=== PATIENT | male | born 1955 | race Caucasian/White ===

== ENCOUNTER → 2016-07-17 | Outpatient (CLI) | payer OTHER ==
[2016-07-17 21:31] LABS: Prothrombin Time 19.2 sec (9.0-12.0)
== END | disposition home or self-care (01) ==
LOC: MMGSC 16:39
PROVIDERS: ATTEND Family Medicine
DX: Z79.01 Long term (current) use of anticoagulants (principal); Z51.81 Encounter for therapeutic drug level monitoring
CPT/HCPCS: 85610

== ENCOUNTER → 2016-07-17 | Outpatient (CLI) | payer OTHER ==
[2016-07-17 21:28] LABS: CH 29.7; CHCM 32.3; HDW 2.59; HGB 12.6 gm/dL (13.0-17.5); MCH 29.9 pg (25.0-35.0); MCHC 32.3 g/dL (31.0-37.0); MCV 92.5 fL (80.0-100.0); Mean Platelet Volume 7.2; RBC 4.22 m/uL (4.30-5.90); RDW 12.8 % (11.5-15.5); WBC 6.7 k/uL (3.8-10.6)
[2016-07-17 21:34] LABS: ALT 40 U/L (21-72); AST 30 U/L (17-59)
== END | disposition home or self-care (01) ==
LOC: MMGSC 16:27
PROVIDERS: ATTEND Internal Medicine Endocrinology, Diabetes & Metabolism
DX: E05.00 Thyrotoxicosis with diffuse goiter without thyrotoxic crisis or storm (principal); K71.9 Toxic liver disease, unspecified; D70.1 Agranulocytosis secondary to cancer chemotherapy
CPT/HCPCS: 36415; 84439; 84443; 84450; 84460; 84481; 85027

== ENCOUNTER → 2016-08-25 | Outpatient (CLI) | payer BC ==
[2016-08-25 20:36] LABS: Calcium 9.1 mg/dL (8.4-10.2); Potassium 4.8 mmol/L (3.5-5.1); Total Bilirubin 0.4 mg/dL (0.2-1.3); Total Protein 6.9 g/dL (6.3-8.2)
[2016-08-25 20:40] LABS: Basophils % (A) 1 %; CH 29.9; CHCM 32.7; Eosinophils # (A) 0.2 k/uL (0-0.7); Eosinophils % (A) 3 %; HCT 43.4 % (39.0-53.0); HDW 2.69; HGB 13.8 gm/dL (13.0-17.5); Luc # (Auto) 0.16; Luc % (Auto) 2; Lymphocytes # (A) 2.3 k/uL (1.0-4.8); Lymphocytes % (A) 34 %; MCH 29.3 pg (25.0-35.0); MCHC 31.8 g/dL (31.0-37.0); MCV 92.1 fL (80.0-100.0); Mean Platelet Volume 7.7; Monocytes # (A) 0.4 k/uL (0-1.0); Monocytes % (A) 5 %; Neutrophils # (A) 3.6 k/uL (1.3-7.7); Neutrophils % (A) 54 %; RBC 4.71 m/uL (4.30-5.90); RDW 13.5 % (11.5-15.5); WBC 6.7 k/uL (3.8-10.6); WBC (Perox) 6.58
[2016-08-25 21:44] LABS: INR 1.4 (<1.1); Prothrombin Time 13.6 sec (9.0-12.0)
== END | disposition home or self-care (01) ==
LOC: MMGSC 16:06
PROVIDERS: ATTEND Family Medicine
DX: Z00.00 Encounter for general adult medical examination without abnormal findings (principal); Z12.5 Encounter for screening for malignant neoplasm of prostate; E03.9 Hypothyroidism, unspecified; Z79.01 Long term (current) use of anticoagulants
CPT/HCPCS: 84439; 80053; 80061; 84443; 85025; 85610; 84480; 36415; G0103

== ENCOUNTER → 2016-09-14 | Outpatient (CLI) | payer BC ==
[2016-09-14 18:24] LABS: CHCM 32.8; HCT 39.7 % (39.0-53.0); HDW 2.75; HGB 13.2 gm/dL (13.0-17.5); MCH 30.4 pg (25.0-35.0); MCHC 33.1 g/dL (31.0-37.0); MCV 91.8 fL (80.0-100.0); Mean Platelet Volume 7.7; RBC 4.32 m/uL (4.30-5.90); RDW 14.2 % (11.5-15.5); WBC 6.4 k/uL (3.8-10.6)
== END | disposition home or self-care (01) ==
LOC: MMGSC 15:20
PROVIDERS: ATTEND Internal Medicine Endocrinology, Diabetes & Metabolism
DX: E05.00 Thyrotoxicosis with diffuse goiter without thyrotoxic crisis or storm (principal); D70.1 Agranulocytosis secondary to cancer chemotherapy; K71.9 Toxic liver disease, unspecified
CPT/HCPCS: 36415; 84439; 84443; 84450; 84460; 84481; 85027

== ENCOUNTER → 2016-09-14 | Outpatient (CLI) | payer BC ==
[2016-09-14 18:36] LABS: INR 2.1 (<1.1); Prothrombin Time 20.2 sec (9.0-12.0)
== END | disposition home or self-care (01) ==
LOC: MMGSC 15:13
PROVIDERS: ATTEND Family Medicine
DX: Z79.01 Long term (current) use of anticoagulants (principal); Z51.81 Encounter for therapeutic drug level monitoring
CPT/HCPCS: 36415; 85610

== ENCOUNTER → 2016-10-27 | Outpatient (CLI) | payer BC ==
[2016-10-27 19:34] LABS: INR 1.3 (<1.1); Prothrombin Time 12.6 sec (9.0-12.0)
== END | disposition home or self-care (01) ==
LOC: MMGSC 15:45
PROVIDERS: ATTEND Family Medicine
DX: Z51.81 Encounter for therapeutic drug level monitoring (principal); Z79.01 Long term (current) use of anticoagulants
CPT/HCPCS: 36415; 85610

== ENCOUNTER → 2017-02-02 | Outpatient (CLI) | payer BC ==
[2017-02-02 21:14] LABS: CH 30.3; CHCM 32.4; HCT 41.7 % (39.0-53.0); HGB 13.7 gm/dL (13.0-17.5); MCH 30.8 pg (25.0-35.0); MCHC 32.8 g/dL (31.0-37.0); Mean Platelet Volume 7.2; RBC 4.44 m/uL (4.30-5.90); RDW 13.5 % (11.5-15.5); WBC 7.8 k/uL (3.8-10.6)
== END ==
LOC: MMGSC 16:02
PROVIDERS: ATTEND Internal Medicine Endocrinology, Diabetes & Metabolism
DX: E05.00 Thyrotoxicosis with diffuse goiter without thyrotoxic crisis or storm (principal); K71.9 Toxic liver disease, unspecified
CPT/HCPCS: 36415; 84439; 84443; 84450; 84460; 84481; 85027

== ENCOUNTER → 2017-02-02 | Outpatient (CLI) | payer BC ==
[2017-02-02 21:09] LABS: Prothrombin Time 10.3 sec (9.0-12.0)
== END ==
LOC: MMGSC 16:04
PROVIDERS: ATTEND Family Medicine
DX: Z51.81 Encounter for therapeutic drug level monitoring (principal); Z79.01 Long term (current) use of anticoagulants
CPT/HCPCS: 85610

== ENCOUNTER → 2017-02-16 | Outpatient (CLI) | payer BC ==
[2017-02-16 17:11] LABS: CH 30.2; CHCM 33.1; HCT 38.8 % (39.0-53.0); HDW 2.52; HGB 13.2 gm/dL (13.0-17.5); MCH 31.2 pg (25.0-35.0); MCV 91.7 fL (80.0-100.0); Mean Platelet Volume 6.6; RBC 4.23 m/uL (4.30-5.90); RDW 13.5 % (11.5-15.5); WBC 6.8 k/uL (3.8-10.6)
== END | disposition home or self-care (01) ==
LOC: LABPAT 16:39
PROVIDERS: ATTEND Internal Medicine Interventional Cardiology
DX: Z01.812 Encounter for preprocedural laboratory examination (principal); I48.2 Chronic atrial fibrillation
CPT/HCPCS: 36415; 80051; 82565; 84520; 85027

== ENCOUNTER → 2017-05-25 | Outpatient (CLI) | payer BC ==
[2017-05-25 20:08] LABS: INR 1.4 (<1.2); Prothrombin Time 13.8 sec (9.0-12.0)
== END | disposition home or self-care (01) ==
LOC: MMGSC 16:09
PROVIDERS: ATTEND Family Medicine
DX: E03.9 Hypothyroidism, unspecified (principal); Z79.01 Long term (current) use of anticoagulants
CPT/HCPCS: 36415; 84439; 84443; 84481; 85610

== ENCOUNTER → 2017-05-31 | Outpatient (CLI) | payer BC ==
[2017-05-31 18:31] LABS: INR 3.8 (<1.2); Prothrombin Time 37.6 sec (9.0-12.0)
== END ==
LOC: MMGSC 13:48
PROVIDERS: ATTEND Family Medicine
DX: Z51.81 Encounter for therapeutic drug level monitoring (principal); Z79.01 Long term (current) use of anticoagulants
CPT/HCPCS: 36415; 85610

== ENCOUNTER → 2017-06-07 | Outpatient (CLI) | payer BC ==
[2017-06-07 20:25] LABS: INR 1.7 (<1.2); Prothrombin Time 16.2 sec (9.0-12.0)
== END ==
LOC: MMGSC 15:10
PROVIDERS: ATTEND Family Medicine
DX: Z51.81 Encounter for therapeutic drug level monitoring (principal); Z79.01 Long term (current) use of anticoagulants
CPT/HCPCS: 36415; 84439; 84443; 84481; 85610

== ENCOUNTER → 2017-07-09 | Outpatient (CLI) | payer BC ==
[2017-07-09 18:53] LABS: Prothrombin Time 18.5 sec (9.0-12.0)
[2017-07-09 19:10] LABS: T4, Free (Free Thyroxine) 0.59 ng/dL (0.78-2.19)
== END | disposition home or self-care (01) ==
LOC: MMGSC 16:50
PROVIDERS: ATTEND Family Medicine
DX: E03.9 Hypothyroidism, unspecified (principal); Z51.81 Encounter for therapeutic drug level monitoring; Z79.01 Long term (current) use of anticoagulants
CPT/HCPCS: 36415; 84439; 84443; 84481; 85610

== ENCOUNTER → 2017-07-21 | Outpatient (CLI) | payer BC | END | disposition home or self-care (01) | LOC: MMGSC 15:11 | PROVIDERS: ATTEND Family Medicine | DX: R04.0 Epistaxis (principal) | CPT/HCPCS: 87070; 87077; 87186 ==

== ENCOUNTER → 2017-08-04 | Day surgery (SDC) | payer BC ==
[2017-08-03 13:59] VITALS: BMI 25.1
[~2017-08-04] MED LIST: LACTATED RINGERS 1,000 ML IV SCH; LIDOCAINE 1% 20 ML VIAL (10MG/ML) FOR IV START INTRADERMA ONE; LIDOCAINE 1% 20 ML VIAL (10MG/ML) FOR IV START INTRADERMA PRN; LIDOCAINE 1% INJ 10MG/ML (20 ML MDV) ONE; PROPOFOL 10 MG/ML 20 ML VIAL IV ONE; SODIUM CHLORIDE 0.9% 500 ML IV ONE
[2017-08-04 09:39] VITALS: RESP 16; TEMP 97.8
--- NOTE | 2017-08-04 10:21 | P.OP ---
Date of Procedure: 08/11/17 Preoperative Diagnosis: Refractory gastroesophageal reflux disease History of hiatal hernia History of anemia Postoperative Diagnosis: Same Procedure(s) Performed: Esophagogastroduodenoscopy with biopsy Anesthesia: MAC Surgeon: Francoise Alexis Pathology: other Condition: stable Disposition: PACU Indications for Procedure: 61 years old male with known history of hiatal hernia and reflux disease presents with worsening symptoms. Informed consent obtained and patient elected to undergo EGD with biopsy. Operative Findings: Refractory GERD Description of Procedure: A timeout was performed to verify the correct patient and correct procedure. Patient was on continuous vitals and pulse ox monitoring throughout the procedure. She was placed in lateral decubitus position and an oral bite block was inserted. A well-lubricated Olympus upper endoscope was passed per orally. The esophagus was intubated without difficulty. The vocal cords were visualized and protected at all times. The endoscope was passed beyond the pylorus into the first and second portion of the duodenum. Duodenitis noted and random biopsies taken using cold biopsy forceps. Two random biopsies were taken from the gastric antrum using cold biopsy forceps. The scope was then retroflexed. Hill grade 2 hiatal hernia was noted. No mass, active ulcer or bleeding stigmata noted within the gastric lumen. The GE junction is measured at 35 cm from the incisors and diaphragmatic impression at 38 cms . LA grade 1 reflux esophagitis noted and the area was biopsied using cold biopsy forceps. The endoscope was gradually withdrawn. No abnormality identified in the remaining esophagus. Patient tolerated the procedure well and was taken to post anesthesia care unit in stable condition. FINAL DIAGNOSIS: 1. Hill Grade 1 Hiatal hernia 2. Gastro esophageal reflux disease 3. Duodenitis SPECIMEN: Antral biopsy GE junction bx Duodenum bx RECOMMENDATION: 1. Esophageal 24 hr pH and manometry study Final Pathologic Diagnosis A. DUODENAL MUCOSA (ENDOSCOPIC BIOPSY): NO SIGNIFICANT DIAGNOSTIC ALTERATIONS ; NO EPITHELIAL LYMPHOCYTOSIS, VILLOUS ATROPHY OR OTHER SPRUE-LIKE CHANGES IDENTIFIED. B. GASTRIC MUCOSA, ANTRUM (ENDOSCOPIC BIOPSY): NO SIGNIFICANT DIAGNOSTIC ALTERATIONS. NO HELICOBACTER-LIKE ORGANISMS ARE IDENTIFIED BY IMMUNOSTAIN (CONTROLS APPROPRIATE). C. SQUAMOUS AND GASTRIC MUCOSA, GASTROESOPHAGEAL JUNCTION (ENDOSCOPIC BIOPSY): MILD CHRONIC ESOPHAGO-GASTRITIS; NO GOBLET CELL METAPLASIA, DYSPLASIA OR MALIGNANCY IDENTIFIED.
[2017-08-04 11:31] VITALS: BP 118/70; PULSE 70
== END ==
LOC: ORWHC2ENDO 08:27
PROVIDERS: ATTEND Surgery
DX: K21.0 Gastro-esophageal reflux disease with esophagitis (principal); K29.70 Gastritis, unspecified, without bleeding; K44.9 Diaphragmatic hernia without obstruction or gangrene; K29.80 Duodenitis without bleeding; E05.90 Thyrotoxicosis, unspecified without thyrotoxic crisis or storm; D62 Acute posthemorrhagic anemia; I48.91 Unspecified atrial fibrillation; Z79.01 Long term (current) use of anticoagulants; Z79.82 Long term (current) use of aspirin; Z79.899 Other long term (current) drug therapy
CPT/HCPCS: 88305; 88342; 43239; J2001; J2704

== ENCOUNTER → 2017-08-11 | Outpatient (CLI) | payer BC ==
[2017-08-11 19:21] LABS: INR 1.4 (<1.2)
== END | disposition home or self-care (01) ==
LOC: MMGSC 16:57
PROVIDERS: ATTEND Family Medicine
DX: Z51.81 Encounter for therapeutic drug level monitoring (principal); Z79.01 Long term (current) use of anticoagulants
CPT/HCPCS: 36415; 85610

== ENCOUNTER → 2017-08-23 | Outpatient (CLI) | payer BC ==
[2017-08-23 20:41] LABS: INR 2.3 (<1.2); Prothrombin Time 20.9 sec (9.0-12.0)
== END | disposition home or self-care (01) ==
LOC: MMGSC 16:48
PROVIDERS: ATTEND Family Medicine
DX: Z51.81 Encounter for therapeutic drug level monitoring (principal); Z79.01 Long term (current) use of anticoagulants
CPT/HCPCS: 36415; 85610

== ENCOUNTER → 2018-01-14 | Day surgery (SDC) | payer BC ==
[2018-01-10 16:00] VITALS: BMI 23.3
--- NOTE | 2018-01-13 18:02 | P.GSHP ---
History of Present Illness H&P Date: 01/14/18 CHIEF COMPLAINT: Inguinal hernia, left HISTORY OF PRESENT ILLNESS: The patient is a 62-year-old male who presents with a history of swelling and pain along the left groin. He's noted increased swelling including pain of the area. Now he presents for repair of his inguinal hernia. PAST MEDICAL HISTORY: Please see list. PAST SURGICAL HISTORY: Please see list. MEDICATIONS: Please see list. ALLERGIES: Please see list. SOCIAL HISTORY: No illicit drug use FAMILY HISTORY: No reports of Crohn disease or ulcerative colitis. REVIEW OF ORGAN SYSTEMS: CONSTITUTIONAL: No reports of fevers or chills. No reports of weight loss despite prior attempts. GI: Denies any blood in stools or constipation. PHYSICAL EXAM: VITAL SIGNS: Stable GENERAL: Well-developed pleasant male in no acute distress. HEENT: No scleral icterus. Extraocular movements grossly intact. Moist buccal mucosa. NECK: Supple without lymphadenopathy. CHEST: Unlabored respirations. Equal bilateral excursions. CARDIOVASCULAR: Regular rate and rhythm. Distal 2+ pulses. ABDOMEN: Soft, nondistended. No peritoneal signs. Palpable defect of the left groin. MUSCULOSKELETAL: No clubbing, cyanosis, or edema. ASSESSMENT: 1. Inguinal hernia, left PLAN: 1. Recommend proceeding with a robotic inguinal repair with mesh with possible bilateral approach. 2. Benefits and risks of surgical intervention was discussed including possibility of open technique. 3. DVT prophylaxis. 4. Antibiotic prophylaxis. 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 ANEMIA (HX OF IRON INFUSIONS., GRAVES DISEASE., RT KIDNEY-WEAK- POSSIBLE KIDNEY TRANSPLANT TO GO TO [facility] IN WEEKS. History of Any Multi-Drug Resistant Organisms: None Reported Past Surgical History: Hernia Repair Additional Past Surgical History / Comment(s): lt kidney removed (CHILD). EGD Past Anesthesia/Blood Transfusion Reactions: No Reported Reaction Smoking Status: Never smoker - Past Family History Mother Family Medical History: No Reported History Medications and Allergies Home Medications Medication Instructions Recorded Confirmed Type PARoxetine [Paxil] 20 mg PO DAILY 05/02/14 01/10/18 History Warfarin [Coumadin] 2.5 mg PO DAILY 10/22/14 07/02/18 History Calcitriol 0.25 mcg PO DIRECTED 08/03/17 01/10/18 History Cholecalciferol (Vitamin D3) 2,000 unit PO DAILY 08/03/17 01/10/18 History [Vitamin D3] Methimazole [Tapazole] 20 mg PO BID 08/03/17 01/10/18 History Allergies Allergy/AdvReac Type Severity Reaction Status Date / Time No Known Allergies Allergy Verified 01/10/18 15:51
[~2018-01-14] MED LIST changes: +BUPIVACAINE (PF) 0.5% 30 ML VIAL SQ ONE; +DEXAMETHASONE SOD PHOSPHATE 10 MG/ML 1 ML VIAL IV ONE; +GLYCOPYRROLATE 0.2 MG/ML 2 ML VIAL ONE; +HEPARIN SODIUM,PORCINE 5,000 UNIT/ML 1 ML VIAL SQ ONE; +HEPARIN SODIUM,PORCINE 5,000 UNIT/ML 1 ML VIAL SQ STA; +HYDROcodone/APAP 5-325MG 1 EACH TAB PO ONE; +HYDROmorphone 0.5 MG/0.5 ML SYRINGE IVP PRN; +KETOROLAC 30 MG/ML 1 ML VIAL ONE; +LABETALOL 5 MG/ML VIAL MDV ONE; +LACTATED RINGERS 1,000 ML IV ONE; -LACTATED RINGERS 1,000 ML IV SCH; -LIDOCAINE 1% 20 ML VIAL (10MG/ML) FOR IV START INTRADERMA ONE; +MIDAZOLAM 2 MG/2 ML VIAL IV PRN; +MIDAZOLAM 2 MG/2 ML VIAL ONE; +NEOSTIGMINE 1 MG/ML 10 ML VIAL ONE; +ONDANSETRON 4 MG/2 ML VIAL IVP ONE; +ROCURONIUM BROMIDE 10 MG/ML 10 ML VIAL IV ONE; +SCOPOLAMINE 1.5MG/72HR PATCH TRANSDERM ONE; -SODIUM CHLORIDE 0.9% 500 ML IV ONE; +TAMSULOSIN 0.4 MG CAP.ER.24H PO STA; +ceFAZolin IN SWFI 2 GM/20 ML SYRINGE IVP ONE; +fentaNYL (PF) 50 MCG/ML 2 ML AMP ONE; +hydrALAZINE HCL 20 MG/ML 1 ML VIAL IVP ONE
[2018-01-14 10:03] LABS: INR 1.2 (<1.2); Prothrombin Time 11.4 sec (9.0-12.0)
[2018-01-14] MEDS: LACTATED RINGERS 1,000 ML IV SCH ×2 (10:05→11:41)
--- NOTE | 2018-01-14 13:04 | P.OP ---
Date of Procedure: 01/14/18 Description of Procedure: SURGEON: JACKELIN HARDY MD PREOPERATIVE DIAGNOSES: 1. History of right inguinal hernia repaire 2. Left inguinal hernia, initial 3. Atrial fibrillation 4. History of CVA 5. Chronic anticoagulation 6. Hyperlipidemia POSTOPERATIVE DIAGNOSES: 1. History of right inguinal hernia repaire 2. Left inguinal hernia, initial 3. Atrial fibrillation 4. History of CVA 5. Chronic anticoagulation 6. Hyperlipidemia 7. Symptomatic left incarcerated inguinal hernia, indirect. 8. Inguinal lipoma, left side OPERATION: 1. Robotic assisted da Bob Xi laparoscopic left inguinal hernia repair with ventralight ST mesh, 11.4 cm. 2. Excision of inguinal lipoma, left side ANESTHESIA: General with local anesthetic ESTIMATED BLOOD LOSS: 5 mL. SPECIMENS REMOVED: Left inguinal lipoma and sac COMPLICATIONS: None. FINDINGS: 1. Left inguinal hernia, indirect, 3+ cm, Nyhus type 3. 2. Less than 1 cm recurrent right indirect inguinal hernia with mesh identified 3. Console time 26 minutes INDICATIONS: The patient is a 62-year-old gentleman who presents with history of right groin hernia repair now with left-sided pain. Now presents for definitive surgical intervention. Laparoscopic versus open and robotic approaches were discussed. Benefits and risks including bleeding, infection, injury to the vas deferens as well as sterility and chronic groin pain were reviewed. Placement of mesh was also described. Informed consent was obtained. DESCRIPTION: In the preoperative area, the patient was marked with indelible marker along the left groin. The patient was brought to the operating room and initially laid in supine position. After general induction, he was repositioned in modified lithotomy position. The abdomen had been prepped and draped in standard sterile fashion. Ioban draping was also placed. Prior to incision, a timeout protocol was confirmed with surgical team regarding patient's name including procedures to be performed and location along the left groin. Initial positioning for the robotic assisted ports were selected whereby 20 cm superior to the target anatomy, 0 degree 5 mm laparoscopic trocar entry was performed at the left upper quadrant. The abdomen was insufflated to 15 mmHg which he had tolerated well. Diagnostic laparoscopy demonstrated lesions along the left pelvis. Additionally the sigmoid colon was adherent to the left groin with a large indirect left inguinal hernia over 3 cm in size. The right groin had less than 1 cm albeit very small recurrent indirect inguinal hernia for which he was asymptomatic. Next, along the epigastrium, 8 mm robot trocar was placed. An 8-mm robotic trocar was placed under direct visualization at the right upper quadrant. The 5 mm port was exchanged for a 8 mm trocar. All trocars were positioned between 8 to 10-cm apart from each other. The [employer] XI robot was primed, draped, prepared for docking along the left side of the patient. I then went to the [employer] Xi console. The project construction assistant manager was at bedside for exchange of the robot arms and equipment. Attention was brought to the left groin where peritoneal adhesions were identified incorporating the greater omentum and addressed using sharp dissection with a scissor and cautery. At the left groin, a over 3 cm indirect inguinal hernia was identified. The hernia sac was evaginated whereby the peritoneum was scored using Endo scissors with cautery. The hernia sac had reached to the scrotum and was transected using scissors with cautery. Once completely reduced into the abdominal cavity, the peritoneal sac of the hernia was stripped without a lipoma identified. The sac was resected and then passed off for further pathological analysis. The size of the hernia defect was 3 cm with intraoperative films obtained. Using a 2-0 VLOC, the peritoneal defect of the left inguinal hernia site was closed using a pursestring suture.. The defect was found to be completely closed with complete reduction of the left inguinal hernia was confirmed. As an onlay, an 11.[address] mesh by [facility] was cut in half and entered into the abdominal cavity via the 8 mm trocar. The mesh was tacked to the pelvis using 2-0 VLOC 9-inch length sutures. The robot was undocked from the patient's bedside. I then rescrubbed into the case. Insufflation was released from the abdominal cavity and all instruments were removed from the abdominal cavity. The rest of incisions were reapproximated using 4-0 Monocryl in a running subcuticular fashion. Local anesthetic was placed along the incision including for a groin block. Incisions were cleansed using dilute hydrogen peroxide. Liquid glue was applied to the skin. At the end of the procedure, the needle, sponge and instrument counts had been verified correct by the digital field service technician. The patient had tolerated the procedure well and was taken to the postanesthesia care unit in stable condition. Plan - Discharge Summary New Discharge Prescriptions: No Action PARoxetine [Paxil] 20 mg PO DAILY Warfarin [Coumadin] 2.5 mg PO DAILY Methimazole [Tapazole] 20 mg PO BID Cholecalciferol (Vitamin D3) [Vitamin D3] 2,000 unit PO DAILY Calcitriol 0.25 mcg PO DIRECTED Discharge Medication List PARoxetine [Paxil] 20 mg PO DAILY 05/02/14 [History] Warfarin [Coumadin] 2.5 mg PO DAILY 05/02/14 [History] Calcitriol 0.25 mcg PO DIRECTED 08/03/17 [History] Cholecalciferol (Vitamin D3) [Vitamin D3] 2,000 unit PO DAILY 08/03/17 [History] Methimazole [Tapazole] 20 mg PO BID 08/03/17 [History]
[2018-01-14 13:18] VITALS: TEMP 96.9
[2018-01-14 14:20] VITALS: BP 118/77; PULSE 99; RESP 17
== END | disposition home or self-care (01) ==
LOC: OR 08:38
PROVIDERS: ATTEND Surgery Plastic and Reconstructive Surgery
DX: K40.30 Unilateral inguinal hernia, with obstruction, without gangrene, not specified as recurrent (principal); D17.79 Benign lipomatous neoplasm of other sites; K66.0 Peritoneal adhesions (postprocedural) (postinfection); I48.91 Unspecified atrial fibrillation; K21.9 Gastro-esophageal reflux disease without esophagitis; E78.5 Hyperlipidemia, unspecified; I10 Essential (primary) hypertension; Z90.5 Acquired absence of kidney; D64.9 Anemia, unspecified; E05.00 Thyrotoxicosis with diffuse goiter without thyrotoxic crisis or storm; Z86.73 Personal history of transient ischemic attack (TIA), and cerebral infarction without residual deficits; Z79.01 Long term (current) use of anticoagulants; Z79.899 Other long term (current) drug therapy
CPT/HCPCS: 85610; 49650; C1781; J2250; J0360; J1644; J1100; J2710; J2405; J2001; J3010; J1885; J2704; J0690; 88302

== ENCOUNTER → 2018-01-17 | Outpatient (CLI) | payer BC ==
[2018-01-17 15:15] LABS: Basophils % (A) 1 %; Eosinophils # (A) 0.3 k/uL (0-0.7); Eosinophils % (A) 6 %; HCT 32.4 % (39.0-53.0); HGB 10.6 gm/dL (13.0-17.5); Lymphocytes # (A) 1.4 k/uL (1.0-4.8); Lymphocytes % (A) 27 %; MCH 30.7 pg (25.0-35.0); MCHC 32.8 g/dL (31.0-37.0); MCV 93.6 fL (80.0-100.0); Monocytes # (A) 0.3 k/uL (0-1.0); Monocytes % (A) 6 %; Neutrophils % (A) 59 %; Platelet Count 194 k/uL (150-450); RBC 3.46 m/uL (4.30-5.90); WBC 5.2 k/uL (3.8-10.6)
[2018-01-17 15:32] LABS: Albumin 3.6 g/dL (3.5-5.0); Calcium 8.9 mg/dL (8.4-10.2); Potassium 5.3 mmol/L (3.5-5.1)
[2018-01-18 02:10] LABS: Iron Saturation 16.15 (15.00-50.00)
[2018-01-18 02:44] LABS: Parathyroid Hormone Intact 217.2 pg/mL (14.0-72.0)
== END | disposition home or self-care (01) ==
LOC: LABWHC1 14:19
PROVIDERS: ATTEND Internal Medicine Nephrology
DX: N18.5 Chronic kidney disease, stage 5 (principal); M10.9 Gout, unspecified; E21.3 Hyperparathyroidism, unspecified; D63.1 Anemia in chronic kidney disease
CPT/HCPCS: 36415; 80048; 82040; 82728; 83540; 83550; 83735; 83970; 84100; 84550; 85025

== ENCOUNTER 2018-02-02 19:06 | Inpatient (IN) | payer BC ==
[2018-02-02] MEDS ORDERED: MORPHINE SULFATE 2 MG/ML SYRINGE IVP STA (19:35)
[2018-02-02] MEDS ORDERED: SODIUM CHLORIDE 0.9% 1,000 ML IV STA (19:35)
[2018-02-02] MEDS ORDERED: ONDANSETRON 4 MG/2 ML VIAL IVP STA (19:35)
--- NOTE | 2018-02-02 19:40 | ED ---
Abdominal Pain HPI - General Source: patient Mode of arrival: ambulatory Limitations: no limitations <Jessica Desouza - Last Filed: 02/03/18 17:09> <Grupo Mazariegos - Last Filed: 02/08/18 07:53> - General Chief Complaint: Abdominal Pain Stated Complaint: 2wks post surgical pain,vomiting Time Seen by Provider: 02/02/18 19:19 - History of Present Illness Initial Comments: 62-year-old male patient presents to the emergency department today for evaluation of abdominal pain, nausea, and vomiting that started this morning. Patient states that he underwent hernia repair with Dr. Carrera on 2017. Patient states things had been going well however he went back to work yesterday. Patient states that he resume normal duty which included lifting heavy items. Patient states that today started have some discomfort around the left lateral incision site. Patient states it seems to be bulging out. Patient states that he is now having more severe abdominal pain. States he has been nauseated throughout the day and did vomit twice at work. Patient denies any hematemesis. States he has been having normal bowel movements however today they were more loose. He denies any hematochezia or melena. Denies any fevers or chills. Denies any chest pain or shortness of breath with this. States that he did have some sweats after the vomiting episodes. Patient does also have a history of kidney failure and is being put on a transplant list in the near future. He does not yet receive dialysis. Patient denies any recent rash, back pain, numbness, tingling, dizziness, weakness, hematuria, dysuria, urinary urgency, urinary frequency, headache, visual changes, or any other complaints. (Jessica Desouza) - Related Data Home Medications Medication Instructions Recorded Confirmed PARoxetine [Paxil] 20 mg PO DAILY 05/02/14 02/03/18 Warfarin [Coumadin] 2.5 mg PO SUMOTUWETH 05/02/14 02/03/18 Calcitriol 0.25 mcg PO DAILY 08/03/17 02/03/18 Cholecalciferol (Vitamin D3) 4,000 unit PO DAILY 08/03/17 02/03/18 [Vitamin D3] Methimazole [Tapazole] 10 mg PO DAILY 08/03/17 02/03/18 Febuxostat [Uloric] 40 mg PO DAILY 02/03/18 02/03/18 amLODIPine [Norvasc] 5 mg PO DAILY 02/03/18 02/03/18 Previous Rx's Medication Instructions Recorded Sodium Bicarbonate Tab 650 mg PO BID #60 tab 02/06/18 Allergies Allergy/AdvReac Type Severity Reaction Status Date / Time No Known Allergies Allergy Verified 02/02/18 19:15 Review of Systems ROS Other: All systems not noted in ROS Statement are negative. <Jessica Desouza - Last Filed: 02/03/18 17:09> ROS Other: All systems not noted in ROS Statement are negative. <Grupo Mazariegos - Last Filed: 02/08/18 07:53> ROS Statement: Those systems with pertinent positive or pertinent negative responses have been documented in the HPI. 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 ANEMIA (HX OF IRON INFUSIONS., GRAVES DISEASE., RECENT FALL ON ICE AND HAS LARGE BRUISE LEFT HIP. , HAVING NAUSEA, GAS AND BLOATING. History of Any Multi-Drug Resistant Organisms: None Reported Past Surgical History: Hernia Repair Additional Past Surgical History / Comment(s): lt kidney removed (CHILD) Past Anesthesia/Blood Transfusion Reactions: No Reported Reaction Past Psychological History: No Psychological Hx Reported Smoking Status: Never smoker Past Alcohol Use History: None Reported Past Drug Use History: None Reported - Past Family History Mother Family Medical History: No Reported History <Jessica Desouza - Last Filed: 02/03/18 17:09> General Exam Limitations: no limitations General appearance: alert, in no apparent distress, other (This is a well- developed, well-nourished adult male patient in no acute distress. Vital signs upon presentation are temperature 98.9F, pulse 91, respirations 18, blood pressure 137/68, pulse ox 99% on room air.) Eye exam: Present: normal appearance, PERRL, EOMI. Absent: scleral icterus, conjunctival injection, periorbital swelling ENT exam: Present: normal exam, normal oropharynx, mucous membranes moist Respiratory exam: Present: normal lung sounds bilaterally. Absent: respiratory distress, wheezes, rales, rhonchi, stridor Cardiovascular Exam: Present: regular rate, normal rhythm, normal heart sounds. Absent: systolic murmur, diastolic murmur, rubs, gallop, clicks GI/Abdominal exam: Present: soft, tenderness (Left lateral abdominal pain. ), normal bowel sounds, other (No erythema surrounding incision sites, all incisions are well approximated and healing well, no evidence of drainage.). Absent: distended, guarding, rebound, rigid, hernia Neurological exam: Present: alert, oriented X3, CN II-XII intact Psychiatric exam: Present: normal affect, normal mood Skin exam: Present: warm, dry, intact, normal color. Absent: rash <Jessica Desouza - Last Filed: 02/03/18 17:09> Vital Signs 02/02/18 19:10 Temperature 98.9 F Pulse Rate 91 Respiratory 18 Rate Blood Pressure 137/68 O2 Sat by Pulse 99 Oximetry Medical Decision Making - Lab Data Result diagrams: 02/03/18 08:26 02/03/18 08:26 - EKG Data -: EKG Interpreted by Al - Radiology Data Radiology results: report reviewed <Jessica Desouza - Last Filed: 02/03/18 17:09> - Lab Data Result diagrams: 02/06/18 06:34 02/06/18 06:34 <Grupo Mazariegos - Last Filed: 02/08/18 07:53> - Medical Decision Making 62-year-old male patient who recently underwent hernia repair by Dr. Sheth presented to the emergency department today for complaints of increased abdominal pain, nausea, and vomiting. Physical examination did reveal midepigastric tenderness as well as left upper quadrant tenderness. Patient also had some incisional tenderness to the left lateral incision. Labs reviewed and showed a hemoglobin of 10.7, INR 6.5, BUN 66, creatinine 4.0, amylase 618, lipase 5015. Did perform CT abdomen and pelvis for evaluation after recent surgery, did show a 3 cm fluid collection over the left head dominant S rectus muscle consistent with seroma. Ultrasound of the right upper quadrant was obtained and showed no evidence for gallstones or cholecystitis. Patient will be admitted to the hospital with GI consult for further evaluation. IV fluids, pain medication, and nausea has been provided. (Jessica Desouza) Resident/PA attestation: I, Dr. Grupo Mazariegos, personally saw and examined the patient. I have reviewed and agree with the resident/PA findings, including all diagnostic interpretations and treatment plans as written unless otherwise stated. I was present for the gilliam portions of any procedures performed and inclusive time noted for any critical care statement. (Grupo Mazariegos) - Lab Data Lab Results 02/02/18 02/02/18 02/02/18 Range/Units 19:54 19:54 19:54 WBC 4.5 (3.8-10.6) k/uL RBC 3.48 L (4.30-5.90) m/uL Hgb 10.7 L (13.0-17.5) gm/dL Hct 31.8 L (39.0-53.0) % MCV 91.4 (80.0-100.0) fL MCH 30.8 (25.0-35.0) pg MCHC 33.7 (31.0-37.0) g/dL RDW 14.7 (11.5-15.5) % Plt Count 217 (150-450) k/uL Neutrophils % 77 % Lymphocytes % 11 % Monocytes % 6 % Eosinophils % 3 % Basophils % 1 % Neutrophils # 3.4 (1.3-7.7) k/uL Lymphocytes # 0.5 L (1.0-4.8) k/uL Monocytes # 0.3 (0-1.0) k/uL Eosinophils # 0.1 (0-0.7) k/uL Basophils # 0.0 (0-0.2) k/uL PT (9.0-12.0) sec INR (<1.2) APTT (22.0-30.0) sec Sodium 138 (137-145) mmol/L Potassium 4.4 (3.5-5.1) mmol/L Chloride 105 (98-107) mmol/L Carbon Dioxide 20 L (22-30) mmol/L Anion Gap 13 mmol/L BUN 66 H (9-20) mg/dL Creatinine 4.00 H (0.66-1.25) mg/dL Est GFR (CKD-EPI)AfAm 18 (>60 ml/min/1.73 sqM) Est GFR (CKD-EPI)NonAf 15 (>60 ml/min/1.73 sqM) Glucose 101 H (74-99) mg/dL Plasma Lactic Acid Ishan 1.3 (0.7-2.0) mmol/L Calcium 9.0 (8.4-10.2) mg/dL Total Bilirubin 0.4 (0.2-1.3) mg/dL AST 24 (17-59) U/L ALT 26 (21-72) U/L Alkaline Phosphatase 69 (38-126) U/L Total Protein 6.3 (6.3-8.2) g/dL Albumin 3.9 (3.5-5.0) g/dL Amylase 618 H* (30-110) U/L Lipase 5015 H (23-300) U/L Urine Color Urine Appearance (Clear) Urine pH (5.0-8.0) Ur Specific Totz (1.001-1.035) Urine Protein (Negative) Urine Glucose (UA) (Negative) Urine Ketones (Negative) Urine Blood (Negative) Urine Nitrite (Negative) Urine Bilirubin (Negative) Urine Urobilinogen (<2.0) mg/dL Ur Leukocyte Esterase (Negative) Urine RBC (0-5) /hpf Urine WBC (0-5) /hpf 02/02/18 02/02/18 Range/Units 19:54 20:35 WBC (3.8-10.6) k/uL RBC (4.30-5.90) m/uL Hgb (13.0-17.5) gm/dL Hct (39.0-53.0) % MCV (80.0-100.0) fL MCH (25.0-35.0) pg MCHC (31.0-37.0) g/dL RDW (11.5-15.5) % Plt Count (150-450) k/uL Neutrophils % % Lymphocytes % % Monocytes % % Eosinophils % % Basophils % % Neutrophils # (1.3-7.7) k/uL Lymphocytes # (1.0-4.8) k/uL Monocytes # (0-1.0) k/uL Eosinophils # (0-0.7) k/uL Basophils # (0-0.2) k/uL PT 59.4 H (9.0-12.0) sec INR 6.5 H* (<1.2) APTT 49.4 H (22.0-30.0) sec Sodium (137-145) mmol/L Potassium (3.5-5.1) mmol/L Chloride (98-107) mmol/L Carbon Dioxide (22-30) mmol/L Anion Gap mmol/L BUN (9-20) mg/dL Creatinine (0.66-1.25) mg/dL Est GFR (CKD-EPI)AfAm (>60 ml/min/1.73 sqM) Est GFR (CKD-EPI)NonAf (>60 ml/min/1.73 sqM) Glucose (74-99) mg/dL Plasma Lactic Acid Ishan (0.7-2.0) mmol/L Calcium (8.4-10.2) mg/dL Total Bilirubin (0.2-1.3) mg/dL AST (17-59) U/L ALT (21-72) U/L Alkaline Phosphatase (38-126) U/L Total Protein (6.3-8.2) g/dL Albumin (3.5-5.0) g/dL Amylase (30-110) U/L Lipase (23-300) U/L Urine Color Light Yellow Urine Appearance Clear (Clear) Urine pH 6.0 (5.0-8.0) Ur Specific Totz 1.010 (1.001-1.035) Urine Protein 3+ H (Negative) Urine Glucose (UA) Negative (Negative) Urine Ketones Negative (Negative) Urine Blood Moderate H (Negative) Urine Nitrite Negative (Negative) Urine Bilirubin Negative (Negative) Urine Urobilinogen <2.0 (<2.0) mg/dL Ur Leukocyte Esterase Negative (Negative) Urine RBC 1 (0-5) /hpf Urine WBC 1 (0-5) /hpf - EKG Data EKG Comments: EKG obtained at 2022 shows atrial fibrillation with a ventricular rate is 79, QRS duration 80, QT 344, QTC 394. (Jessica Desouza) - Radiology Data CT of the abdomen and pelvis without contrast due to kidney function was obtained. Report was reviewed in its entirety. Impression by Dr. Chayito Westbrook shows 3 cm mean diameter left lower quadrant fluidlike collection anteriorly. Incidental left and right coronary calcifications noted. Incidental pleural calcifications, consistent with asbestos related change. Ultrasound of the abdomen, right upper quadrant was obtained. Report was reviewed in its entirety. Impression by Dr. Zepeda shows no shadowing mobile gallstones or ultrasound evidence for acute cholecystitis. (Jessica Desouza) Disposition Decision to Admit Reason: Admit from <Jessica Desouza - Last Filed: 02/03/18 17:09> <Grupo Mazariegos - Last Filed: 02/08/18 07:53> Clinical Impression: Acute pancreatitis, Coagulopathy Disposition: ADMITTED IP TO THIS [facility] Condition: Stable
[2018-02-02 20:18] LABS: Basophils % (A) 1 %; Eosinophils # (A) 0.1 k/uL (0-0.7); Eosinophils % (A) 3 %; HCT 31.8 % (39.0-53.0); HGB 10.7 gm/dL (13.0-17.5); Lymphocytes # (A) 0.5 k/uL (1.0-4.8); Lymphocytes % (A) 11 %; MCH 30.8 pg (25.0-35.0); MCHC 33.7 g/dL (31.0-37.0); MCV 91.4 fL (80.0-100.0); Mean Platelet Volume 6.8; Monocytes # (A) 0.3 k/uL (0-1.0); Monocytes % (A) 6 %; Neutrophils # (A) 3.4 k/uL (1.3-7.7); Neutrophils % (A) 77 %; Platelet Count 217 k/uL (150-450); RBC 3.48 m/uL (4.30-5.90); RDW 14.7 % (11.5-15.5); WBC 4.5 k/uL (3.8-10.6)
[2018-02-02 20:30] LABS: Albumin 3.9 g/dL (3.5-5.0); Potassium 4.4 mmol/L (3.5-5.1); Total Bilirubin 0.4 mg/dL (0.2-1.3); Total Protein 6.3 g/dL (6.3-8.2)
[2018-02-02 20:40] LABS: Partial Thromboplastin Time 49.4 sec (22.0-30.0); Prothrombin Time 59.4 sec (9.0-12.0)
[2018-02-02 20:45] LABS: INR 6.5 (<1.2)
[2018-02-02 21:08] LABS: Appearance,Urine Clear (Clear); Bilirubin,Urine Negative (Negative); Blood,Urine Moderate (Negative); Color,Urine Light Yellow; Glucose,Urine (UA) Negative (Negative); Ketones,Urine Negative (Negative); Leukocyte Esterase,Urine Negative (Negative); Nitrite,Urine Negative (Negative); Protein,Urine 3+ (Negative); RBC,Urine 1 /hpf (0-5); Urobilinogen,Urine <2.0 mg/dL (<2.0); WBC,Urine 1 /hpf (0-5)
--- NOTE | 2018-02-02 21:11 | CT ---
EXAMINATION TYPE: CT abdomen pelvis wo con DATE OF EXAM: 02/02/2018 COMPARISON: HISTORY: Left sided pain. Post OP 2 weeks Left inguinal hernia repair CT DLP: 322.7 mGycm Automated exposure control for dose reduction was used. TECHNIQUE: Helical acquisition of images was performed from the lung bases through the pelvis. FINDINGS: VISUALIZED LOWER CHEST: Left and right coronary calcifications are noted, in addition to calcificatio ns at the dome of the right and left diaphragms. No other findings. LIVER/GB: No significant abnormality is appreciated. PANCREAS: No significant abnormality is seen. SPLEEN: No significant abnormality is seen. ADRENALS: No significant abnormality is seen. KIDNEYS: No significant abnormality is seen. FREE AIR: No free air is visualized RETROPERITONEAL ADENOPATHY: None visualized REPRODUCTIVE ORGANS: No significant abnormality is seen URINARY BLADDER: No significant abnormality is seen. PELVIC ADENOPATHY: None visualized. OSSEOUS STRUCTURES: No significant abnormality is seen. BOWEL: No significant abnormality is seen. OTHER: In the left lower quadrant anteriorly, just lateral to the left rectus abdominis and just deep to the anterior abdominal wall musculature, is a 3 cm mean diameter fluidlike collection with mild m oderately ill-defined margins. This finding measures approximately 20 Houn[address] in its CT atte nuation, and is compatible with evolving seroma if there is no clinical suspicion for abscess. IMPRESSION: 1. 3 CM MEAN DIAMETER LEFT LOWER QUADRANT FLUID LIKE COLLECTION ANTERIORLY. 2. INCIDENTAL LEFT AND RIGHT CORONARY CALCIFICATIONS NOTED. 3. INCIDENTAL PLEURAL CALCIFICATIONS, CONSISTENT WITH ASBESTOS-RELATED CHANGE.
[2018-02-03] MEDS ORDERED: SODIUM CHLORIDE 0.9% 1,000 ML BAG ONE (02:00)
[2018-02-03] MEDS ORDERED: HYDROcodone/APAP 5-325MG 1 EACH TAB PO PRN (05:02)
[2018-02-03] MEDS ORDERED: ACETAMINOPHEN TAB 325 MG TAB PO PRN (05:02)
[2018-02-03] MEDS ORDERED: NALOXONE 0.4 MG/ML 1 ML VIAL IV PRN (05:02)
[2018-02-03] MEDS ORDERED: PHYTONADIONE ORAL 5 MG/5 ML ORAL.SYRG PO STA (05:14)
--- NOTE | 2018-02-03 05:38 | P.HPIM ---
History of Present Illness Chief Complaint: Abdominal pain This is a 62-year-old male with history of COPD stage IV, atrial fibrillation on warfarin, who came to emergency department complaining of abdominal pain nausea and vomiting today. 2 weeks prior to this admission he underwent elective left inguinal hernia repair. There patient and his family that went well and he was recovering successfully. Today at work after lifting some heavy objects he started having first pain in the left lower quadrant area . Subsequently he felt that abdominal pain been situated more in the upper part of his stomach in the band like fashion. Pain was constant dull and he did not notice anything that makes pain worse or better. Also he developed significant nausea and vomited twice nonbilous, nonbloody fluid. As his symptoms continued and he came to emergency department. MRSA department blood work showed lipase of 5000. Liver enzymes and bilirubin were normal. He underwent CT of the abdomen that showed small seroma in the left lower quadrant and otherwise no intraabdominal abnormalities. Patient himself denied any fever or chills, changes in the bowel habits, blood in the stool or melena, chest pain or shortness of breath. He is on his usual home medications that include Coumadin for atrial fibrillation and methimazole for hyper thyroidism and some vitamin D and calcium supplementation. He denies any new medications or [id number] medications. He denies any drinking. He denies history of any similar problem in the past. Per he is planned for cholecystectomy in 2 weeks but they're not able to tell me the exact reason. Ultrasound of the abdomen done few months earlier in our institution did not take any gallstones or gallbladder abnormalities. Review of Systems Constitutional: Reports as per HPI Cardiovascular: Reports as per HPI Respiratory: Reports as per HPI Gastrointestinal: Reports as per HPI Genitourinary: Denies dysuria, Denies flank pain, Denies polyuria, Denies urinary frequency, Denies urinary hesitancy, Denies urinary retention Musculoskeletal: Denies morning stiffness, Denies muscle cramps Integumentary: Denies pruritus, Denies rash Neurological: Denies headaches Endocrine: Denies cold intolerance, Denies heat intolerance Past Medical History Past Medical History: Atrial Fibrillation, CVA/TIA Additional Past Medical History / Comment(s): HX OF POSSIBLE STROKE LEFT EYE, 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 ANEMIA (HX OF IRON INFUSIONS., GRAVES DISEASE., RECENT FALL ON ICE AND HAS LARGE BRUISE LEFT HIP. , HAVING NAUSEA, GAS AND BLOATING. History of Any Multi-Drug Resistant Organisms: None Reported Past Surgical History: Hernia Repair Additional Past Surgical History / Comment(s): lt kidney removed (CHILD) Past Anesthesia/Blood Transfusion Reactions: No Reported Reaction Past Psychological History: No Psychological Hx Reported Smoking Status: Never smoker Past Alcohol Use History: None Reported Past Drug Use History: None Reported - Past Family History Mother Family Medical History: No Reported History Medications and Allergies Home Medications Medication Instructions Recorded Confirmed Type PARoxetine [Paxil] 20 mg PO DAILY 05/02/14 01/14/18 History Warfarin [Coumadin] 2.5 mg PO DAILY 05/02/14 01/14/18 History Calcitriol 0.25 mcg PO DIRECTED 08/03/17 01/14/18 History Cholecalciferol (Vitamin D3) 2,000 unit PO DAILY 08/03/17 01/14/18 History [Vitamin D3] Methimazole [Tapazole] 20 mg PO BID 08/03/17 01/14/18 History HYDROcodone/APAP 5-325MG [[place] 1 tab PO Q4HR PRN 3 Days #18 tab 01/14/18 Rx 5-325] Allergies Allergy/AdvReac Type Severity Reaction Status Date / Time No Known Allergies Allergy Verified 02/02/18 19:15 Physical Exam Vitals: Vital Signs Temp Pulse Resp BP Pulse Ox 02/02/18 19:10 98.9 F 91 18 137/68 99 Intake and Output 02/02/18 02/02/18 02/03/18 14:59 22:59 06:59 Other: Weight 75.75 kg Gen.: Patient is awake alert oriented 3 no any apparent distress Vital signs are reviewed and they're stable Head and neck examination: Timoptic, normocephalic, anicteric sclerae, no facial asymmetry, moist mucous membranes, no neck vein pulsations, no neck masses, no supraclavicular masses Respiratory: Respiratory effort is normal, clear to auscultation bilaterally Cardiovascular: Irregularly irregular, S1-S2 Abdomen: Bowel sounds are present, soft, nontender, nondistended, no organomegaly appreciated, no Hunt's sign : No point tenderness Extremities: No peripheral edema noted Musculoskeletal: No joint clubbing or swelling Skin: No rashes appreciated Neurological: He is awake and alert, no focal deficits Results CBC & Chem 7: 02/02/18 19:54 02/02/18 19:54 Labs: Abnormal Lab Results - Last 24 Hours (Table) 02/02/18 02/02/18 02/02/18 Range/Units 19:54 19:54 19:54 RBC 3.48 L (4.30-5.90) m/uL Hgb 10.7 L (13.0-17.5) gm/dL Hct 31.8 L (39.0-53.0) % Lymphocytes # 0.5 L (1.0-4.8) k/uL PT 59.4 H (9.0-12.0) sec INR 6.5 H* (<1.2) APTT 49.4 H (22.0-30.0) sec Carbon Dioxide 20 L (22-30) mmol/L BUN 66 H (9-20) mg/dL Creatinine 4.00 H (0.66-1.25) mg/dL Glucose 101 H (74-99) mg/dL Amylase 618 H* (30-110) U/L Lipase 5015 H (23-300) U/L Urine Protein (Negative) Urine Blood (Negative) 02/02/18 Range/Units 20:35 RBC (4.30-5.90) m/uL Hgb (13.0-17.5) gm/dL Hct (39.0-53.0) % Lymphocytes # (1.0-4.8) k/uL PT (9.0-12.0) sec INR (<1.2) APTT (22.0-30.0) sec Carbon Dioxide (22-30) mmol/L BUN (9-20) mg/dL Creatinine (0.66-1.25) mg/dL Glucose (74-99) mg/dL Amylase (30-110) U/L Lipase (23-300) U/L Urine Protein 3+ H (Negative) Urine Blood Moderate H (Negative) CT scan - abdomen: report reviewed Thrombosis Risk Factor Assmnt - DVT/VTE Prophylaxis DVT/VTE Prophylaxis: Contraindicated - See note Assessment and Plan Plan: 1. Acute pancreatitis Reticulocyte enzymes significantly elevated even out of proportion for renal insufficiency Place nothing by mouth IV fluids, but in regard to his severe renal insufficiency closely monitor warm status Nothing by mouth Antiemetics and pain control Ultrasound of the right upper quadrant Lipid panel Gastroenterology consult Gen. surgery consult in view of previously planned cholecystectomy Home medications reviewed 2. Ckd stage IV Creatinine stable Receive significant amount of IV fluid to emergency department and we'll currently place and 75 mL/h with closely monitoring STATUS and urine output Strict I's and O's and daily weights 3. Atrial fibrillation Permanent with rate control Supratherapeutic INR No signs of bleeding Hold Coumadin We will give low-dose vitamin K 1 4. Anemia normocytic Stable 5. Hyperthyroidism On methimazole Again awaiting review and confirmation all home medications prior to continuation of this Surrogate decision maker is his He is a full code 2 or more midnights stay expected Time with Patient: Greater than 30
[2018-02-03] MEDS ORDERED: ONDANSETRON 4 MG/2 ML VIAL IVP PRN ×2 (06:25→20:09)
[2018-02-03] MEDS ORDERED: MORPHINE SULFATE 2 MG/ML SYRINGE IVP PRN (06:25)
[2018-02-03] MEDS: DEXTROSE 5%-0.9% NACL 1,000 ML IV SCH ×3 (08:45→19:12)
[2018-02-03 09:13] LABS: Albumin 3.1 g/dL (3.5-5.0); Calcium 8.5 mg/dL (8.4-10.2); Potassium 5.2 mmol/L (3.5-5.1); Total Bilirubin 0.4 mg/dL (0.2-1.3); Total Protein 5.2 g/dL (6.3-8.2)
[2018-02-03 09:15] LABS: Basophils % (A) 1 %; Eosinophils # (A) 0.2 k/uL (0-0.7); Eosinophils % (A) 6 %; HCT 30.3 % (39.0-53.0); HGB 9.9 gm/dL (13.0-17.5); Lymphocytes # (A) 1.1 k/uL (1.0-4.8); Lymphocytes % (A) 34 %; MCH 30.4 pg (25.0-35.0); MCHC 32.7 g/dL (31.0-37.0); MCV 93.1 fL (80.0-100.0); Mean Platelet Volume 7.3; Monocytes # (A) 0.3 k/uL (0-1.0); Monocytes % (A) 10 %; Neutrophils # (A) 1.5 k/uL (1.3-7.7); Neutrophils % (A) 47 %; Platelet Count 194 k/uL (150-450); RBC 3.25 m/uL (4.30-5.90); RDW 14.6 % (11.5-15.5); WBC 3.2 k/uL (3.8-10.6)
[2018-02-03] MEDS: PANTOPRAZOLE 40 MG TABLET PO SCH (09:21)
[2018-02-03 09:55] LABS: Cholesterol 185 mg/dL (<200); HDL Cholesterol 47 mg/dL (40-60); LDL Cholesterol,Calculated 116 mg/dL (0-99); Triglycerides 108 mg/dL (<150)
--- NOTE | 2018-02-03 11:09 | US ---
EXAMINATION TYPE: US abdomen limited DATE OF EXAM: 02/02/2018 COMPARISON: CT abdomen and pelvis earlier today CLINICAL HISTORY: Right upper quadrant pain. Pain EXAM MEASUREMENTS: Liver Length: 16.0 cm Gallbladder Wall: 0.29 cm CBD: 0.54 cm Right Kidney: Surgically absent cm Pancreas: Obscured by bowel gas Liver: wnl Gallbladder: No stones seen Evidence for sonographic Hunt's sign: No CBD: wnl Right Kidney: Surgically absent Pancreas is obscured by overlying bowel gas on the images saved but appeared within normal limits on recent CT. Visualized liver shows no focal mass or ductal dilatation. Right kidney noted surgically a bsent. IMPRESSION: No shadowing mobile gallstones or ultrasound evidence for acute cholecystitis.
[2018-02-03] MEDS ORDERED: SODIUM CHLORIDE 0.9% 2,000 ML IV ONE (12:15)
--- NOTE | 2018-02-03 12:51 | P.CONS ---
History of Present Illness - Reason for Consult Consult date: 02/03/18 Pancreatitis Requesting physician: Pepito Espinoza - History of Present Illness 62-year-old male status post recent laparoscopic inguinal hernia repair with a past medical history of COPD stage IV, A. fib maintained on warfarin, GERD, chronic kidney disease with nephrectomy admitted with midepigastrium left upper quadrant abdominal pain nausea vomiting 1 day. Admission white count 4.5. Hemoglobin 10.7. INR 6.5 received vitamin K. BUN 66. Creatinine 4.0. Presently BUN is 59. Creatinine 3.8. LFTs within normal limits. Lipase 5015. Amylase 618. He received 1 L fluid bolus current lipase is 6466. Amylase 767. Triglycerides 108. History of pancreatitis. No history of alcoholism. No changes in medications. Was experiencing increased reflux indigestion prior to onset of symptoms. Denies hematemesis hematochezia melena. CT abdomen and pelvis left lower quadrant fluidlike collection anteriorly possible seroma. Ultrasound abdomen no shadowing gallstones. CBD within normal limits. Liver within normal limits. EGD July 2017 for evaluation of GERD no evidence of peptic ulcer disease, duodenitis, hill grade 1 hiatal hernia. Review of Systems Constitutional: Denies fever, chills, sweats, weight gain, or loss. HEENT: Negative for migraines, blurred vision or loss, earaches, drainage, tinnitus, oral mucosal lesions, dysphagia, or odynophagia. Cardiac: Negative for chest pain, arrhythmias, or palpitation. Respiratory: Negative for shortness of breath, hemoptysis, cough, or sputum production. Gastrointestinal: See HPI for pertinent findings. Genitourinary: History of chronic kidney disease. Negative for hematuria, urgency, frequency, polyuria, dysuria, or penile discharge. Musculoskeletal: Negative for muscle aches, swelling, arthritis, and arthralgias. Neurologic: Negative for stroke or TIA. Endocrine: Negative for thyroid problems. Skin: Negative for rash or itching. 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 ANEMIA (HX OF IRON INFUSIONS., GRAVES DISEASE., RECENT FALL ON ICE AND HAS LARGE BRUISE LEFT HIP. , HAVING NAUSEA, GAS AND BLOATING. History of Any Multi-Drug Resistant Organisms: None Reported Past Surgical History: Hernia Repair Additional Past Surgical History / Comment(s): lt kidney removed (CHILD) Past Anesthesia/Blood Transfusion Reactions: No Reported Reaction Past Psychological History: No Psychological Hx Reported Smoking Status: Never smoker Past Alcohol Use History: None Reported Past Drug Use History: None Reported - Past Family History Mother Family Medical History: No Reported History Medications and Allergies Home Medications Medication Instructions Recorded Confirmed Type PARoxetine [Paxil] 20 mg PO DAILY 05/02/14 02/03/18 History Warfarin [Coumadin] 2.5 mg PO SUMOTUWETH 05/02/14 02/03/18 History Calcitriol 0.25 mcg PO DAILY 08/03/17 02/03/18 History Cholecalciferol (Vitamin D3) 4,000 unit PO DAILY 08/03/17 02/03/18 History [Vitamin D3] Methimazole [Tapazole] 10 mg PO DAILY 08/03/17 02/03/18 History Febuxostat [Uloric] 40 mg PO DAILY 02/03/18 02/03/18 History amLODIPine [Norvasc] 5 mg PO DAILY 02/03/18 02/03/18 History Allergies Allergy/AdvReac Type Severity Reaction Status Date / Time No Known Allergies Allergy Verified 02/02/18 19:15 Physical Exam Vitals: Vital Signs Temp Pulse Pulse Resp BP BP Pulse Ox 02/03/18 08:55 98.3 F 68 16 98/63 97 02/02/18 19:10 98.9 F 91 18 137/68 99 Intake and Output 02/02/18 02/03/18 02/03/18 22:59 06:59 14:59 Output Total 300 Balance -300 Output: Urine 300 Other: # Voids 1 Weight 75.75 kg 74.48 kg General appearance: The patient is alert, oriented, in no acute distress. HET: Head is normocephalic and atraumatic. Pupils are equal and reactive. Oropharynx is clear without lesions. Neck: Supple without lymphadenopathy. Trachea midline. Heart: S1 S2. Regular rate and rhythm. Lungs: No crackles or wheezes are heard. Abdomen: Soft, tenderness midepigastrium left upper quadrant, nondistended with bowel sounds. No peritoneal signs. No palpable organomegaly or masses. Extremities: Normal skin color and turgor. No cyanosis, rash, ulceration, clubbing, or edema. Radial and pedal pulses are 2/4 bilaterally. Neurological: No focal deficits. Strength and sensation are grossly intact. Results CBC & Chem 7: 02/03/18 08:26 02/03/18 08:26 Labs: Abnormal Lab Results - Last 24 Hours (Table) 02/02/18 02/02/18 02/02/18 Range/Units 19:54 19:54 19:54 WBC (3.8-10.6) k/uL RBC 3.48 L (4.30-5.90) m/uL Hgb 10.7 L (13.0-17.5) gm/dL Hct 31.8 L (39.0-53.0) % Lymphocytes # 0.5 L (1.0-4.8) k/uL PT 59.4 H (9.0-12.0) sec INR 6.5 H* (<1.2) APTT 49.4 H (22.0-30.0) sec Potassium (3.5-5.1) mmol/L Chloride (98-107) mmol/L Carbon Dioxide 20 L (22-30) mmol/L BUN 66 H (9-20) mg/dL Creatinine 4.00 H (0.66-1.25) mg/dL Glucose 101 H (74-99) mg/dL Total Protein (6.3-8.2) g/dL Albumin (3.5-5.0) g/dL LDL Cholesterol, Calc (0-99) mg/dL Amylase 618 H* (30-110) U/L Lipase 5015 H (23-300) U/L Urine Protein (Negative) Urine Blood (Negative) 02/02/18 02/03/18 02/03/18 Range/Units 20:35 08:26 08:26 WBC 3.2 L (3.8-10.6) k/uL RBC 3.25 L (4.30-5.90) m/uL Hgb 9.9 L (13.0-17.5) gm/dL Hct 30.3 L (39.0-53.0) % Lymphocytes # (1.0-4.8) k/uL PT (9.0-12.0) sec INR (<1.2) APTT (22.0-30.0) sec Potassium (3.5-5.1) mmol/L Chloride (98-107) mmol/L Carbon Dioxide (22-30) mmol/L BUN (9-20) mg/dL Creatinine (0.66-1.25) mg/dL Glucose (74-99) mg/dL Total Protein (6.3-8.2) g/dL Albumin (3.5-5.0) g/dL LDL Cholesterol, Calc 116 H (0-99) mg/dL Amylase (30-110) U/L Lipase (23-300) U/L Urine Protein 3+ H (Negative) Urine Blood Moderate H (Negative) 02/03/18 02/03/18 Range/Units 08:26 08:26 WBC (3.8-10.6) k/uL RBC (4.30-5.90) m/uL Hgb (13.0-17.5) gm/dL Hct (39.0-53.0) % Lymphocytes # (1.0-4.8) k/uL PT (9.0-12.0) sec INR (<1.2) APTT (22.0-30.0) sec Potassium 5.2 H (3.5-5.1) mmol/L Chloride 114 H (98-107) mmol/L Carbon Dioxide (22-30) mmol/L BUN 59 H (9-20) mg/dL Creatinine 3.84 H (0.66-1.25) mg/dL Glucose (74-99) mg/dL Total Protein 5.2 L (6.3-8.2) g/dL Albumin 3.1 L (3.5-5.0) g/dL LDL Cholesterol, Calc (0-99) mg/dL Amylase 767 H* (30-110) U/L Lipase 6466 H (23-300) U/L Urine Protein (Negative) Urine Blood (Negative) CT scan - abdomen: report reviewed (Dr. Nieves) US - abdomen: report reviewed (Dr. Nieves) Assessment and Plan (1) Acute pancreatitis Narrative/Plan: Etiology unclear acalculous radiographic imaging. History of GERD underlying peptic ulcer disease induced pancreatitis cannot be entirely excluded. Possible autoimmune. Current Visit: Yes Status: Acute Code(s): K85.90 - ACUTE PANCREATITIS WITHOUT NECROSIS OR INFECTION, UNSP SNOMED Code(s): 992186705 (2) History of gastroesophageal reflux (GERD) Current Visit: Yes Status: Acute Code(s): Z87.19 - PERSONAL HISTORY OF OTHER DISEASES OF THE DIGESTIVE SYSTEM SNOMED Code(s): 29203932961332 (3) History of atrial fibrillation Current Visit: Yes Status: Acute Code(s): Z86.79 - PERSONAL HISTORY OF OTHER DISEASES OF THE CIRCULATORY SYSTEM SNOMED Code(s): 505002583 (4) Warfarin-induced coagulopathy Current Visit: Yes Status: Acute Code(s): D68.32 - HEMORRHAGIC DISORD D/T EXTRINSIC CIRCULATING ANTICOAGULANTS; T45.515A - ADVERSE EFFECT OF ANTICOAGULANTS, INITIAL ENCOUNTER SNOMED Code(s): 94632273 (5) Elevated BUN Current Visit: Yes Status: Acute Code(s): R79.9 - ABNORMAL FINDING OF BLOOD CHEMISTRY, UNSPECIFIED SNOMED Code(s): 034330323 (6) Elevated serum creatinine Current Visit: Yes Status: Acute Code(s): R79.89 - OTHER SPECIFIED ABNORMAL FINDINGS OF BLOOD CHEMISTRY SNOMED Code(s): 378749938 Plan: 1. Aggressive IV hydration. Nothing by mouth except medications. Repeat pancreatic enzymes in a.m. We'll obtain CY subclass 1-4 IgG. Consideration for inpatient EGD rule out peptic ulcer disease once INR 1.5. Will follow closely with you. Thank you for this kind referral and the opportunity to participate in the care of your patient. This consultation was discussed with Dr. Nieves. The impression and plan of care have been directed as dictated.
[2018-02-03] MEDS ORDERED: MORPHINE SULFATE 4 MG/ML SYRINGE IVP PRN (20:07)
[2018-02-04] MEDS: DEXTROSE 5%-0.9% NACL 1,000 ML IV SCH ×2 (03:41→21:15)
[2018-02-04 07:10] LABS: Basophils % (A) 1 %; Eosinophils # (A) 0.3 k/uL (0-0.7); Eosinophils % (A) 9 %; HCT 30.7 % (39.0-53.0); HGB 9.6 gm/dL (13.0-17.5); Lymphocytes # (A) 1.3 k/uL (1.0-4.8); Lymphocytes % (A) 39 %; MCH 29.8 pg (25.0-35.0); MCHC 31.4 g/dL (31.0-37.0); MCV 94.8 fL (80.0-100.0); Monocytes # (A) 0.3 k/uL (0-1.0); Monocytes % (A) 9 %; Neutrophils # (A) 1.3 k/uL (1.3-7.7); Neutrophils % (A) 40 %; Platelet Count 224 k/uL (150-450); RBC 3.23 m/uL (4.30-5.90); RDW 14.8 % (11.5-15.5); WBC 3.3 k/uL (3.8-10.6)
--- NOTE | 2018-02-04 07:29 | P.GSCN ---
History of Present Illness Consult date: 02/03/18 Reason for Consult: pancreatitis History of present illness: this is a 62-year-old male admitted to the medical service. Patient was admitted with acute abdominal pain. He d having acute pancreatitis. His ultrasound shows no evidence of gallstones. Patient states his pain is improved. He had pain that was in the epigastric area which radiated to his back. 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 ANEMIA (HX OF IRON INFUSIONS., GRAVES DISEASE., RECENT FALL ON ICE AND HAS LARGE BRUISE LEFT HIP. , HAVING NAUSEA, GAS AND BLOATING. History of Any Multi-Drug Resistant Organisms: None Reported Past Surgical History: Hernia Repair Additional Past Surgical History / Comment(s): lt kidney removed (CHILD) Past Anesthesia/Blood Transfusion Reactions: No Reported Reaction Past Psychological History: No Psychological Hx Reported Smoking Status: Never smoker Past Alcohol Use History: None Reported Past Drug Use History: None Reported - Past Family History Mother Family Medical History: No Reported History Medications and Allergies Home Medications Medication Instructions Recorded Confirmed Type PARoxetine [Paxil] 20 mg PO DAILY 05/02/14 02/03/18 History Warfarin [Coumadin] 2.5 mg PO SUMOTUWETH 05/02/14 02/03/18 History Calcitriol 0.25 mcg PO DAILY 08/03/17 02/03/18 History Cholecalciferol (Vitamin D3) 4,000 unit PO DAILY 08/03/17 02/03/18 History [Vitamin D3] Methimazole [Tapazole] 10 mg PO DAILY 08/03/17 02/03/18 History Febuxostat [Uloric] 40 mg PO DAILY 02/03/18 02/03/18 History amLODIPine [Norvasc] 5 mg PO DAILY 02/03/18 02/03/18 History Allergies Allergy/AdvReac Type Severity Reaction Status Date / Time No Known Allergies Allergy Verified 02/02/18 19:15 Surgical - Exam Vital Signs Temp Pulse Resp BP Pulse Ox 98.9 F 91 18 137/68 99 02/02/18 19:10 02/02/18 19:10 02/02/18 19:10 02/02/18 19:10 02/02/18 19:10 - General well developed, no distress - Eyes PERRL - ENT normal pinna - Neck no masses - Respiratory normal expansion - Cardiovascular Rhythm: regular - Abdomen mild epigastric tenderness Abdomen: soft Results - Labs 02/04/18 06:18 02/03/18 08:26 Abnormal Lab Results - Last 24 Hours (Table) 02/03/18 02/03/18 02/03/18 Range/Units 08: 08:26 08:26 WBC 3.2 L (3.8-10.6) k/uL RBC 3.25 L (4.30-5.90) m/uL Hgb 9.9 L (13.0-17.5) gm/dL Hct 30.3 L (39.0-53.0) % Potassium 5.2 H (3.5-5.1) mmol/L Chloride 114 H (98-107) mmol/L BUN 59 H (9-20) mg/dL Creatinine 3.84 H (0.66-1.25) mg/dL Total Protein 5.2 L (6.3-8.2) g/dL Albumin 3.1 L (3.5-5.0) g/dL LDL Cholesterol, Calc 116 H (0-99) mg/dL Amylase (30-110) U/L Lipase 6466 H (23-300) U/L 02/03/18 02/04/18 Range/Units 08:26 06:18 WBC 3.3 L (3.8-10.6) k/uL RBC 3.23 L (4.30-5.90) m/uL Hgb 9.6 L (13.0-17.5) gm/dL Hct 30.7 L (39.0-53.0) % Potassium (3.5-5.1) mmol/L Chloride (98-107) mmol/L BUN (9-20) mg/dL Creatinine (0.66-1.25) mg/dL Total Protein (6.3-8.2) g/dL Albumin (3.5-5.0) g/dL LDL Cholesterol, Calc (0-99) mg/dL Amylase 767 H* (30-110) U/L Lipase (23-300) U/L Diabetes panel 02/03/18 02/03/18 Range/Units 08:26 08:26 Sodium 142 (137-145) mmol/L Potassium 5.2 H (3.5-5.1) mmol/L Chloride 114 H (98-107) mmol/L Carbon Dioxide 22 (22-30) mmol/L BUN 59 H (9-20) mg/dL Creatinine 3.84 H (0.66-1.25) mg/dL Glucose 86 (74-99) mg/dL Calcium 8.5 (8.4-10.2) mg/dL AST 23 (17-59) U/L ALT 24 (21-72) U/L Alkaline Phosphatase 58 (38-126) U/L Total Protein 5.2 L (6.3-8.2) g/dL Albumin 3.1 L (3.5-5.0) g/dL Triglycerides 108 (<150) mg/dL HDL Cholesterol 47 (40-60) mg/dL Calcium panel 02/03/18 Range/Units 08:26 Calcium 8.5 (8.4-10.2) mg/dL Albumin 3.1 L (3.5-5.0) g/dL Pituitary panel 02/03/18 Range/Units 08:26 Sodium 142 (137-145) mmol/L Potassium 5.2 H (3.5-5.1) mmol/L Chloride 114 H (98-107) mmol/L Carbon Dioxide 22 (22-30) mmol/L BUN 59 H (9-20) mg/dL Creatinine 3.84 H (0.66-1.25) mg/dL Glucose 86 (74-99) mg/dL Calcium 8.5 (8.4-10.2) mg/dL Adrenal panel 02/03/18 Range/Units 08:26 Sodium 142 (137-145) mmol/L Potassium 5.2 H (3.5-5.1) mmol/L Chloride 114 H (98-107) mmol/L Carbon Dioxide 22 (22-30) mmol/L BUN 59 H (9-20) mg/dL Creatinine 3.84 H (0.66-1.25) mg/dL Glucose 86 (74-99) mg/dL Calcium 8.5 (8.4-10.2) mg/dL Total Bilirubin 0.4 (0.2-1.3) mg/dL AST 23 (17-59) U/L ALT 24 (21-72) U/L Alkaline Phosphatase 58 (38-126) U/L Total Protein 5.2 L (6.3-8.2) g/dL Albumin 3.1 L (3.5-5.0) g/dL Assessment and Plan Assessment: acute peritonitis. No evidence of gallstones. Patient will be medically managed. There is no surgical intervention planned.
[2018-02-04 07:37] LABS: INR 6.6 (<1.2)
[2018-02-04] MEDS ORDERED: PHYTONADIONE 10 MG in SODIUM CHLORIDE 0.9% 50 ML IVPB STA (08:05)
[2018-02-04 08:10] LABS: Albumin 2.8 g/dL (3.5-5.0); Calcium 8.6 mg/dL (8.4-10.2); Potassium 4.8 mmol/L (3.5-5.1); Total Bilirubin 0.2 mg/dL (0.2-1.3); Total Protein 4.9 g/dL (6.3-8.2)
[2018-02-04] MEDS: PANTOPRAZOLE 40 MG TABLET PO SCH (09:29)
--- NOTE | 2018-02-04 11:40 | P.PN ---
Subjective Progress Note Date: 02/04/18 Principal diagnosis: Pancreatitis Feels better. Minimal abdominal pain. Pancreatic enzymes improving. INR still elevated 6.6. Triglycerides 108. IV vitamin K ordered. Objective - Vital Signs Vital signs: Vital Signs Temp 97.7 F 02/04/18 09:39 Pulse 97 02/04/18 09:39 Resp 18 02/04/18 09:39 BP 133/85 02/04/18 09:39 Pulse Ox 97 02/04/18 05:41 Intake & Output 02/03/18 02/04/18 02/04/18 18:59 06:59 18:59 Intake Total 1800 Output Total 300 Balance -300 1800 Weight 74.48 kg 66.633 kg Intake: Intake, IV Titration 1800 Amount Dextrose 5%-0.9% NaCl 1, 840 000 ml @ 120 mls/hr IV . Q8H20M [facility] Rx#:[id number] Sodium Chloride 0.9% 2, 960 000 ml @ 999 mls/hr IV . Q2H1M [facility] Rx#:[id number] Output: Urine 300 Other: # Voids 2 - Exam General appearance: The patient is alert, oriented, in no acute distress. HET: Head is normocephalic and atraumatic. Pupils are equal and reactive. Oropharynx is clear without lesions. Neck: Supple without lymphadenopathy. Trachea midline. Heart: S1 S2. Regular rate and rhythm. Lungs: No crackles or wheezes are heard. Abdomen: Soft, mild midepigastric tenderness, nondistended with bowel sounds. No peritoneal signs. No palpable organomegaly or masses. Extremities: Normal skin color and turgor. No cyanosis, rash, ulceration, clubbing, or edema. Radial and pedal pulses are 2/4 bilaterally. Neurological: No focal deficits. Strength and sensation are grossly intact. - Labs CBC & Chem 7: 02/04/18 06:18 02/04/18 06:18 Labs: Abnormal Lab Results - Last 24 Hours (Table) 02/03/18 02/03/18 02/04/18 Range/Units 08:26 08:26 06:18 WBC 3.3 L (3.8-10.6) k/uL RBC 3.23 L (4.30-5.90) m/uL Hgb 9.6 L (13.0-17.5) gm/dL Hct 30.7 L (39.0-53.0) % PT (9.0-12.0) sec INR (<1.2) Chloride (98-107) mmol/L Carbon Dioxide (22-30) mmol/L BUN (9-20) mg/dL Creatinine (0.66-1.25) mg/dL Total Protein (6.3-8.2) g/dL Albumin (3.5-5.0) g/dL LDL Cholesterol, Calc 116 H (0-99) mg/dL Amylase 767 H* (30-110) U/L Lipase (23-300) U/L 02/04/18 02/04/18 Range/Units 06:18 06:18 WBC (3.8-10.6) k/uL RBC (4.30-5.90) m/uL Hgb (13.0-17.5) gm/dL Hct (39.0-53.0) % PT 60.0 H (9.0-12.0) sec INR 6.6 H* (<1.2) Chloride 117 H (98-107) mmol/L Carbon Dioxide 20 L (22-30) mmol/L BUN 48 H (9-20) mg/dL Creatinine 3.70 H (0.66-1.25) mg/dL Total Protein 4.9 L (6.3-8.2) g/dL Albumin 2.8 L (3.5-5.0) g/dL LDL Cholesterol, Calc (0-99) mg/dL Amylase (30-110) U/L Lipase 1044 H (23-300) U/L Assessment and Plan (1) Acute pancreatitis Narrative/Plan: Etiology unclear acalculous radiographic imaging. History of GERD underlying peptic ulcer disease induced pancreatitis cannot be entirely excluded. Possible autoimmune. Current Visit: Yes Status: Acute Code(s): K85.90 - ACUTE PANCREATITIS WITHOUT NECROSIS OR INFECTION, UNSP SNOMED Code(s): 743034414 (2) History of gastroesophageal reflux (GERD) Current Visit: Yes Status: Acute Code(s): Z87.19 - PERSONAL HISTORY OF OTHER DISEASES OF THE DIGESTIVE SYSTEM SNOMED Code(s): 08440364778754 (3) History of atrial fibrillation Current Visit: Yes Status: Acute Code(s): Z86.79 - PERSONAL HISTORY OF OTHER DISEASES OF THE CIRCULATORY SYSTEM SNOMED Code(s): 266602442 (4) Warfarin-induced coagulopathy Current Visit: Yes Status: Acute Code(s): D68.32 - HEMORRHAGIC DISORD D/T EXTRINSIC CIRCULATING ANTICOAGULANTS; T45.515A - ADVERSE EFFECT OF ANTICOAGULANTS, INITIAL ENCOUNTER SNOMED Code(s): 86135054 (5) Elevated BUN Current Visit: Yes Status: Acute Code(s): R79.9 - ABNORMAL FINDING OF BLOOD CHEMISTRY, UNSPECIFIED SNOMED Code(s): 332339807 (6) Elevated serum creatinine Current Visit: Yes Status: Acute Code(s): R79.89 - OTHER SPECIFIED ABNORMAL FINDINGS OF BLOOD CHEMISTRY SNOMED Code(s): 905892762 Plan: 1. IV hydration. Clear liquid diet. Repeat pancreatic enzymes in a.m. CY subclass 1-4 IgG pending. Consideration for inpatient EGD rule out peptic ulcer disease once INR 1.5 pending clinical course. Will follow closely with you. Assessment and plan a care discussed with Dr. Nieves
--- NOTE | 2018-02-04 13:38 | P.NPCON ---
History of Present Illness - Reason for Consult chronic renal failure - History of Present Illness Reason for consultation: Acute kidney injury on chronic kidney disease History of present illness: Patient is a 62-year-old male seen in renal consultation for acute kidney injury on chronic kidney disease. Creatinine was 4 on admission and is down to 3.7 today. 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 Patient had a right-sided nephrectomy done due to trauma as a child. He was also noted to have nephrotic range proteinuria but a kidney biopsy wasn't done due to solitary kidney. His recent creatinine has been running in the range of 4-4.5. Patient presented to the hospital with abdominal pain and vomiting. Patient states the symptoms started on Wednesday after he had a bowel movement. He subsequently became quite weak and developed epigastric discomfort. He also had episodes of vomiting. He was noted to have acute pancreatitis and is currently maintained on normal saline at 120 mL an hour. He is now tolerating clear liquid diet. He admits to good urine output. Denies any active vomiting. No diarrhea. No hematuria or dysuria. Hemodynamically stable. His lipase level was over 5000 on admission and is down to 1044 today. Vital signs are stable. General: The patient appeared well nourished and normally developed. HEENT: Head exam is unremarkable. Neck is without jugular venous distension. LUNGS: Lungs are clear to auscultation and percussion. Breath sounds decreased. HEART: Rate and Rhythm are regular. First and second heart sounds normal. No murmurs, rubs or gallops. ABDOMEN: Abdominal exam reveals normal bowel sounds. Non-tender and non- distended. No evidence of peritonitis. EXTREMITITES: No clubbing, cyanosis, or edema. 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 ANEMIA (HX OF IRON INFUSIONS., GRAVES DISEASE., RECENT FALL ON ICE AND HAS LARGE BRUISE LEFT HIP. , HAVING NAUSEA, GAS AND BLOATING. History of Any Multi-Drug Resistant Organisms: None Reported Past Surgical History: Hernia Repair Additional Past Surgical History / Comment(s): lt kidney removed (CHILD) Past Anesthesia/Blood Transfusion Reactions: No Reported Reaction Past Psychological History: No Psychological Hx Reported Smoking Status: Never smoker Past Alcohol Use History: None Reported Past Drug Use History: None Reported - Past Family History Mother Family Medical History: No Reported History Medications and Allergies Home Medications Medication Instructions Recorded Confirmed Type PARoxetine [Paxil] 20 mg PO DAILY 05/02/14 02/03/18 History Warfarin [Coumadin] 2.5 mg PO SUMOTUWETH 05/02/14 02/03/18 History Calcitriol 0.25 mcg PO DAILY 08/03/17 02/03/18 History Cholecalciferol (Vitamin D3) 4,000 unit PO DAILY 08/03/17 02/03/18 History [Vitamin D3] Methimazole [Tapazole] 10 mg PO DAILY 08/03/17 02/03/18 History Febuxostat [Uloric] 40 mg PO DAILY 02/03/18 02/03/18 History amLODIPine [Norvasc] 5 mg PO DAILY 02/03/18 02/03/18 History Allergies Allergy/AdvReac Type Severity Reaction Status Date / Time No Known Allergies Allergy Verified 02/02/18 19:15 Physical Exam Vitals: Vital Signs Temp Pulse Pulse Resp BP Pulse Ox 02/04/18 09:39 97.7 F 95 97 18 133/85 02/04/18 05:41 97 02/04/18 00:00 97.8 F 68 16 145/69 97 02/03/18 20:32 98.3 F 70 16 137/80 99 02/03/18 14:49 98.3 F 63 16 118/72 94 L Intake and Output 02/03/18 02/04/18 02/04/18 22:59 06:59 14:59 Intake Total 960 840 Balance 960 840 Intake: Intake, IV Titration 960 840 Amount Dextrose 5%-0.9% NaCl 1, 840 000 ml @ 120 mls/hr IV . Q8H20M [facility] Rx#:[id number] Sodium Chloride 0.9% 2, 960 000 ml @ 999 mls/hr IV . Q2H1M [facility] Rx#:[id number] Other: # Voids 2 Weight 66.633 kg Results - Lab Results Most recent lab results Calcium 8.6 mg/dL (8.4-10.2) 02/04/18 06:18 02/04/18 06:18 02/04/18 06:18 Assessment and Plan Plan: Assessment: 1. Nonoliguric acute kidney injury mostly prerenal secondary to intravascular volume depletion from vomiting and pancreatitis. Improving with IV hydration. Creatinine was 4 on admission and is down to 3.7 today. 2. Chronic kidney disease stage IV/5 secondary to solitary left kidney and underlying glomerulonephritis. Kidney biopsy not done due to solitary kidney. 3. Acute pancreatitis. Now tolerating clear liquid diet. Lipase levels trending down. 4. 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 5. Coagulopathy status post vitamin K. INR 6.6 today. 6. Metabolic acidosis secondary to acute kidney injury and IV fluids. 7. Hypertension with chronic kidney disease. Controlled. Plan: I will decrease the rate of normal saline to 75 mL an hour. Add oral sodium bicarbonate 650 mg twice daily. Advance diet per surgical recommendations. No urgent need for renal replacement therapy at this time. Patient plans to do peritoneal dialysis down the road. Thank you for the consultation. I will continue to follow the patient with you during his hospital stay.
[2018-02-04] MEDS: SODIUM BICARBONATE TAB 650 MG TAB PO SCH ×2 (14:12→21:15)
--- NOTE | 2018-02-04 14:55 | P.PN ---
Subjective Progress Note Date: 02/04/18 Patient feeling much better today, denies any significant abdominal pain, appears to be tolerating clears well. Objective - Vital Signs Vital signs: Vital Signs Temp 97.7 F 02/04/18 09:39 Pulse 97 02/04/18 09:39 Resp 18 02/04/18 09:39 BP 133/85 02/04/18 09:39 Pulse Ox 97 02/04/18 05:41 Intake & Output 02/03/18 02/04/18 02/04/18 18:59 06:59 18:59 Intake Total 1800 Output Total 300 Balance -300 1800 Weight 74.48 kg 66.633 kg Intake: Intake, IV Titration 1800 Amount Dextrose 5%-0.9% NaCl 1, 840 000 ml @ 120 mls/hr IV . Q8H20M [facility] Rx#:[id number] Sodium Chloride 0.9% 2, 960 000 ml @ 999 mls/hr IV . Q2H1M [facility] Rx#:[id number] Output: Urine 300 Other: # Voids 2 - Exam Constitutional: No acute distress, conversant, pleasant Eyes: Anicteric sclerae, moist conjunctiva, no lid-lag, PERRLA ENMT: NC/AT,Oropharynx clear, no erythema, exudates Neck:Supple, FROM, no masses, or JVD, No carotid bruits; No thyromegaly Lungs: Clear to auscultation, Clear to percussion, Normal respiratory effort, no accessory muscle use Cardiovascular: Irregularly regular, No murmurs, gallops, or rubs no peripheral edema Abdominal: Soft Nontender, nom distended, no guarding, no rebound or rigidity, Normoactive bowel sounds No hepatomegaly, No splenomegaly, No palpable mass No abdominal wall hernia noted Skin: Normal temperature, tone, texture, turgor, No induration No subcutaneous nodules, No rash, lesions, No ulcers Extremities:No digital cyanosis No clubbing, Pedal pulses intact and symmetrical Radial pulses intact and symmetrical Normal gait and station, No calf tenderness Psychiatric: Alert and oriented to person, place and time, Appropriate affect Intact judgement Neuro: Muscles Strength 5/5 in all 4 extremities, Sensation to light touch grossly present throughout, Cranial nerves II-XII grossly intact. No focal sensory deficits - Labs CBC & Chem 7: 02/04/18 06:18 02/04/18 06:18 Labs: Abnormal Lab Results - Last 24 Hours (Table) 02/04/18 02/04/18 02/04/18 Range/Units 06:18 06:18 06:18 WBC 3.3 L (3.8-10.6) k/uL RBC 3.23 L (4.30-5.90) m/uL Hgb 9.6 L (13.0-17.5) gm/dL Hct 30.7 L (39.0-53.0) % PT 60.0 H (9.0-12.0) sec INR 6.6 H* (<1.2) Chloride 117 H (98-107) mmol/L Carbon Dioxide 20 L (22-30) mmol/L BUN 48 H (9-20) mg/dL Creatinine 3.70 H (0.66-1.25) mg/dL Total Protein 4.9 L (6.3-8.2) g/dL Albumin 2.8 L (3.5-5.0) g/dL Lipase 1044 H (23-300) U/L Assessment and Plan (1) Acute pancreatitis Narrative/Plan: * Diet advanced to clear liquids today * Continue current management lipase is trending down nicely from 6400 to 1044, continue IV fluids now at 75 mL and pain management * Appreciate GI recommendations working up possible underlying autoimmune cause versus peptic ulcer etiology * GI positive contemplating possibly EGD however patient has coagulopathic with elevated INR Current Visit: Yes Status: Acute Code(s): K85.90 - ACUTE PANCREATITIS WITHOUT NECROSIS OR INFECTION, UNSP SNOMED Code(s): 739890976 (2) Persistent atrial fibrillation Narrative/Plan: * Ventricular rate controlled * Coagulation held through to coagulopathy INR 6.6 Current Visit: Yes Status: Chronic Code(s): I48.1 - PERSISTENT ATRIAL FIBRILLATION SNOMED Code(s): 738249609 (3) Acute kidney injury superimposed on chronic kidney disease Narrative/Plan: * Acute kidney injury likely prerenal secondary to dehydration from vomiting * Creatinine trending down from 4-3.7 today * Chronic kidney disease stage IV/5 secondary to solitary left kidney and underlying glomerulonephritis. Kidney biopsy not done due to solitary kidney * Appreciate nephrology recommendations patient started on oral bicarb replacement Current Visit: Yes Status: Acute Code(s): N17.9 - ACUTE KIDNEY FAILURE, UNSPECIFIED; N18.9 - CHRONIC KIDNEY DISEASE, UNSPECIFIED SNOMED Code(s): 49685725 (4) Warfarin-induced coagulopathy Narrative/Plan: * Patient received 2.5 mg of vitamin K we'll repeat 10 mg IV today and recheck * Currently no signs of bleeding hemoglobin stable at 9.6 Current Visit: Yes Status: Acute Code(s): D68.32 - HEMORRHAGIC DISORD D/T EXTRINSIC CIRCULATING ANTICOAGULANTS; T45.515A - ADVERSE EFFECT OF ANTICOAGULANTS, INITIAL ENCOUNTER SNOMED Code(s): 33948449 Plan: Disposition Anticipate discharge in 2-3 days, we'll need to normalize his INR and advance his diet
--- NOTE | 2018-02-04 18:15 | P.PN ---
Progress Note - Text Progress Note Date: 02/04/18 Patient's dressing completed bed. He states he is less abdominal pain. His amylase has dropped into the 1000 range. On exam is lesser stable. His abdomen soft. His pain is much improved from yesterday. Resolving pancreatitis. Patient we continue to be treated conservatively. No surgical intervention is planned.
[2018-02-05 07:51] LABS: INR 1.4 (<1.2); Prothrombin Time 13.5 sec (9.0-12.0)
[2018-02-05] MEDS: PANTOPRAZOLE 40 MG TABLET PO SCH (08:15)
[2018-02-05] MEDS: SODIUM BICARBONATE TAB 650 MG TAB PO SCH ×2 (08:15→20:58)
[2018-02-05] MEDS: DEXTROSE 5%-0.9% NACL 1,000 ML IV SCH ×2 (08:22→21:00)
--- NOTE | 2018-02-05 11:13 | P.PN ---
Subjective Progress Note Date: 02/05/18 Principal diagnosis: Pancreatitis Patient doing well today. Lipase level decreased. Tolerating clears. Pain is much improved he states. Objective - Vital Signs Vital signs: Vital Signs Temp 97.9 F 02/05/18 01:02 Pulse 68 02/05/18 07:20 Resp 12 02/05/18 07:20 BP 137/84 02/05/18 07:20 Pulse Ox 97 02/05/18 07:20 Intake & Output 02/04/18 02/05/18 02/05/18 18:59 06:59 18:59 Intake Total 360 Balance 360 Weight 76.204 kg Intake: Oral 360 Other: Voiding Method Toilet - Exam Abdomen: Soft, nondistended, mild epigastric tenderness - Labs CBC & Chem 7: 02/04/18 06:18 02/04/18 06:18 Labs: Abnormal Lab Results - Last 24 Hours (Table) 02/05/18 02/05/18 Range/Units 06:34 06:34 PT 13.5 H (9.0-12.0) sec INR 1.4 H (<1.2) Lipase 489 H (23-300) U/L Assessment and Plan (1) Acute pancreatitis Narrative/Plan: Increase diet to full liquids. Recheck lipase tomorrow. Ambulate. Current Visit: Yes Status: Acute Code(s): K85.90 - ACUTE PANCREATITIS WITHOUT NECROSIS OR INFECTION, UNSP SNOMED Code(s): 388762051
[2018-02-05 11:55] LABS: IgG Subclass 3 70.1 mg/dL (11.0-85.0); IgG Subclass 4 57.9 mg/dL (3.0-175.0)
[2018-02-05 13:07] LABS: Basophils % (A) 0 %; Eosinophils # (A) 0.3 k/uL (0-0.7); Eosinophils % (A) 7 %; HGB 9.9 gm/dL (13.0-17.5); Lymphocytes # (A) 1.3 k/uL (1.0-4.8); Lymphocytes % (A) 34 %; MCV 97.1 fL (80.0-100.0); Mean Platelet Volume 7.6; Monocytes # (A) 0.3 k/uL (0-1.0); Monocytes % (A) 8 %; Neutrophils # (A) 1.7 k/uL (1.3-7.7); Neutrophils % (A) 47 %; Platelet Count 217 k/uL (150-450); RBC 3.19 m/uL (4.30-5.90); RDW 14.9 % (11.5-15.5); WBC 3.7 k/uL (3.8-10.6)
[2018-02-05 13:18] LABS: Calcium 8.8 mg/dL (8.4-10.2); Potassium 5.3 mmol/L (3.5-5.1)
--- NOTE | 2018-02-05 13:39 | P.PN ---
Subjective Progress Note Date: 02/05/18 Principal diagnosis: This is a 62-year-old patient known to us with chronic kidney disease secondary to solitary kidney secondary to childhood trauma and nephrectomy on the right)( as well as proteinuric glomerular neuropathy of unknown kind. He was admitted with acute pancreatitis. His improving with IV fluids. His creatinine is gone down from a peak of 4.2 to -3.4 but this morning. His abdominal pain is better but he did feel some fullness in the left flank where his solitary kidney is present. No nausea vomiting is able to eat and drink and ambulate without any problem. Objective - Vital Signs Vital signs: Vital Signs Temp 97.9 F 02/05/18 01:02 Pulse 68 02/05/18 07:20 Resp 12 02/05/18 07:20 BP 137/84 02/05/18 07:20 Pulse Ox 97 02/05/18 07:20 Intake & Output 02/04/18 02/05/18 02/05/18 18:59 06:59 18:59 Intake Total 360 Balance 360 Weight 76.204 kg Intake: Oral 360 Other: Voiding Method Toilet Examination is awake alert oriented comfortable HEENT exam no JVP lymphadenopathy thyromegaly Lungs are clear to auscultation good air entry bilaterally Heart sounds are unremarkable for any murmur rub gallop Abdomen soft nontender nondistended no masses felt Extremity exam reveals no edema Neurologically awake alert oriented - Labs CBC & Chem 7: 02/05/18 06:34 02/05/18 06:34 Labs: Abnormal Lab Results - Last 24 Hours (Table) 02/05/18 02/05/18 02/05/18 Range/Units 06:34 06:34 06:34 WBC 3.7 L (3.8-10.6) k/uL RBC 3.19 L (4.30-5.90) m/uL Hgb 9.9 L (13.0-17.5) gm/dL Hct 31.0 L (39.0-53.0) % PT 13.5 H (9.0-12.0) sec INR 1.4 H (<1.2) Potassium (3.5-5.1) mmol/L Chloride (98-107) mmol/L BUN (9-20) mg/dL Creatinine (0.66-1.25) mg/dL Lipase 489 H (23-300) U/L 02/05/18 Range/Units 06:34 WBC (3.8-10.6) k/uL RBC (4.30-5.90) m/uL Hgb (13.0-17.5) gm/dL Hct (39.0-53.0) % PT (9.0-12.0) sec INR (<1.2) Potassium 5.3 H (3.5-5.1) mmol/L Chloride 115 H (98-107) mmol/L BUN 37 H (9-20) mg/dL Creatinine 3.42 H (0.66-1.25) mg/dL Lipase (23-300) U/L Assessment and Plan Assessment: 1. Chronic kidney disease secondary to solitary kidney and proteinuria undetermined cause. 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 Baseline creatinine is 2.0 as of 04/16/2017, urinalysis shows 3+ proteinuria on 02/02/2018 2. Acute kidney injury secondary to pancreatitis improved creatinine down to 3.42. 3. Pancreatitis resolved, lipase came down from 5015-489 and resolution of pain and inability to eat 4. Anemia with hemoglobin of 9.9, his baseline hemoglobin is 12.5 as of 2016 Recommendation. 1. From a nephrological perspective he can be Discharged but only in a day or 2 to be followed up in the office. 2. Will need to further see if he needs a kidney biopsy based on his outpatient records. He follows up with Dr. Matthews
--- NOTE | 2018-02-05 16:36 | P.PN ---
Subjective Progress Note Date: 02/05/18 Patient feeling much better today, denies any significant abdominal pain, appears to be tolerating clears well. No acute events overnight, given vitamin K yesterday INR down to 1.4 today Objective - Vital Signs Vital signs: Vital Signs Temp 97.9 F 02/05/18 01:02 Pulse 87 02/05/18 15:45 Resp 18 02/05/18 15:45 BP 161/93 02/05/18 15:45 Pulse Ox 98 02/05/18 15:45 Intake & Output 02/04/18 02/05/18 02/05/18 18:59 06:59 18:59 Intake Total 360 Balance 360 Weight 76.204 kg Intake: Oral 360 Other: Voiding Method Toilet - Exam Constitutional: No acute distress, conversant, pleasant Eyes: Anicteric sclerae, moist conjunctiva, no lid-lag, PERRLA ENMT: NC/AT,Oropharynx clear, no erythema, exudates Neck:Supple, FROM, no masses, or JVD, No carotid bruits; No thyromegaly Lungs: Clear to auscultation, Clear to percussion, Normal respiratory effort, no accessory muscle use Cardiovascular: Irregularly regular, No murmurs, gallops, or rubs no peripheral edema Abdominal: Soft Nontender, nom distended, no guarding, no rebound or rigidity, Normoactive bowel sounds No hepatomegaly, No splenomegaly, No palpable mass No abdominal wall hernia noted Skin: Normal temperature, tone, texture, turgor, No induration No subcutaneous nodules, No rash, lesions, No ulcers Extremities:No digital cyanosis No clubbing, Pedal pulses intact and symmetrical Radial pulses intact and symmetrical Normal gait and station, No calf tenderness Psychiatric: Alert and oriented to person, place and time, Appropriate affect Intact judgement Neuro: Muscles Strength 5/5 in all 4 extremities, Sensation to light touch grossly present throughout, Cranial nerves II-XII grossly intact. No focal sensory deficits - Labs CBC & Chem 7: 02/05/18 06:34 02/05/18 06:34 Labs: Abnormal Lab Results - Last 24 Hours (Table) 02/05/18 02/05/18 02/05/18 Range/Units 06:34 06:34 06:34 WBC 3.7 L (3.8-10.6) k/uL RBC 3.19 L (4.30-5.90) m/uL Hgb 9.9 L (13.0-17.5) gm/dL Hct 31.0 L (39.0-53.0) % PT 13.5 H (9.0-12.0) sec INR 1.4 H (<1.2) Potassium (3.5-5.1) mmol/L Chloride (98-107) mmol/L BUN (9-20) mg/dL Creatinine (0.66-1.25) mg/dL Lipase 489 H (23-300) U/L 02/05/18 Range/Units 06:34 WBC (3.8-10.6) k/uL RBC (4.30-5.90) m/uL Hgb (13.0-17.5) gm/dL Hct (39.0-53.0) % PT (9.0-12.0) sec INR (<1.2) Potassium 5.3 H (3.5-5.1) mmol/L Chloride 115 H (98-107) mmol/L BUN 37 H (9-20) mg/dL Creatinine 3.42 H (0.66-1.25) mg/dL Lipase (23-300) U/L Assessment and Plan (1) Acute pancreatitis Narrative/Plan: * Diet advanced to clear liquids today * Continue current management lipase is trending down nicely from 6400 to 1044 to 489, continue IV fluids now at 75 mL and pain management * Appreciate GI recommendations working up possible underlying autoimmune cause versus peptic ulcer etiology * GI planning to do EGD per their last note, INR now within range at 1.4 Current Visit: Yes Status: Acute Code(s): K85.90 - ACUTE PANCREATITIS WITHOUT NECROSIS OR INFECTION, UNSP SNOMED Code(s): 557544755 (2) Persistent atrial fibrillation Narrative/Plan: * Ventricular rate controlled * Coagulation held due to GI planning EGD Current Visit: Yes Status: Chronic Code(s): I48.1 - PERSISTENT ATRIAL FIBRILLATION SNOMED Code(s): 124610557 (3) Acute kidney injury superimposed on chronic kidney disease Narrative/Plan: * Acute kidney injury likely prerenal secondary to dehydration from vomiting * Creatinine trending down from 4-3.4 today * Chronic kidney disease stage IV/5 secondary to solitary left kidney and underlying glomerulonephritis. Kidney biopsy not done due to solitary kidney * Appreciate nephrology recommendations patient started on oral bicarb replacement Current Visit: Yes Status: Acute Code(s): N17.9 - ACUTE KIDNEY FAILURE, UNSPECIFIED; N18.9 - CHRONIC KIDNEY DISEASE, UNSPECIFIED SNOMED Code(s): 70839331 (4) Warfarin-induced coagulopathy Narrative/Plan: * Now resolved INR down from 6.6-1.4 after 10 mg IV vitamin K * Currently no signs of bleeding hemoglobin stable at 9.6 Current Visit: Yes Status: Resolved Code(s): D68.32 - HEMORRHAGIC DISORD D/ T EXTRINSIC CIRCULATING ANTICOAGULANTS; T45.515A - ADVERSE EFFECT OF ANTICOAGULANTS, INITIAL ENCOUNTER SNOMED Code(s): 52920604
--- NOTE | 2018-02-05 16:59 | PN ---
PROGRESS NOTE The patient is a 62-white male admitted to the hospital with acute pancreatitis. He presented with abdominal pain associated with nausea, vomiting. He is doing much better today. He is on a clear liquid diet, tolerating well. PHYSICAL EXAMINATION: He appears comfortable. No apparent distress. Vital signs are stable. Blood pressure is 136/82, pulse rate 69, temperature 98.8. HEENT examination unremarkable. Conjunctivae pink. Sclerae anicteric. Oral cavity, no lesions. Neck: No JVD or lymph node enlargement. Chest was clear to auscultation. HEART: Regular rate and rhythm. . No organomegaly. EXTREMITIES: No pedal edema. SKIN: No rashes. NEUROLOGIC: Alert and oriented x3. No focal deficits. LAB: WBC 8.7, hemoglobin 9.9, platelets are normal. INR is 1.4, yesterday it was 6.6. Lipase is down to 49. IMPRESSION: Acute pancreatitis of unclear etiology. Lipase is gradually improving. Serum transaminases are within normal limits. CT of the abdomen done at the time of admission the hospital 3 days ago showed mild pancreatitis. Gallbladder appeared normal. RECOMMENDATION: His amylase and lipase are improving. Diet can be advanced as tolerated. Continue with current medication. The patient was advised to follow up in 2-3 weeks following discharge from the hospital for further workup on an outpatient basis. MMODL / IJN: [id number] /
[2018-02-06] MEDS: PANTOPRAZOLE 40 MG TABLET PO SCH (07:04)
[2018-02-06] MEDS: DEXTROSE 5%-0.9% NACL 1,000 ML IV SCH (07:04)
[2018-02-06 07:07] VITALS: BP 153/93; PULSE 62; RESP 12; TEMP 97.7
[2018-02-06 07:29] LABS: Basophils % (A) 1 %; Eosinophils # (A) 0.2 k/uL (0-0.7); Eosinophils % (A) 7 %; Lymphocytes # (A) 1.1 k/uL (1.0-4.8); Lymphocytes % (A) 35 %; MCH 30.5 pg (25.0-35.0); MCHC 32.3 g/dL (31.0-37.0); MCV 94.4 fL (80.0-100.0); Mean Platelet Volume 6.8; Monocytes # (A) 0.2 k/uL (0-1.0); Monocytes % (A) 6 %; Neutrophils # (A) 1.6 k/uL (1.3-7.7); Neutrophils % (A) 49 %; Platelet Count 250 k/uL (150-450); RBC 3.28 m/uL (4.30-5.90); RDW 14.6 % (11.5-15.5); WBC 3.3 k/uL (3.8-10.6)
[2018-02-06 07:31] LABS: Calcium 9.2 mg/dL (8.4-10.2); Potassium 5.1 mmol/L (3.5-5.1)
[2018-02-06 07:32] LABS: INR 1.3 (<1.2); Prothrombin Time 12.5 sec (9.0-12.0)
[2018-02-06] MEDS: SODIUM BICARBONATE TAB 650 MG TAB PO SCH (09:09)
--- NOTE | 2018-02-06 10:59 | P.PN ---
Subjective Progress Note Date: 02/06/18 Principal diagnosis: Pancreatitis Patient doing well today. Denies abdominal pain. White based on 425. Tolerating diet. Objective - Vital Signs Vital signs: Vital Signs Temp 97.7 F 02/06/18 07:06 Pulse 62 02/06/18 07:06 Resp 12 02/06/18 07:06 BP 153/93 02/06/18 07:06 Pulse Ox 99 02/06/18 07:06 Intake & Output 02/05/18 02/06/18 02/06/18 18:59 06:59 18:59 Output Total 1700 Balance -1700 Weight 75.88 kg Output: Urine 1700 Other: Voiding Method Toilet - Exam Abdomen: Soft, nondistended, mild epigastric tenderness - Labs CBC & Chem 7: 02/06/18 06:34 02/06/18 06:34 Labs: Abnormal Lab Results - Last 24 Hours (Table) 02/05/18 02/05/18 02/06/18 Range/Units 06:34 06:34 06:34 WBC 3.7 L (3.8-10.6) k/uL RBC 3.19 L (4.30-5.90) m/uL Hgb 9.9 L (13.0-17.5) gm/dL Hct 31.0 L (39.0-53.0) % PT 12.5 H (9.0-12.0) sec INR 1.3 H (<1.2) Potassium 5.3 H (3.5-5.1) mmol/L Chloride 115 H (98-107) mmol/L BUN 37 H (9-20) mg/dL Creatinine 3.42 H (0.66-1.25) mg/dL Lipase (23-300) U/L 02/06/18 02/06/18 Range/Units 06:34 06:34 WBC 3.3 L (3.8-10.6) k/uL RBC 3.28 L (4.30-5.90) m/uL Hgb 10.0 L (13.0-17.5) gm/dL Hct 31.0 L (39.0-53.0) % PT (9.0-12.0) sec INR (<1.2) Potassium (3.5-5.1) mmol/L Chloride 115 H (98-107) mmol/L BUN 30 H (9-20) mg/dL Creatinine 3.30 H (0.66-1.25) mg/dL Lipase 425 H (23-300) U/L Assessment and Plan (1) Acute pancreatitis Narrative/Plan: Continue advancing diet. Ambulate. Possible discharge. Current Visit: Yes Status: Acute Code(s): K85.90 - ACUTE PANCREATITIS WITHOUT NECROSIS OR INFECTION, UNSP SNOMED Code(s): 004646731
--- NOTE | 2018-02-06 11:29 | P.PN ---
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 He was admitted with acute pancreatitis. His improving with IV fluids. His creatinine is gone down from a peak of 4.2 to -3.4 but this morning. His abdominal pain is resolved. Eating well. No comlaints at all. No nausea vomiting is able to eat and drink and ambulate without any problem. Objective - Vital Signs Vital signs: Vital Signs Temp 97.7 F 02/06/18 07:06 Pulse 62 02/06/18 07:06 Resp 12 02/06/18 07:06 BP 153/93 02/06/18 07:06 Pulse Ox 99 02/06/18 07:06 Intake & Output 02/05/18 02/06/18 02/06/18 18:59 06:59 18:59 Output Total 1700 Balance -1700 Weight 75.88 kg Output: Urine 1700 Other: Voiding Method Toilet Examination is awake alert oriented comfortable. HEENT exam no JVP lymphadenopathy thyromegaly neck is supple no facial asymmetry Lungs are clear to auscultation with good air entry bilaterally Heart sounds are unremarkable no murmur rub gallop Abdomen soft nontender nondistended Extremity exam was no edema Neurologically awake alert oriented comfortable - Labs CBC & Chem 7: 02/06/18 06:34 02/06/18 06:34 Labs: Abnormal Lab Results - Last 24 Hours (Table) 02/05/18 02/05/18 02/06/18 Range/Units 06:34 06:34 06:34 WBC 3.7 L (3.8-10.6) k/uL RBC 3.19 L (4.30-5.90) m/uL Hgb 9.9 L (13.0-17.5) gm/dL Hct 31.0 L (39.0-53.0) % PT 12.5 H (9.0-12.0) sec INR 1.3 H (<1.2) Potassium 5.3 H (3.5-5.1) mmol/L Chloride 115 H (98-107) mmol/L BUN 37 H (9-20) mg/dL Creatinine 3.42 H (0.66-1.25) mg/dL Lipase (23-300) U/L 02/06/18 02/06/18 Range/Units 06:34 06:34 WBC 3.3 L (3.8-10.6) k/uL RBC 3.28 L (4.30-5.90) m/uL Hgb 10.0 L (13.0-17.5) gm/dL Hct 31.0 L (39.0-53.0) % PT (9.0-12.0) sec INR (<1.2) Potassium (3.5-5.1) mmol/L Chloride 115 H (98-107) mmol/L BUN 30 H (9-20) mg/dL Creatinine 3.30 H (0.66-1.25) mg/dL Lipase 425 H (23-300) U/L Assessment and Plan Assessment: 1. Chronic kidney disease secondary to solitary kidney and proteinuria undetermined cause. 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 Baseline creatinine is 2.0 as of 04/16/2017, urinalysis shows 3+ proteinuria on 02/02/2018 2. Acute kidney injury secondary to pancreatitis improved creatinine down to 3.42.> 3.3 3. Pancreatitis resolved, lipase came down from [id number] > 425 and resolution of pain and ability to eat 4. Anemia with hemoglobin of 10, his baseline hemoglobin is 12.5 as of 2016 Recommendation. 1. From a nephrological perspective he can be Discharged but only in a day or 2 to be followed up in the office. 2. Will need to further see if he needs a kidney biopsy based on his outpatient records. He follows up with Dr. Matthews
--- NOTE | 2018-02-06 13:21 | P.DS ---
Providers Date of admission: 02/02/18 23:21 Attending physician: Pepito Espinoza MD Consults: 02/03/18 05:05 Consult Physician Routine Consulting Provider: Letitia Nieves Consult Reason/Comments: abdominal pain, pancreatitis Do you want consulting provider notified?: Yes 02/03/18 05:07 Consult Physician Routine Consulting Provider: Jj Haro Consult Reason/Comments: abdominal pain Do you want consulting provider notified?: Yes 02/04/18 11:14 Consult Physician Routine Consulting Provider: Alisia Matthews Consult Reason/Comments: Kidney Failure Do you want consulting provider notified?: Yes Primary care physician: Radha Emanuel - Nelsy Diagnosis(es) (1) Acute pancreatitis Current Visit: Yes Status: Acute (2) Acute kidney injury superimposed on chronic kidney disease Current Visit: Yes Status: Acute (3) Warfarin-induced coagulopathy Current Visit: Yes Status: Resolved (4) Anemia in chronic kidney disease (CKD) Current Visit: Yes Status: Acute (5) Persistent atrial fibrillation Current Visit: Yes Status: Chronic Hospital Course: The patient is a 62-year-old male with a past medical history of stage IV chronic kidney disease who presented to ER with abdominal pain was admitted for acute pancreatitis with a significantly elevated Serum lipase at 6466, the patient was made nothing by mouth started on IV fluids and started on morphine IV for pain. Patient presented with a creatinine of 4 and was noted to be hyperkalemic at 5.2. Nephrology was consulted and they recommended ongoing hydration and subsequently also started the patient on sodium bicarb due to his metabolic acidosis. CT abdomen and pelvis on admission only showed mild pancreatitis with normal gallbladder and subsequent right upper quadrant ultrasound showed no shadowing or any findings suggestive of acute cholecystitis. With treatment the patient's pancreatic head is gradually resolved and his diet was advanced from clear liquids eventually to a renal diet. GI was consulted for further recommendations and was planning to perform an EGD however they were unable to proceed with any endoscopic procedures given the patient's warfarin-induced coagulopathy when he presented supratherapeutically with an INR of 6.5. The patient was given, repeated doses of vitamin K and his INR decreased to 1.4, however by then the patient's pancreatitis had resolved. Subsequently GI recommended close follow-up with the patient in the outpatient clinic in 3 weeks. Patient was subsequently discharged home in stable condition and told to reinitiate his home Coumadin regimen. Patient was told to follow-up with in the next few days. This discharge process took approximately 35 minutes prescription of discharge Sodium bicarbonate 650 mg by mouth twice a day #60 Patient Condition at Discharge: Stable Plan - Discharge Summary New Discharge Prescriptions: New Sodium Bicarbonate Tab 650 mg PO BID #60 tab Continue PARoxetine [Paxil] 20 mg PO DAILY Warfarin [Coumadin] 2.5 mg PO SUMOTUWETH Methimazole [Tapazole] 10 mg PO DAILY Cholecalciferol (Vitamin D3) [Vitamin D3] 4,000 unit PO DAILY amLODIPine [Norvasc] 5 mg PO DAILY Febuxostat [Uloric] 40 mg PO DAILY No Action Calcitriol 0.25 mcg PO DAILY Discharge Medication List PARoxetine [Paxil] 20 mg PO DAILY 05/02/14 [History] Warfarin [Coumadin] 2.5 mg PO SUMOTUWETH 05/02/14 [History] Calcitriol 0.25 mcg PO DAILY 08/03/17 [History] Cholecalciferol (Vitamin D3) [Vitamin D3] 4,000 unit PO DAILY 08/03/17 [History] Methimazole [Tapazole] 10 mg PO DAILY 08/03/17 [History] Febuxostat [Uloric] 40 mg PO DAILY 02/03/18 [History] amLODIPine [Norvasc] 5 mg PO DAILY 02/03/18 [History] Sodium Bicarbonate Tab 650 mg PO BID #60 tab 02/06/18 [Rx] Follow up Appointment(s)/Referral(s): Radha Emanuel MD [Primary Care Provider] - 1-2 days
[2018-02-06] MEDS ORDERED: WARFARIN 2.5 MG TAB PO ONE (18:00)
--- NOTE | 2018-02-06 19:18 | PN ---
PROGRESS NOTE The patient is a 62-year-old pleasant white male admitted to the hospital with acute pancreatitis first episode. He is doing much better. Abdominal pain is resolving. He has some nausea but no emesis. He has been on a clear liquid diet, tolerating well. He denies any fever, chills, or night sweats. PHYSICAL EXAMINATION: He appears comfortable. No apparent distress. Vital signs stable. Blood pressure 140/91, pulse rate 80, temperature 98.8. HEENT examination unremarkable. Conjunctivae pink. Sclerae anicteric. Neck no jugular venous distention or lymph node enlargement. Chest was clear to auscultation. HEART: Regular rate and rhythm. ABDOMEN: Soft. Bowel sounds are positive. No organomegaly. EXTREMITIES: No pedal edema. Skin no rashes. NEUROLOGICAL: Alert and oriented times three. No focal deficits. LABORATORY DATA: WBC 3.3, hemoglobin 10, platelets are normal. INR is 1.3. Lipase is down to 425. IMPRESSION: Acute pancreatitis, 1st episode, resolving. Serum transaminases are within limits. No history of alcohol use. Patient on a clear liquid diet, tolerating well. The symptoms have resolved. RECOMMENDATIONS: 1. Advance diet. 2. The patient can be discharged home today with outpatient follow up in 2-3 weeks for further workup of pancreatitis. Thank you for this consultation. MMODL / IJN: [id number] /
== END 2018-02-06 14:41 | disposition home or self-care (01) | DRG 439 ==
LOC: EC 19:06 → 3SUR 23:21
PROVIDERS: ADMIT Hospitalist; ATTEND Hospitalist
DX: K85.90 Acute pancreatitis without necrosis or infection, unspecified (principal); I48.1 Persistent atrial fibrillation; N17.9 Acute kidney failure, unspecified; N18.5 Chronic kidney disease, stage 5; E87.2 Acidosis; J44.9 Chronic obstructive pulmonary disease, unspecified; E05.90 Thyrotoxicosis, unspecified without thyrotoxic crisis or storm; T45.515A Adverse effect of anticoagulants, initial encounter; R79.1 Abnormal coagulation profile; I12.9 Hypertensive chronic kidney disease with stage 1 through stage 4 chronic kidney disease, or unspecified chronic kidney disease; D63.1 Anemia in chronic kidney disease; E87.5 Hyperkalemia; E86.0 Dehydration; K21.9 Gastro-esophageal reflux disease without esophagitis; Z98.890 Other specified postprocedural states; Z79.01 Long term (current) use of anticoagulants; Z79.899 Other long term (current) drug therapy; Z90.5 Acquired absence of kidney; Z86.73 Personal history of transient ischemic attack (TIA), and cerebral infarction without residual deficits; X50.0XXA Overexertion from strenuous movement or load, initial encounter
CPT/HCPCS: 36415; 74176; 76705; 80048; 80053; 80061; 81001; 82150; 82787; 83605; 83690; 85025; 85610; 85730; 86038; 93005; 96361; 96374; 96375; 99285

== ENCOUNTER 2018-04-15 09:20 | Day surgery (SDC) | payer BC ==
[2018-04-12 08:23] VITALS: BMI 23.0
--- NOTE | 2018-04-15 08:43 | P.GSHP ---
History of Present Illness H&P Date: 04/15/18 CHIEF COMPLAINT: Gallstones and pancreatitis HISTORY OF PRESENT ILLNESS: The patient is a 62-year-old male who presents with history of epigastric including right upper quadrant abdominal pain. He underwent diagnostic studies for the gallbladder consistent with gallstones. Now he presents for surgical intervention. PAST MEDICAL HISTORY: Please see list PAST SURGICAL HISTORY: Please see list MEDICATIONS: Please see list ALLERGIES: Denies. SOCIAL HISTORY: No illicit drug use or recent tobacco use FAMILY HISTORY: Pertinent for gallbladder disease REVIEW OF ORGAN SYSTEMS: CONSTITUTIONAL: No reports of fevers or chills. HEENT: Denies any troubles with the vision or hearing. RESPIRATORY: No recent pneumonias. CARDIOVASCULAR: Denies chest pain or palpitations GI: No blood in stools or constipation. MUSCULOSKELETAL: Has occasional joint pain including back pain. GENITOURINARY: No active blood in urine. History of renal impairment HEMATOLOGIC: No personal or family history of DVTs or pulmonary emboli. SKIN: No skin cancer. PHYSICAL EXAM: VITAL SIGNS: Afebrile vital signs stable GENERAL: Well-developed pleasant in no acute distress. HEENT: No scleral icterus. Extraocular movements grossly intact. Moist buccal mucosa. NECK: Supple without lymphadenopathy. CHEST: Unlabored respirations. Equal bilateral excursions. CARDIOVASCULAR: Regular rate regular rhythm rhythm. Distal 2+ pulses. ABDOMEN: Soft, nondistended. Tender along the epigastrium and right upper quadrant. MUSCULOSKELETAL: No clubbing, cyanosis, or edema. NEURO: Cranial nerves II to XII within normal limits. No focal or lateralizing signs. PSYCH: Alert and oriented to person, place and time. SKIN: Well-perfused good skin turgor. ASSESSMENT: 1. Epigastric and right upper quadrant abdominal pain 2. Symptomatic gallstones. 3. Stage III renal impairment PLAN: 1. Will need a robotic cholecystectomy possible open. Benefits and risks were described. 2. Heparin for DVT prophylaxis 5000 units. 3. Antibiotic prophylaxis. Past Medical History Past Medical History: Atrial Fibrillation, Blood Disorder, CVA/TIA, Dialysis, Renal Disease, Thyroid Disorder Additional Past Medical History / Comment(s): FIRST HEMODIALYSIS TREATMENT TODAY - THEN ON 04/14/18. ON LIST FOR KIDNEY TRANSPLANT, AFIB SINCE 2011, HX OF POSSIBLE STROKE LEFT EYE, 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 ANEMIA (HX OF IRON INFUSIONS., GRAVES DISEASE. History of Any Multi-Drug Resistant Organisms: None Reported Past Surgical History: Hernia Repair Additional Past Surgical History / Comment(s): lt kidney removed (CHILD), HEMODIALYSIS port placed 04/11/18, COLONOSCOPY Past Anesthesia/Blood Transfusion Reactions: No Reported Reaction Smoking Status: Never smoker - Past Family History Mother Family Medical History: No Reported History Medications and Allergies Home Medications Medication Instructions Recorded Confirmed Type PARoxetine [Paxil] 20 mg PO DAILY 05/02/14 04/12/18 History Warfarin [Coumadin] 2.5 mg PO SUMOTUWETH 05/02/14 04/12/18 History Calcitriol 0.25 mcg PO DAILY 08/03/17 04/12/18 History Cholecalciferol (Vitamin D3) 4,000 unit PO DAILY 08/03/17 04/12/18 History [Vitamin D3] Methimazole [Tapazole] 10 mg PO BID 08/03/17 04/12/18 History Febuxostat [Uloric] 40 mg PO DAILY 02/03/18 04/12/18 History amLODIPine [Norvasc] 5 mg PO DAILY 02/03/18 04/12/18 History Allergies Allergy/AdvReac Type Severity Reaction Status Date / Time No Known Allergies Allergy Verified 04/12/18 08:16
[~2018-04-15 09:20] MED LIST changes: -BUPIVACAINE (PF) 0.5% 30 ML VIAL SQ ONE; -GLYCOPYRROLATE 0.2 MG/ML 2 ML VIAL ONE; -HEPARIN SODIUM,PORCINE 5,000 UNIT/ML 1 ML VIAL SQ STA; -HYDROcodone/APAP 5-325MG 1 EACH TAB PO ONE; +INDOCYANINE GREEN 25 MG VIAL IV STA; -KETOROLAC 30 MG/ML 1 ML VIAL ONE; -LABETALOL 5 MG/ML VIAL MDV ONE; -LACTATED RINGERS 1,000 ML IV ONE; +LACTATED RINGERS 1,000 ML IV SCH; -LIDOCAINE 1% 20 ML VIAL (10MG/ML) FOR IV START INTRADERMA PRN; -LIDOCAINE 1% INJ 10MG/ML (20 ML MDV) ONE; -MIDAZOLAM 2 MG/2 ML VIAL ONE; -NEOSTIGMINE 1 MG/ML 10 ML VIAL ONE; -PROPOFOL 10 MG/ML 20 ML VIAL IV ONE; -ROCURONIUM BROMIDE 10 MG/ML 10 ML VIAL IV ONE; -TAMSULOSIN 0.4 MG CAP.ER.24H PO STA; -ceFAZolin IN SWFI 2 GM/20 ML SYRINGE IVP ONE; -fentaNYL (PF) 50 MCG/ML 2 ML AMP ONE; -hydrALAZINE HCL 20 MG/ML 1 ML VIAL IVP ONE
[2018-04-15] MEDS ORDERED: SODIUM CHLORIDE 0.9% 1,000 ML IV ONE ×2 (10:25→13:43)
[2018-04-15] MEDS ORDERED: ONDANSETRON ODT 4 MG TAB PO ONE (10:26)
[2018-04-15 10:43] LABS: Prothrombin Time 9.9 sec (9.0-12.0)
[2018-04-15] MEDS ORDERED: INDOCYANINE GREEN 25 MG VIAL IV ONE (12:20)
[2018-04-15] MEDS ORDERED: CISATRACURIUM 2 MG/ML 5 ML VIAL IV ONE (12:20)
[2018-04-15] MEDS ORDERED: fentaNYL (PF) 50 MCG/ML 2 ML AMP ONE (12:20)
[2018-04-15] MEDS ORDERED: SUCCINYLCHOLINE CHLORIDE 100 MG/5 ML SYR IV ONE (12:20)
[2018-04-15] MEDS ORDERED: LABETALOL 5 MG/ML VIAL MDV ONE (12:20)
[2018-04-15] MEDS ORDERED: KETOROLAC 30 MG/ML 1 ML VIAL ONE (12:20)
[2018-04-15] MEDS: ceFAZolin IN SWFI 2 GM/20 ML SYRINGE IVP ONE ×2 (12:20→12:47)
[2018-04-15] MEDS ORDERED: GLYCOPYRROLATE 0.2 MG/ML 2 ML VIAL ONE (12:20)
[2018-04-15] MEDS ORDERED: MIDAZOLAM 2 MG/2 ML VIAL ONE (12:20)
[2018-04-15] MEDS ORDERED: METOPROLOL TARTRATE 5 MG/5 ML VIAL IVP ONE (12:20)
[2018-04-15] MEDS ORDERED: PHENYLEPHRINE-0.9% NACL SYG 1 MG/10 ML SYRINGE ONE (12:20)
[2018-04-15] MEDS ORDERED: NEOSTIGMINE 1 MG/ML 10 ML VIAL ONE (12:20)
[2018-04-15] MEDS ORDERED: PROPOFOL 10 MG/ML 20 ML VIAL IV ONE (12:20)
[2018-04-15] MEDS ORDERED: BUPIVACAIN-EPI 0.25%-1:200,000 30 ML VIAL SQ ONE (12:46)
--- NOTE | 2018-04-15 13:33 | P.OP ---
Date of Procedure: 04/15/18 Description of Procedure: SURGEON: JACKELIN HARDY MD PREOPERATIVE DIAGNOSES: 1. Symptomatic gallstones 2. Chronic cholecystitis 3. History of gallstone pancreatitis 4. Atrial fibrillation, chronic 5. Hypertensive heart disease 6. Hypertensive neuropathy, stage III renal disease 7. Chronic anticoagulation 8. Depressive disorder POSTOPERATIVE DIAGNOSES: 1. Symptomatic gallstones 2. Chronic cholecystitis 3. History of gallstone pancreatitis 4. Atrial fibrillation, chronic 5. Hypertensive heart disease 6. Hypertensive neuropathy, stage III renal disease 7. Chronic anticoagulation 8. Depressive disorder OPERATION: Robotic-assisted da Bob Xi laparoscopic cholecystectomy, multiport with FIREFLY ESTIMATED BLOOD LOSS: 10 mL. SPECIMENS REMOVED: Gallbladder. COMPLICATIONS: None. OPERATIVE FINDINGS: 1. Chronic cholecystitis INDICATIONS: The patient is a 62-year-old female who presents with cholelcystitis. Surgical intervention with a laparoscopic cholecystectomy was described at length including injury to the biliary tree, bleeding, infection, need for further surgery. Informed consent was obtained. Robotic assisted laparoscopic approach was described. Benefits and risks of the procedure including but not limited to bleeding, infection, injury to the biliary tree was described. Informed consent was obtained. DESCRIPTION OF PROCEDURE: Patient was brought to the operating room, placed in supine position. After general induction, the abdomen had been prepped and draped in standard sterile fashion. The robotic da Bob XI system was primed. After a timeout protocol was performed, the patient had been prepped and draped in standard sterile fashion. The patient was injected with indocyanine green. A 5 mm 0 degrees laparoscopic trocar entry was performed along the left upper quadrant. The abdomen insufflated to 15 mmHg pressure which she tolerated well. Diagnostic laparoscopy demonstrated no injury to bowel viscera or mesentery. The liver surface was unremarkable. Next, two 8 mm robotic ports were placed along the right upper abdomen. The camera 8-mm port was maintained along the epigastrium. Another 8 mm port was placed along the left upper abdominal wall after exchanging the 5 mm port. Please note that the ports were placed at least 10 to 15 cm away from the target anatomy of the gallbladder. The robot was docked along the left lateral abdomen. The patient was repositioned in reverse Trendelenburg position. Using a grasper for arm 3, a grasper for arm 4, including hook cautery for arm 1 , the robotic system was docked and primed as described. Instruments were interchanged by the surgical services assistant including hook cautery, Bovie cautery and clip appliers. I had sat at the console. Adhesions were identified along the infundibulum of the gallbladder and addressed using hook cautery. The gallbladder fundus was retracted over the dome of the liver. Initial attention was brought to the infundibulum which was gently retracted in the inferior lateral approach. Using a grasper, the cystic duct including the cystic artery was carefully skeletonized. FIREFLY was used to identify the cystic artery and cystic structures. Large PLASTIC clips were used throughout the entire case. Using a clip sludge filtration operator 2 clips were placed proximally, and 1 clip was placed distally along the cystic duct and then cauterized with the cautery. Again care was taken to avoid any injury to the biliary tree as the common bile duct was clearly visualized during this portion of dissection. Next, the cystic artery was similarly clipped and cauterized. Electro-Bovie cautery was used to remove the gallbladder from the hepatic fossa. Hemostasis was checked and found to be adequate. Iatrogenic decompression occurred of the gallbladder for which bile was removed using Ray-Radhames sponge. The robot was undocked. I re-scrubbed into the case. Using a 10 mm Endo Catch bag via the left upper quadrant incision, the specimen was removed from the abdominal cavity. All pneumoperitoneum instruments were evacuated from the abdominal cavity. The incisions were reapproximated using 4-0 Monocryl in an interrupted subcuticular fashion. Fascial defects were less than 8 mm in size. Please note along the trocar sites, local anesthetic was placed as a field block prior to insertion of all instruments. Liquid glue was applied to the skin. At the end of the procedure needle, sponge, and instrument count had been verified correct by the data acquisition technician. The patient was transferred to postanesthesia care unit in stable condition. Intraoperative films were shared with the patient's family who were very pleased with the level of care. Console time 12 minutes Plan - Discharge Summary New Discharge Prescriptions: No Action PARoxetine [Paxil] 20 mg PO DAILY Warfarin [Coumadin] 2.5 mg PO SUMOTUWETH Methimazole [Tapazole] 10 mg PO BID Cholecalciferol (Vitamin D3) [Vitamin D3] 4,000 unit PO DAILY Calcitriol 0.25 mcg PO DAILY amLODIPine [Norvasc] 5 mg PO DAILY Febuxostat [Uloric] 40 mg PO DAILY Discharge Medication List PARoxetine [Paxil] 20 mg PO DAILY 05/02/14 [History] Warfarin [Coumadin] 2.5 mg PO SUMOTUWETH 05/02/14 [History] Calcitriol 0.25 mcg PO DAILY 08/03/17 [History] Cholecalciferol (Vitamin D3) [Vitamin D3] 4,000 unit PO DAILY 08/03/17 [History] Methimazole [Tapazole] 10 mg PO BID 08/03/17 [History] Febuxostat [Uloric] 40 mg PO DAILY 02/03/18 [History] amLODIPine [Norvasc] 5 mg PO DAILY 02/03/18 [History]
[2018-04-15 13:41] VITALS: TEMP 98
[2018-04-15] MEDS ORDERED: LABETALOL SYRINGE 5 MG/ML IVP ONE (13:51)
[2018-04-15 14:39] VITALS: RESP 18
[2018-04-15 15:49] VITALS: BP 145/95; PULSE 82
[2018-04-15] MEDS ORDERED: TAMSULOSIN 0.4 MG CAP.ER.24H PO STA (16:12)
== END 2018-04-15 16:54 | disposition home or self-care (01) ==
LOC: OR 09:20
PROVIDERS: ATTEND Surgery Plastic and Reconstructive Surgery
DX: K81.1 Chronic cholecystitis (principal); I48.2 Chronic atrial fibrillation; Z79.01 Long term (current) use of anticoagulants; I13.10 Hypertensive heart and chronic kidney disease without heart failure, with stage 1 through stage 4 chronic kidney disease, or unspecified chronic kidney disease; N18.3 Chronic kidney disease, stage 3 (moderate); Z99.2 Dependence on renal dialysis; F32.9 Major depressive disorder, single episode, unspecified; E05.00 Thyrotoxicosis with diffuse goiter without thyrotoxic crisis or storm; Z90.5 Acquired absence of kidney; Z79.899 Other long term (current) drug therapy
CPT/HCPCS: 47562; 88304; 85610; J2250; J1644; J1100; J2710; J3010; J1885; J2370; J0330; J2704; J0690

== ENCOUNTER → 2019-04-21 | Outpatient (CLI) | payer BC ==
[2019-04-21 16:23] LABS: Basophils # (A) 0.1 k/uL (0-0.2); Basophils % (A) 2 %; Eosinophils % (A) 0 %; HCT 35.9 % (39.0-53.0); HGB 11.5 gm/dL (13.0-17.5); Lymphocytes % (A) 13 %; MCH 31.5 pg (25.0-35.0); MCHC 32.1 g/dL (31.0-37.0); Mean Platelet Volume 6.5; Monocytes # (A) 0.6 k/uL (0-1.0); Monocytes % (A) 7 %; Neutrophils # (A) 6.1 k/uL (1.3-7.7); Neutrophils % (A) 75 %; Platelet Count 332 k/uL (150-450); RBC 3.66 m/uL (4.30-5.90); RDW 13.1 % (11.5-15.5); WBC 8.1 k/uL (3.8-10.6)
[2019-04-21 16:32] LABS: Amorphous Sediment,Urine Rare /hpf; Appearance,Urine Cloudy (Clear); Bilirubin,Urine Negative (Negative); Blood,Urine Trace (Negative); Color,Urine Yellow; Glucose,Urine (UA) Negative (Negative); Granular Casts,Urine 3 /lpf (0); Ketones,Urine Negative (Negative); Leukocyte Esterase,Urine Negative (Negative); Mucus,Urine Rare /hpf; Nitrite,Urine Negative (Negative); PH, Urine 6.5 (5.0-8.0); Protein,Urine 3+ (Negative); RBC,Urine 2 /hpf (0-5); Specific Gravity,Urine 1.016 (1.001-1.035); Sperm,Urine Rare /hpf; Squamous Epithelial Cell,Urine 1 /hpf (0-4); WBC,Urine 5 /hpf (0-5)
[2019-04-21 17:30] LABS: INR 1.1 (<1.2); Partial Thromboplastin Time 32.9 sec (22.0-30.0); Prothrombin Time 11.7 sec (9.0-12.0)
[2019-04-22 01:31] LABS: African American GFR (CKD) 12.4 (60.0-200.0); Albumin 4.5 g/dL (3.80-4.90); Albumin/Globulin Ratio 2.14 (1.60-3.17); Anion Gap 17.5 mmol/L (4.00-12.00); BUN/Creat Ratio 7.74 Ratio (12.00-20.00); Calcium 9.6 mg/dL (8.7-10.3); Carbon Dioxide 27.5 mmol/L (21.6-31.8); Globulin 2.1 g/dL (1.6-3.3); Potassium 3.9 mmol/L (3.5-5.5); Total Bilirubin 0.6 mg/dL (0.2-1.2); Total Protein 6.6 g/dL (6.2-8.2)
== END | disposition home or self-care (01) ==
LOC: LABWHC1 15:29
PROVIDERS: ATTEND Family Medicine
DX: Z01.812 Encounter for preprocedural laboratory examination (principal)
CPT/HCPCS: 36415; 80053; 81001; 85025; 85610; 85730

== ENCOUNTER → 2019-06-01 | Outpatient (CLI) | payer BC ==
--- NOTE | 2019-06-01 12:30 | FL ---
ESOPHOGRAM. HISTORY: Dysphagia Esophagram was performed per the air contrast technique. The patient swallowed barium and effervesce nt crystals without difficulty or delay. Esophageal peristalsis and motility appear to be within normal limits. There is no evidence for filling defect, mass or diverticulum. No hiatal hernia seen. Subsequently single contrast cervical esophagram was performed which fails demonstrate evidence for mass. There is evidence for aspiration. IMPRESSION: Aspiration of thin liquid barium. Otherwise unremarkable study.
== END | disposition home or self-care (01) ==
LOC: RADUSWWP 10:57
PROVIDERS: ATTEND Surgery Plastic and Reconstructive Surgery
DX: K21.9 Gastro-esophageal reflux disease without esophagitis (principal)
CPT/HCPCS: 74220

== ENCOUNTER 2019-07-07 06:57 | Day surgery (SDC) | payer BC ==
[2019-06-29 10:51] VITALS: BMI 23.7
--- NOTE | 2019-07-06 16:42 | P.GSHP ---
History of Present Illness H&P Date: 07/07/19 CHIEF COMPLAINT: GERD HISTORY OF PRESENT ILLNESS: The patient is a 63-year-old male who presents reports gastroesophageal reflux disease. Upper endoscopy was offered for further evaluation and management. PAST MEDICAL HISTORY: Please see list. PAST SURGICAL HISTORY: Please see list. MEDICATIONS: Please see list. ALLERGIES: Please see list. SOCIAL HISTORY: No illicit drug use FAMILY HISTORY: No reports of Crohn disease or ulcerative colitis. REVIEW OF ORGAN SYSTEMS: CONSTITUTIONAL: No reports of fevers or chills. GI: Denies any blood in stools or constipation. PHYSICAL EXAM: VITAL SIGNS: Stable GENERAL: Well-developed and pleasant in no acute distress. HEENT: No scleral icterus. Extraocular movements grossly intact. Moist buccal mucosa. NECK: Supple without lymphadenopathy. CHEST: Unlabored respirations. Equal bilateral excursions. CARDIOVASCULAR: Regular rate and rhythm. Distal 2+ pulses. ABDOMEN: Soft, nondistended. MUSCULOSKELETAL: No clubbing, cyanosis, or edema. ASSESSMENT: 1. Gastroesophageal reflux disease PLAN: 1. Recommend proceeding with an upper endoscopy Past Medical History Past Medical History: Atrial Fibrillation, Blood Disorder, CVA/TIA, Dialysis, Renal Disease, Thyroid Disorder Additional Past Medical History / Comment(s): HEMODIALYSIS TREATMENT ,,Sat ON LIST FOR KIDNEY TRANSPLANT, AFIB SINCE 2011, HX OF POSSIBLE STROKE LEFT EYE, 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 ANEMIA (HX OF IRON INFUSIONS., GRAVES DISEASE. History of Any Multi-Drug Resistant Organisms: None Reported Past Surgical History: Cholecystectomy, Hernia Repair Additional Past Surgical History / Comment(s): lt kidney removed (CHILD), HEMODIALYSIS port placed 04/11/18, COLONOSCOPY Past Anesthesia/Blood Transfusion Reactions: No Reported Reaction Smoking Status: Never smoker - Past Family History Mother Family Medical History: No Reported History Medications and Allergies Home Medications Medication Instructions Recorded Confirmed Type PARoxetine [Paxil] 20 mg PO DAILY 05/02/14 06/29/19 History Warfarin [Coumadin] 2.5 mg PO DAILY 05/02/14 06/29/19 History Methimazole [Tapazole] 10 mg PO BID 08/03/17 06/29/19 History Febuxostat [Uloric] 40 mg PO DAILY 02/03/18 06/29/19 History amLODIPine [Norvasc] 2.5 mg PO DAILY 02/03/18 06/29/19 History Cinacalcet [Sensipar] 30 mg PO DAILY 06/29/19 06/29/19 History Renal Multivitamin 1 tab PO DAILY 06/29/19 06/29/19 History Allergies Allergy/AdvReac Type Severity Reaction Status Date / Time No Known Allergies Allergy Verified 06/29/19 10:42
[~2019-07-07 06:57] MED LIST changes: -HEPARIN SODIUM,PORCINE 5,000 UNIT/ML 1 ML VIAL SQ ONE; -HYDROmorphone 0.5 MG/0.5 ML SYRINGE IVP PRN; -INDOCYANINE GREEN 25 MG VIAL IV STA; -MIDAZOLAM 2 MG/2 ML VIAL IV PRN; -ONDANSETRON 4 MG/2 ML VIAL IVP ONE; -SCOPOLAMINE 1.5MG/72HR PATCH TRANSDERM ONE
[2019-07-07 07:15] VITALS: TEMP 96
[2019-07-07] MEDS ORDERED: SODIUM CHLORIDE 0.9% 1,000 ML IV ONE (07:25)
[2019-07-07] MEDS ORDERED: PROPOFOL 10 MG/ML 20 ML VIAL IV ONE (07:55)
--- NOTE | 2019-07-07 08:08 | P.PCN ---
Date of Procedure: 07/07/19 Description of Procedure: PREOPERATIVE DIAGNOSIS: Gastroesophageal reflux disease. Dysphagia Chronic anticoagulant therapy POSTOPERATIVE DIAGNOSIS: Dysphagia Duodenal polyp Gastritis. Gastroesophageal reflux disease. Diaphragmatic hiatal hernia Chronic anticoagulant therapy OPERATION: Esophagogastroduodenoscopy SURGEON: Jolanta Carrera MD ANESTHESIA: MAC. INDICATIONS: The patient is a 63-year-old male who presents with a history of reflux disease. Benefits and risks of the procedure were described. Informed consent was obtained. DESCRIPTION: The patient was brought into the endoscopy suite and laid in the left lateral decubitus position. An Olympus gastroscope was passed along the posterior oropharynx down to the distal esophagus where the squamocolumnar junction was encountered at 37 cm from the incisors. The stomach was entered and no bile reflux was found. Additional findings are listed below. No biopsies were performed at the patient was taking Coumadin. The first through third portion of the duodenum was examined and demonstrated duodenal polyp. Retroflexion of the scope confirmed Hill grade 3 lower esophageal valve. The squamocolumnar junction demonstrated LA grade C erosive esophagitis. The stomach was desufflated. The patient tolerated the procedure well. FINDINGS: Squamocolumnar junction 37 cm from the incisors. Diaphragmatic hiatus at 42 cm. Hiatal hernia, 5 cm Hill grade 3 lower esophageal valve. LA grade C erosive esophagitis. Duodenal polyps RECOMMENDATIONS: Will need repeat upper endoscopy with biopsies of the esophagus and duodenum as the patient's on anticoagulant Plan - Discharge Summary Discharge Rx Participant: No New Discharge Prescriptions: No Action PARoxetine [Paxil] 20 mg PO DAILY Warfarin [Coumadin] 2.5 mg PO DAILY Methimazole [Tapazole] 10 mg PO BID amLODIPine [Norvasc] 2.5 mg PO DAILY Febuxostat [Uloric] 40 mg PO DAILY Renal Multivitamin 1 tab PO DAILY Cinacalcet [Sensipar] 30 mg PO DAILY Discharge Medication List PARoxetine [Paxil] 20 mg PO DAILY 05/02/14 [History] Warfarin [Coumadin] 2.5 mg PO DAILY 05/02/14 [History] Methimazole [Tapazole] 10 mg PO BID 08/03/17 [History] Febuxostat [Uloric] 40 mg PO DAILY 02/03/18 [History] amLODIPine [Norvasc] 2.5 mg PO DAILY 02/03/18 [History] Cinacalcet [Sensipar] 30 mg PO DAILY 06/29/19 [History] Renal Multivitamin 1 tab PO DAILY 06/29/19 [History] Follow up Appointment(s)/Referral(s): Jolanta Carrera MD [STAFF PHYSICIAN] - 07/25/19 Patient Instructions/Handouts: Hiatal Hernia (DC) Activity/Diet/Wound Care/Special Instructions: MAY RESUME COUMADIN TODAY Discharge Disposition: HOME SELF-CARE
[2019-07-07 08:17] VITALS: RESP 16
[2019-07-07 08:37] VITALS: BP 117/76; PULSE 85
== END 2019-07-07 09:13 | disposition home or self-care (01) ==
LOC: ORWHC2ENDO 06:57
PROVIDERS: ATTEND Surgery Plastic and Reconstructive Surgery
DX: K21.0 Gastro-esophageal reflux disease with esophagitis (principal); Z79.01 Long term (current) use of anticoagulants; K31.7 Polyp of stomach and duodenum; K29.70 Gastritis, unspecified, without bleeding; K44.9 Diaphragmatic hernia without obstruction or gangrene; I48.91 Unspecified atrial fibrillation; E05.00 Thyrotoxicosis with diffuse goiter without thyrotoxic crisis or storm; F32.9 Major depressive disorder, single episode, unspecified; N19 Unspecified kidney failure; Z86.73 Personal history of transient ischemic attack (TIA), and cerebral infarction without residual deficits; Z94.0 Kidney transplant status; Z90.49 Acquired absence of other specified parts of digestive tract; Z98.890 Other specified postprocedural states; Z87.19 Personal history of other diseases of the digestive system; Z99.2 Dependence on renal dialysis; Z79.899 Other long term (current) drug therapy
CPT/HCPCS: 43235; J2704

== ENCOUNTER 2019-12-25 06:21 | Inpatient (IN) | payer BC ==
--- NOTE | 2019-12-24 20:50 | P.GSHP ---
History of Present Illness H&P Date: 12/25/19 CHIEF COMPLAINT: Paraesophageal hiatal hernia with gastroesophageal reflux disease. HISTORY OF PRESENT ILLNESS: The patient is a 64-year-old male who presents with paraesophageal hiatal hernia. He has completed an esophageal manometry including upper endoscopy workup. Now he presents for surgical intervention. PAST MEDICAL HISTORY: Please see list. PAST SURGICAL HISTORY: Please see list. MEDICATIONS: Please see list. ALLERGIES: Please see list. SOCIAL HISTORY: No illicit drug use FAMILY HISTORY: No reports of Crohn disease or ulcerative colitis. REVIEW OF ORGAN SYSTEMS: CONSTITUTIONAL: No fevers or chills. HEENT: Denies any trouble with vision, hearing or nosebleeds. Has occassional difficulty swallowing. LYMPHATIC: The patient denies any lumps and bumps around the neck. ENDOCRINE: Denies any thyroid disorders. Denies any blood sugar glucose intolerance. RESPIRATORY: Denies pneumonia. Has occassional troubles with breathing or dyspnea on exertion. CARDIOVASCULAR: Denies any chest pain or recent heart attacks. History of atrial fibrillation and chronic Coumadin therapy. GASTROINTESTINAL: Denies fatty food intolerance. Denies change in bowel habits and gas bloat. GENITOURINARY: On dialysis. Has chronic kidney disease MUSCULOSKELETAL: Has occasional back pain, stiffness or joint arthritis. NEUROLOGIC: Denies any numbness or tingling along the distal extremities. No seizure disorders or headaches. PSYCHIATRIC: Has depression. No suicidal ideation. HEMATOLOGIC: Chronic Coumadin therapy. He has had seen his sheet metal assembler and riveter, Dr. Haddad. BREASTS: Denies any breast lumps, pain or nipple discharge. SKIN: No current skin cancer. No rash. PHYSICAL EXAM: VITAL SIGNS: Stable Patient is a 63-year-old male. CONSTITUTIONAL: Well developed and in no acute distress. Vitals reviewed. EYES: Conjuctivae without sclera icterus. Pupils are equally round and reactive to light. Extraocular movements grossly intact. HEAD, EARS, NOSE, THROAT: Moist buccal mucosa. Head is atraumatic, normocephalic. Hears conversational speech. No nasal drainage. NECK: Supple. No JV distention. No thyroidomegaly. RESPIRATORY: Non-labored respirations and equal bilateral excursions. No gross wheezes. CARDIOVASCULAR: Regular rate and rhythm. Extremities without moderate edema. Palpable 2+ radial pulses. ABDOMEN: No hepatomegaly. Soft. Non-tender. Nondistended. LYMPH: No neck lymphadenopathy. No axillary lymphadenopathy. MUSCULOSKELETAL: Nail and fingers with good capillary refill. SKIN: Warm and well perfused with good skin turgor. NEUROLOGIC: Cranial nerves I through XII grossly intact. Sensation upper and extremities intact. No focal or lateralizing signs. PSYCH: Appropriate affect. Alert and oriented to person, place and time. Displays appropriate insight. MEDICAL REPORT: Upper endsocopy report demonstrates 5 cm diaphragmatic hiatal hernia. Esophagram independently reviewed from May and demonstrated moderate intraesophageal reflux disease. MANOMETRY: Shows no evidence of achalasia or scleroderma. ASSESSMENT: 1. Diaphragmatic paraesophageal hiatal hernia with severe gastroesophageal reflux disease. PLAN: 1. Recommend proceeding with a robotic paraesophageal hiatal hernia with possible mesh. 2. Benefits and risks of surgical intervention was discussed including possibility of open technique. 3. Inpatient hospitalization recommended of 2 nights 4. DVT prophylaxis. 5. Antibiotic prophylaxis. 6. Patient has dialysis dependent and will coordinate for inpatient dialysis 7. Will need CBC, CMP, PT INR for end-stage renal disease including Coumadin chronic anticoagulation Past Medical History Past Medical History: Atrial Fibrillation, Dialysis, Hypertension, Renal Disease, Thyroid Disorder Additional Past Medical History / Comment(s): HEMODIALYSIS TREATMENT ,,Sat ON LIST FOR KIDNEY TRANSPLANT, POSSIBLE STROKE LEFT EYE, INJURY TO LEFT KIDNEY A CHILD AND KIDNEY REMOVED. HIATAL HERNIA, OCCASIONAL BACK PAIN. ANEMIA (HX OF IRON INFUSIONS in past) GRAVES DISEASE. History of Any Multi-Drug Resistant Organisms: None Reported Past Surgical History: Cholecystectomy, Hernia Repair Additional Past Surgical History / Comment(s): lt kidney removed (CHILD), rt arm HEMODIALYSIS port placed 04/11/18, COLONOSCOPY Past Anesthesia/Blood Transfusion Reactions: No Reported Reaction Smoking Status: Never smoker - Past Family History Mother Family Medical History: No Reported History Medications and Allergies Home Medications Medication Instructions Recorded Confirmed Type PARoxetine [Paxil] 20 mg PO HS 05/02/14 12/21/19 History Warfarin [Coumadin] 2.5 mg PO DAILY 05/02/14 12/21/19 History Methimazole [Tapazole] 10 mg PO BID 08/03/17 12/21/19 History Febuxostat [Uloric] 40 mg PO HS 02/03/18 12/21/19 History amLODIPine [Norvasc] 2.5 mg PO HS 02/03/18 12/21/19 History Cinacalcet [Sensipar] 30 mg PO HS 06/29/19 12/21/19 History Renal Multivitamin 1 tab PO DAILY 06/29/19 12/21/19 History Sevelamer Carbonate 1,600 mg PO TID-W/MEALS 12/21/19 12/21/19 History Allergies Allergy/AdvReac Type Severity Reaction Status Date / Time No Known Allergies Allergy Verified 12/21/19 15:36
[~2019-12-25 06:21] MED LIST changes: +ACETAMINOPHEN TAB 500 MG TAB PO STA; +GABAPENTIN 300 MG CAP PO STA; +HEPARIN SODIUM,PORCINE 5,000 UNIT/ML 1 ML VIAL SQ ONE; +HYDROmorphone 0.5 MG/0.5 ML SYRINGE IVP PRN; -LACTATED RINGERS 1,000 ML IV SCH; +MIDAZOLAM 2 MG/2 ML VIAL IV PRN; +ONDANSETRON 4 MG/2 ML VIAL IVP ONE; +TAMSULOSIN 0.4 MG CAP.ER.24H PO STA; +fentaNYL (PF) 50 MCG/ML 2 ML AMP IVP PRN
[2019-12-25] MEDS ORDERED: LIDOCAINE 1% (10MG/ML) FOR IV START INTRADERMA ONE (06:44)
[2019-12-25] MEDS: LACTATED RINGERS 1,000 ML IV SCH (06:44)
[2019-12-25 07:06] LABS: Basophils # (A) 0.1 k/uL (0-0.2); Basophils % (A) 1 %; Eosinophils # (A) 0.2 k/uL (0-0.7); Eosinophils % (A) 3 %; HCT 37.7 % (39.0-53.0); Lymphocytes # (A) 1.8 k/uL (1.0-4.8); Lymphocytes % (A) 28 %; MCH 30.3 pg (25.0-35.0); MCHC 31.9 g/dL (31.0-37.0); MCV 95.2 fL (80.0-100.0); Mean Platelet Volume 6.6; Monocytes # (A) 0.5 k/uL (0-1.0); Monocytes % (A) 8 %; Neutrophils # (A) 3.6 k/uL (1.3-7.7); Neutrophils % (A) 57 %; Platelet Count 298 k/uL (150-450); RBC 3.96 m/uL (4.30-5.90); RDW 14.4 % (11.5-15.5); WBC 6.4 k/uL (3.8-10.6)
[2019-12-25 07:10] LABS: Albumin 4.6 g/dL (3.5-5.0); Calcium 9.7 mg/dL (8.4-10.2); Potassium 4.4 mmol/L (3.5-5.1); Prothrombin Time 10.1 sec (9.0-12.0); Total Bilirubin 0.6 mg/dL (0.2-1.3); Total Protein 7.7 g/dL (6.3-8.2)
[2019-12-25] MEDS ORDERED: ROCURONIUM BROMIDE 10 MG/ML 5 ML VIAL IV ONE (07:11)
[2019-12-25] MEDS ORDERED: NEOSTIGMINE 1 MG/ML 10 ML VIAL ONE (07:11)
[2019-12-25] MEDS ORDERED: SUCCINYLCHOLINE CHLORIDE 100 MG/5 ML SYR IV ONE (07:11)
[2019-12-25] MEDS ORDERED: PHENYLEPHRINE-0.9% NACL SYG 1 MG/10 ML SYRINGE ONE (07:11)
[2019-12-25] MEDS ORDERED: MIDAZOLAM 2 MG/2 ML VIAL ONE (07:11)
[2019-12-25] MEDS ORDERED: LIDOCAINE 1% INJ 10MG/ML (20 ML MDV) ONE (07:11)
[2019-12-25] MEDS ORDERED: fentaNYL (PF) 50 MCG/ML 2 ML AMP ONE (07:11)
[2019-12-25] MEDS ORDERED: PROPOFOL 10 MG/ML 20 ML VIAL IV ONE (07:11)
[2019-12-25] MEDS ORDERED: GLYCOPYRROLATE 0.2 MG/ML 2 ML VIAL ONE (07:11)
[2019-12-25] MEDS ORDERED: BUPIVACAIN-EPI 0.25%-1:200,000 30 ML VIAL SQ ONE (07:51)
[2019-12-25] MEDS ORDERED: NALOXONE 0.4 MG/ML 1 ML VIAL IV PRN (09:23)
[2019-12-25] MEDS ORDERED: HYDROmorphone 1 MG/ML 1 ML SYRINGE IVP PRN (09:23)
[2019-12-25] MEDS ORDERED: diphenhydrAMINE 50 MG/ML 1 ML VIAL IVP PRN (09:23)
[2019-12-25] MEDS ORDERED: ONDANSETRON 4 MG/2 ML VIAL IVP PRN (09:23)
--- NOTE | 2019-12-25 09:23 | P.OP ---
Date of Procedure: 12/25/19 Description of Procedure: SURGEON: JACKELIN HARDY MD PREOPERATIVE DIAGNOSES: 1. Symptomatic paraesophageal diaphragmatic hiatal hernia. 2. Gastroesophageal reflux disease 3. Chaudhary's esophagus 4. Atrial fibrillation, chronic 5. Hypertensive heart disease 6. Hypertensive nephropathy 7. Chronic anticoagulation use 8. Depressive disorder 9. Dialysis dependent 10. End-stage renal disease dialysis dependent 11. Hypertensive upper esophageal sphincter with dysphagia POSTOPERATIVE DIAGNOSES: 1. Paraesophageal midline diaphragmatic hernia, 4 x 4 cm 2. Gastroesophageal reflux disease. 3. Chaudhary's esophagus 4. Atrial fibrillation, chronic 5. Hypertensive heart disease 6. Hypertensive nephropathy 7. Chronic anticoagulation use 8. Depressive disorder 9. Dialysis dependent 10. End-stage renal disease dialysis dependent 11. Recurrent right inguinal hernia 12. Duodenitis with duodenal ulcers 13. Hypertensive upper esophageal sphincter with dysphagia OPERATION: 1. Robotic-assisted da Bob Xi laparoscopic repair of paraesophageal hiatal hernia, 4 x 4 cm, with Agency Biopatch A 8 x 8 cm. 2. Intraoperative esophagogastroduodenoscopy 3. Intraoperative rigid dilator with 56-Somali bougie ANESTHESIA: General with local anesthetic. ESTIMATED BLOOD LOSS: 5 mL COMPLICATIONS: None. Pathology: none sent Condition: stable Disposition: floor Operative Findings: 1. Hiatus hernia 4 x 4 centimeters oversewn with nonabsorbable suture and mesh 2. Recurrent right inguinal hernia identified 3. No hepatomegaly 4. Superficial duodenal ulcers with duodenitis first portion of duodenum 5. Hypertensive upper esophageal sphincter dilated 6. Superficial mild mucosal tear along distal esophagus less than 5 mm 7. Intraesophageal length over 4 cm obtained 8. Hill grade 1 lower esophageal valve upon completion at 40 cm from the incisors INDICATIONS: The patient is a 64-year-old male who presents with regurgitation, gastroesophageal reflux disease poorly controlled despite medications, and a symptomatic diaphragmatic hiatal hernia. Preoperative workup including upper endoscopy demonstrated a Hill grade 4 lower esophageal valve. He completed an esophageal manometry demonstrating reflux and hypertensive upper esophageal sphincter. Given the severity of symptoms, he had elected for surgical intervention. Benefits and risks including bleeding, infection, recurrence, dysphagia, injury to the lung, need for further surgery was described at length. Informed consent was obtained. DESCRIPTION: The patient was brought into the operating room and placed in supine position. Preoperatively she had received heparin subcutaneously for DVT prophylaxis. After general induction, the abdomen was prepped and draped in standard sterile fashion. Ioban draping was placed along the abdomen. A timeout protocol was confirmed with the surgical team, for which the patient's name, procedure to be performed including DVT prophylaxis with bilateral SCDs, and preoperative antibiotics were also confirmed. A robotic da Bob Xi system was prepped and primed. At 15 cm from the xiphoid to just below the umbilicus, proposed port sites were marked with indelible marker along the left axillary line, left mid-clavicular line with each ports were marked 10 cm from each other. A 5 mm 0 degrees laparoscopic trocar entry was performed along the left upper quadrant. The abdomen was insufflated to 15 mmHg pressure was tolerated well. Diagnostic laparoscopy demonstrated no injury to bowel, viscera, or mesentery. No injury had occurred to the small bowel or viscera. Recurrent right indirect inguinal hernia was identified, less than one centimeters in size. Next, one 8 mm robotic port was placed along the right upper abdomen. An 8-mm port was were placed along the left lateral abdominal wall. The camera 8-mm port was maintained along the epigastrium via the hernia defect. Another 12 mm port was placed along the left upper abdominal wall after exchanging the 5 mm port. Please note that the ports were placed at least 20 cm away from the target anatomy. Care was taken to check that each robotic arm were safely away from collision with the bed or the patient. At the epigastrium, a medium sized Ramone liver retractor was placed under direct visualization with the [employer] Insurance Claims Examiner placed under the right shoulder of the patient. All robotic arms were used. The patient was repositioned in reverse Trendelenburg position at 16-degrees after lowering the bed. The robot was docked above the right side of the patient. Using a grasper for arm 3, a grasper for arm 1, including vessel sealer for arm 2, the robotic system was docked and primed as described. Instruments were interchanged by the billing and accounting staff assistant. I had sat at the console. The gastrohepatic ligament was cleaved using a vessel sealer. Next, the phrenoesophageal ligament was mobilized and the distal esophagus was mobilized circumferentially. The left and right crura was identified. Circumferentially, the hernia sac was excised and brought into the peritoneal cavity. Moderate dissection into the mediastinum was performed to release the esophagus into the abdominal cavity. The bilateral vagi nerves were identified and spared from dissection. The measured defect was consistent with 4 cm axial length and 4 cm in width. After dissection, the distal esophagus of 4 cm was brought into the abdominal cavity. Once the hiatus and crura was dissected, 2-0 VLOC nonabsorbable suture was placed to reapproximate the diaphragmatic hiatus posteriorly. To buttress the repair, a Agency Biopatch A was prepared along the back table and cut in half of a gilliam-hole fashion as to reinforce the repair as an underlay. The mesh was placed along the crural repair and tagged using horizontal mattress sutures using 2-0 VLOC. I went to the head of the bed to perform intraoperative esophagogastroduodenoscopy and placement of a 56Fr bougie to dilate the upper esophageal sphincter and placed at 40 cm from the incisors. The dilator was placed for 1 minute to address hypertensive esophageal sphincter. Next the scope was passed. An Olympus gastroscope was passed through posterior oropharynx. Mild mucosal tear along distal esophagus less than 5 mm was found and superficial. Intraesophageal length over 4 cm obtained and confirmed upon laparoscopy. The scope was passed the duodenum were superficial to 1 nidus and duodenal ulcers were identified without active bleeding. Hill grade 1 lower esophageal valve upon completion at 40 cm from the incisors was confirmed after retroflexion of the scope. The stomach had been desufflated. No evidence of leaks were found of the esophagus or stomach. The GI tract with desufflated This concluded the endoscopic portion of the case. The robot was undocked from the patient. I re-scrubbed into the case. All instruments and pneumoperitoneum and specimens were evacuated from the abdominal cavity. Incisions were reapproximated using 4-0 Monocryl in an interrupted subcuticular fashion. Liquid glue was applied to the skin. Local anesthetic was infiltrated in all wounds for postop analgesia. Multiple intra-abdominal films were obtained. At the end of the procedure, needle, sponge, and instrument count was verified correct by the medical or surgical instrument maker. The patient had tolerated the procedure well and was taken to the postanesthesia unit in stable condition. Intraoperative films were reviewed with the patient's family who was pleased with the level of care.
[2019-12-25] MEDS ORDERED: LABETALOL SYRINGE 5 MG/ML IVP ONE (10:13)
[2019-12-25] MEDS ORDERED: ACETAMINOPHEN IV (For NPO) 1,000 MG in EMPTY BAG 1 BAG IVPB ONE ×2 (11:00→12:42)
[2019-12-25] MEDS: SODIUM CHLORIDE 0.9% 1,000 ML IV SCH ×2 (11:18→19:40)
[2019-12-25] MEDS: HYOSCYAMINE ORAL DROPS 1.875 MG/15 ML BOTTLE PO SCH ×2 (11:35→17:00)
[2019-12-25] MEDS: SIMETHICONE 40 MG/0.6 ML DROPS 2,000 MG/30 ML BOTTLE PO SCH ×2 (11:36→17:00)
[2019-12-25] MEDS: DEXAMETHASONE SOD PHOSPHATE 4 MG/ML 1 ML VIAL IV SCH ×2 (13:02→16:59)
[2019-12-25] MEDS: ONDANSETRON 4 MG/2 ML VIAL IVP SCH (17:00)
[2019-12-25] MEDS: METOCLOPRAMIDE 5 MG/ML 2 ML VIAL IVP SCH (17:00)
[2019-12-25] MEDS: amLODIPine 2.5 MG TAB PO SCH (19:41)
[2019-12-25] MEDS: METHIMAZOLE 5 MG TAB PO SCH (19:41)
[2019-12-26] MEDS: ONDANSETRON 4 MG/2 ML VIAL IVP SCH ×4 (00:56→17:12)
[2019-12-26] MEDS: DEXAMETHASONE SOD PHOSPHATE 4 MG/ML 1 ML VIAL IV SCH ×4 (00:56→17:13)
[2019-12-26] MEDS: METOCLOPRAMIDE 5 MG/ML 2 ML VIAL IVP SCH ×4 (00:56→17:12)
[2019-12-26] MEDS: HYOSCYAMINE ORAL DROPS 1.875 MG/15 ML BOTTLE PO SCH ×4 (00:56→17:15)
[2019-12-26] MEDS: SIMETHICONE 40 MG/0.6 ML DROPS 2,000 MG/30 ML BOTTLE PO SCH ×4 (00:57→17:15)
[2019-12-26] MEDS: LACTATED RINGERS 1,000 ML IV SCH (05:43)
[2019-12-26] MEDS: ENOXAPARIN 30 MG/0.3 ML SYRINGE SQ SCH (07:24)
[2019-12-26] MEDS: PANTOPRAZOLE 40 MG/10 ML VIAL IV SCH (07:24)
[2019-12-26] MEDS: METHIMAZOLE 5 MG TAB PO SCH ×2 (07:24→20:30)
[2019-12-26 07:56] LABS: Basophils % (A) 0 %; Eosinophils % (A) 0 %; HCT 33.2 % (39.0-53.0); HGB 10.5 gm/dL (13.0-17.5); Lymphocytes # (A) 0.5 k/uL (1.0-4.8); Lymphocytes % (A) 9 %; MCH 31.2 pg (25.0-35.0); MCHC 31.5 g/dL (31.0-37.0); MCV 98.8 fL (80.0-100.0); Macrocytosis Slight; Mean Platelet Volume 6.8; Monocytes # (A) 0.2 k/uL (0-1.0); Monocytes % (A) 3 %; Neutrophils # (A) 4.7 k/uL (1.3-7.7); Neutrophils % (A) 87 %; Platelet Count 236 k/uL (150-450); RBC 3.36 m/uL (4.30-5.90); RDW 14.7 % (11.5-15.5); WBC 5.4 k/uL (3.8-10.6)
[2019-12-26 09:44] LABS: Magnesium 2.2 mg/dL (1.6-2.3); Phosphorus 7.4 mg/dL (2.5-4.5); Potassium 4.8 mmol/L (3.5-5.1)
[2019-12-26] MEDS: SODIUM CHLORIDE 0.9% 1,000 ML IV SCH (11:13)
[2019-12-26 11:14] VITALS: BMI 26.1
--- NOTE | 2019-12-26 11:32 | P.PN ---
<Annmarie Falcon - Last Filed: 12/26/19 11:28> Subjective Progress Note Date: 12/26/19 CHIEF COMPLAINT: Paraesophageal hiatal hernia HISTORY OF PRESENT ILLNESS: Patient is status post robotic hiatal hernia repair with mesh with Dr. Carrera. Postop day #1. Patient examined at the bedside. He denies pain. He is tolerating clear liquid diet. He is due to receive dialysis today. Vital signs are stable. Afebrile. PHYSICAL EXAM: VITAL SIGNS: Reviewed GENERAL: Well-developed in no acute distress. HEENT: No sclera icterus. Extraocular movements grossly intact. Moist buccal mucosa. Head is atraumatic, normocephalic. Hears conversational speech. No nasal drainage. NECK: Supple without lymphadenopathy. CHEST: Non-labored respirations and equal bilateral excursions. CARDIOVASCULAR: Regular rate with regular rhythm. Palpable 2+ radial pulses. ABDOMEN: Soft. Nondistended. Surgical sites clean dry and intact MUSCULOSKELETAL: No clubbing or cyanosis. NEUROLOGIC: No focal or lateralizing signs. Cranial nerves II through XII grossly intact. PSYCH: Appropriate affect. Alert and oriented to person, place and time. SKIN: Well perfused. Good skin turgor. ASSESSMENT: 1. Hiatal hernia, status post robotic hiatal hernia repair with mesh PLAN: -Continue clear liquid diet -Activity as tolerated -Incentive spirometer -Pain control -Patient to receive HD today -Continue to hold Coumadin for today -Anticipate discharge home tomorrow Nurse practitioner note has been reviewed by physician. Signing provider agrees with the documented findings, assessment, and plan of care. Objective - Vital Signs Vital signs: Vital Signs Temp 97.5 F L 12/26/19 07:00 Pulse 86 12/26/19 07:00 Resp 16 12/26/19 07:00 BP 120/64 12/26/19 07:00 Pulse Ox 95 12/26/19 07:00 Intake & Output 12/25/19 12/26/19 12/26/19 18:59 06:59 18:59 Intake Total 750 Output Total 5 450 300 Balance 745 -450 -300 Weight 85 kg 85 kg Intake: IV 750 Output: Urine 450 300 Estimated Blood Loss 5 Other: Voiding Method Urinal Urinal # Voids 0 - Labs CBC & Chem 7: 12/26/19 07:17 12/26/19 07:17 Labs: Abnormal Lab Results - Last 24 Hours (Table) 12/26/19 12/26/19 Range/Units 07:17 07:17 RBC 3.36 L (4.30-5.90) m/uL Hgb 10.5 L (13.0-17.5) gm/dL Hct 33.2 L (39.0-53.0) % Lymphocytes # 0.5 L (1.0-4.8) k/uL Sodium 135 L (137-145) mmol/L Carbon Dioxide 21 L (22-30) mmol/L BUN 53 H (9-20) mg/dL Creatinine 6.38 H (0.66-1.25) mg/dL Phosphorus 7.4 H (2.5-4.5) mg/dL <Jolanta Carrera - Last Filed: 01/01/20 08:20> Subjective Patient seen and evaluated with nurse practitioner. Also, secondary to the patient's end-stage renal disease, nephrology has been consulted for management of hemodialysis for which patient is high risk following surgery. He reports no dysphagia. He also denies any gastroesophageal reflux disease. Will anticipate discharge upon recovery from hemodialysis tomorrow Objective - Vital Signs Vital signs: Vital Signs Temp 97.8 F 12/27/19 07:32 Pulse 77 12/27/19 07:32 Resp 18 12/27/19 07:32 BP 131/84 12/27/19 07:32 Pulse Ox 95 12/27/19 07:32 - Labs CBC & Chem 7: 12/27/19 05:27 12/27/19 05:27
--- NOTE | 2019-12-26 13:21 | FL ---
Single contrast esophagram EXAMINATION TYPE: FL esophagus cervic/pharynx DATE OF EXAM: 12/26/2019 12:39 PM COMPARISON: NONE pt had hiatal hernia repair yesterday, 31 sec fl, pt drank 2 oz isovue [id number] CLINICAL HISTORY: Status post Sunil fundoplication The patient ingested contrast without difficulty or delay. Noted are changes of Sunil fundoplicatio n. There is no evidence for leak or obstruction. Small amount of residual contrast within the distal esophagus. IMPRESSION: Post-surgical change of Sunil fundoplication without evidence for leak or obstruction.
--- NOTE | 2019-12-26 17:10 | CONS ---
CONSULTATION REASON FOR CONSULT: End-stage renal disease. HISTORY OF PRESENT ILLNESS: The patient is a 64-year-old male with end-stage renal disease, on hemodialysis on a Wednesday, , Wednesday schedule via right arm AV fistula. He was admitted to the hospital for repair of diaphragmatic and recurrent right inguinal hernia. Patient had surgery yesterday. He is currently doing quite well. PAST MEDICAL HISTORY: End-stage renal disease, hypertension, CKD mineral bone disorder, history of atrial fibrillation, hypothyroidism, history of left nephrectomy after injury during childhood. PAST SURGICAL HISTORY: Cholecystectomy, previous hernia repair, left nephrectomy, AV fistula right arm, previous colonoscopy. SOCIAL HISTORY: Negative for smoking, drug abuse or alcohol abuse. MEDICATIONS: Prior to admission included Paxil, Coumadin, Tapazole, Uloric, Norvasc, Sensipar, Renvela, multivitamins. ALLERGIES: None. REVIEW OF SYSTEMS: As per HPI. Other systems negative. PHYSICAL EXAMINATION: Patient is comfortable, awake, alert, oriented x3, not in any acute distress. Blood pressure is 120/64, heart rate 86 per minute, he is afebrile. Examination of the heart S1, S2. Examination of the lungs, bilateral breath sounds are heard. Abdomen is soft. Mild tenderness noted. Examination of lower extremities shows no significant edema. 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 LABS: Show sodium 135, potassium 4.8, chloride 102, hemoglobin 10.5, and albumin 4.6. ASSESSMENT: 1. End-stage renal disease, on hemodialysis on a Wednesday, , Wednesday schedule. The patient will be dialyzed today. 2. Status post inguinal hernia repair. EGD with findings of superficial duodenal ulcers, duodenitis. 3. CKD mineral bone disorder. 4. Hyperthyroidism, maintained on Tapazole. PLAN: Discontinue IV fluids. Arrange for hemodialysis today and maintain other home medications. MMODL / IJN: [id number] /
[2019-12-26 19:34] VITALS: TEMP 97.8
[2019-12-26] MEDS: amLODIPine 2.5 MG TAB PO SCH (20:30)
[2019-12-27] MEDS: ONDANSETRON 4 MG/2 ML VIAL IVP SCH ×3 (00:46→11:14)
[2019-12-27] MEDS: DEXAMETHASONE SOD PHOSPHATE 4 MG/ML 1 ML VIAL IV SCH ×3 (00:46→11:19)
[2019-12-27] MEDS: METOCLOPRAMIDE 5 MG/ML 2 ML VIAL IVP SCH ×3 (00:46→11:19)
[2019-12-27] MEDS: HYOSCYAMINE ORAL DROPS 1.875 MG/15 ML BOTTLE PO SCH ×3 (00:49→11:19)
[2019-12-27] MEDS: SIMETHICONE 40 MG/0.6 ML DROPS 2,000 MG/30 ML BOTTLE PO SCH ×3 (00:50→11:20)
[2019-12-27] MEDS: LACTATED RINGERS 1,000 ML IV SCH (05:44)
[2019-12-27 06:55] LABS: Basophils % (A) 0 %; Eosinophils % (A) 0 %; HCT 31.5 % (39.0-53.0); HGB 10.6 gm/dL (13.0-17.5); Lymphocytes # (A) 0.4 k/uL (1.0-4.8); Lymphocytes % (A) 6 %; MCH 32.7 pg (25.0-35.0); MCHC 33.6 g/dL (31.0-37.0); MCV 97.5 fL (80.0-100.0); Macrocytosis Slight; Monocytes # (A) 0.2 k/uL (0-1.0); Monocytes % (A) 3 %; Neutrophils # (A) 5.3 k/uL (1.3-7.7); Neutrophils % (A) 89 %; Platelet Count 241 k/uL (150-450); RBC 3.23 m/uL (4.30-5.90); RDW 15.4 % (11.5-15.5); WBC 5.9 k/uL (3.8-10.6)
[2019-12-27 07:02] LABS: Calcium 9.2 mg/dL (8.4-10.2); Potassium 4.7 mmol/L (3.5-5.1)
[2019-12-27] MEDS ORDERED: BISACODYL 5 MG TABLET.DR PO PRN (08:00)
[2019-12-27 08:05] VITALS: BP 131/84; PULSE 77; RESP 18
[2019-12-27] MEDS: ENOXAPARIN 30 MG/0.3 ML SYRINGE SQ SCH (08:12)
[2019-12-27] MEDS: PANTOPRAZOLE 40 MG/10 ML VIAL IV SCH (08:12)
[2019-12-27] MEDS: METHIMAZOLE 5 MG TAB PO SCH (08:13)
--- NOTE | 2019-12-27 12:26 | P.PN ---
<Annmarie Falcon - Last Filed: 12/27/19 12:16> Subjective Progress Note Date: 12/27/19 CHIEF COMPLAINT: Paraesophageal hiatal hernia HISTORY OF PRESENT ILLNESS: Patient is status post robotic hiatal hernia repair with mesh with Dr. Carrera. Postop day #2. Patient examined at the bedside. He denies pain. He is tolerating clear liquid diet. Vital signs are stable. Afebrile. PHYSICAL EXAM: VITAL SIGNS: Reviewed GENERAL: Well-developed in no acute distress. HEENT: No sclera icterus. Extraocular movements grossly intact. Moist buccal mucosa. Head is atraumatic, normocephalic. Hears conversational speech. No nasal drainage. NECK: Supple without lymphadenopathy. CHEST: Non-labored respirations and equal bilateral excursions. CARDIOVASCULAR: Regular rate with regular rhythm. Palpable 2+ radial pulses. ABDOMEN: Soft. Nondistended. Surgical sites clean dry and intact MUSCULOSKELETAL: No clubbing or cyanosis. NEUROLOGIC: No focal or lateralizing signs. Cranial nerves II through XII grossly intact. PSYCH: Appropriate affect. Alert and oriented to person, place and time. SKIN: Well perfused. Good skin turgor. ASSESSMENT: 1. Hiatal hernia, status post robotic hiatal hernia repair with mesh PLAN: -Continue clear liquid diet -Activity as tolerated -Incentive spirometer -Pain control -Possible discharge this afternoon after patient is re-evaluated by Dr. Carrera Nurse practitioner note has been reviewed by physician. Signing provider agrees with the documented findings, assessment, and plan of care. Objective - Vital Signs Vital signs: Vital Signs Temp 97.8 F 12/27/19 07:32 Pulse 77 12/27/19 07:32 Resp 18 12/27/19 07:32 BP 131/84 12/27/19 07:32 Pulse Ox 95 12/27/19 07:32 Intake & Output 12/26/19 12/27/19 12/27/19 18:59 06:59 18:59 Output Total 300 300 Balance -300 -300 Weight 85 kg Output: Urine 300 300 Other: Voiding Method Toilet Toilet # Voids 1 # Bowel Movements 1 - Labs CBC & Chem 7: 12/27/19 05:27 12/27/19 05:27 Labs: Abnormal Lab Results - Last 24 Hours (Table) 12/27/19 12/27/19 Range/Units 05:27 05:27 RBC 3.23 L (4.30-5.90) m/uL Hgb 10.6 L (13.0-17.5) gm/dL Hct 31.5 L (39.0-53.0) % Lymphocytes # 0.4 L (1.0-4.8) k/uL Sodium 135 L (137-145) mmol/L BUN 30 H (9-20) mg/dL Creatinine 3.82 H (0.66-1.25) mg/dL Glucose 108 H (74-99) mg/dL <Jolanta Carrera - Last Filed: 01/01/20 08:22> Subjective Patient seen and evaluated with nurse practitioner. Agree with above. Esophagram independent review without any leaks. No moderate obstruction identified. He has completed his dialysis and doing well. I asked the patient guidelines for his post-Bashir diet despite prolonged education in the office. Patient reports he didn't remember. Post-Bashir diet reprinted. Patient advised to stay away from meats, pork, chicken, soft foods. He is on a full liquid renal diet. Will anticipate discharge this afternoon. Objective - Vital Signs Vital signs: Vital Signs Temp 97.8 F 12/27/19 07:32 Pulse 77 12/27/19 07:32 Resp 18 12/27/19 07:32 BP 131/84 12/27/19 07:32 Pulse Ox 95 12/27/19 07:32 - Labs CBC & Chem 7: 12/27/19 05:27 12/27/19 05:27
--- NOTE | 2019-12-27 14:14 | PN ---
PROGRESS NOTE Patient is seen for followup for end-stage renal disease. He is currently doing well. He is status post robotic hernia repair and doing well. The patient was dialyzed yesterday. He tolerated his treatment well. PHYSICAL EXAMINATION: On examination today, blood pressure is 127/82, heart rate 84 per minute, he is afebrile. Examination of the heart S1, S2. Examination of the lungs, bilateral breath sounds are heard. Abdomen is soft, nontender. Examination of the lower extremities shows no evidence of edema. IN[employer]OL ASSOCIATE exam grossly intact. LABS: Show sodium 135, potassium 4.7, chloride 100, CO2 is 26, BUN 30, creatinine 3.82, hemoglobin 10.6 g/dL. ASSESSMENT: 1. End-stage renal disease, on hemodialysis on a Wednesday, , Wednesday schedule. Patient can be discharged. Will follow up for dialysis tomorrow. 2. Status postop day 2 of robotic hiatal hernia repair with mesh by Dr. Carrera. 3. CKD mineral bone disorder. PLAN: Patient is stable for discharge from nephrology standpoint, follow up for dialysis tomorrow as outpatient. MMODL / IJN: [id number] /
--- NOTE | 2020-01-01 08:27 | P.DS ---
Providers Date of admission: 12/25/19 10:42 Expected date of discharge: 12/27/19 Attending physician: Jolanta Carrera Consults: 12/25/19 09:27 Consult Physician Routine Consulting Provider: Alisia Matthews Consult Reason/Comments: Dialysis management due tomorrow 12/25 Do you want consulting provider notified?: Yes Primary care physician: Radha Emanuel - Discharge Diagnosis(es) (1) Paraesophageal hernia Status: Acute (2) Gastroesophageal reflux disease Status: Acute (3) Esophageal hypertension Status: Acute (4) Dysphagia Status: Acute (5) Hypertensive nephropathy Status: Acute (6) End stage renal failure on dialysis Status: Acute (7) Depressive disorder Status: Acute (8) Persistent atrial fibrillation Status: Chronic (9) Duodenal ulcer Status: Acute (10) Chronic anticoagulation Status: Acute Hospital Course: POSTOPERATIVE DIAGNOSES: 1. Paraesophageal midline diaphragmatic hernia, 4 x 4 cm 2. Gastroesophageal reflux disease. 3. Chaudhary's esophagus 4. Atrial fibrillation, chronic 5. Hypertensive heart disease 6. Hypertensive nephropathy 7. Chronic anticoagulation use 8. Depressive disorder 9. Dialysis dependent 10. End-stage renal disease dialysis dependent 11. Recurrent right inguinal hernia 12. Duodenitis with duodenal ulcers 13. Hypertensive upper esophageal sphincter with dysphagia COURSE: The patient is a 64-year-old male who presents with pre-existing gastroesophageal reflux disease including dysphagia due to symptomatic diaphragmatic hiatal hernia. He completed upper upper endoscopy including manometry confirming severity of reflux due to a weak lower esophageal sphincter. Secondary to his end-stage renal disease and hemodialysis, patient's was admitted postprocedure due to high-risk including anticoagulants for persistent atrial fibrillation. Intraoperative features including recurrent right inguinal hernia was identified and undisturbed. Postprocedure, he was tolerating diet without dysphagia. He reported resolution of his gastroesophageal reflux disease. Esophagram demonstrated no leaks or moderate obstruction. He had additional findings of duodenitis or duodenal ulcers which and masses were prescribed at least for 2 weeks. Discharge instructions including hiatal hernia diet was reviewed in detail by me to include liquid-based renal diet. Patient IN the office in one week. Procedures: OPERATION: 1. Robotic-assisted da Bob Xi laparoscopic repair of paraesophageal hiatal hernia, 4 x 4 cm, with [place] Biopatch A 8 x 8 cm. 2. Intraoperative esophagogastroduodenoscopy 3. Intraoperative rigid dilator with 56-Citizen [place] bougie Patient Condition at Discharge: Good Plan - Discharge Summary Discharge Rx Participant: Yes New Discharge Prescriptions: New Omeprazole [PriLOSEC] 40 mg PO DAILY #14 cap Acetaminophen Tab [Tylenol Tab] 500 mg PO Q6H PRN #30 tablet PRN Reason: Pain Simethicone 40 mg/0.6 ml Drops [Mylicon Drops] 40 mg PO Q6HR PRN #30 ml PRN Reason: Abdominal Distention Continue PARoxetine [Paxil] 20 mg PO HS Warfarin [Coumadin] 2.5 mg PO DAILY Methimazole [Tapazole] 10 mg PO BID amLODIPine [Norvasc] 2.5 mg PO HS Febuxostat [Uloric] 40 mg PO HS Renal Multivitamin 1 tab PO DAILY Cinacalcet [Sensipar] 30 mg PO HS Sevelamer Carbonate 1,600 mg PO TID-W/MEALS Discharge Medication List PARoxetine [Paxil] 20 mg PO HS 05/02/14 [History] Warfarin [Coumadin] 2.5 mg PO DAILY 05/02/14 [History] Methimazole [Tapazole] 10 mg PO BID 08/03/17 [History] Febuxostat [Uloric] 40 mg PO HS 02/03/18 [History] amLODIPine [Norvasc] 2.5 mg PO HS 02/03/18 [History] Cinacalcet [Sensipar] 30 mg PO HS 06/29/19 [History] Renal Multivitamin 1 tab PO DAILY 06/29/19 [History] Sevelamer Carbonate 1,600 mg PO TID-W/MEALS 12/21/19 [History] Acetaminophen Tab [Tylenol Tab] 500 mg PO Q6H PRN #30 tablet 12/27/19 [Rx] Omeprazole [PriLOSEC] 40 mg PO DAILY #14 cap 12/27/19 [Rx] Simethicone 40 mg/0.6 ml Drops [Mylicon Drops] 40 mg PO Q6HR PRN #30 ml 12/27/19 [Rx] Follow up Appointment(s)/Referral(s): Jolanta Carrera MD [STAFF PHYSICIAN] - 01/02/20 4:45 pm Patient Instructions/Handouts: Peptic Ulcer (DC), Laparoscopic Hiatal Hernia Repair (DC) Activity/Diet/Wound Care/Special Instructions: START COUMADIN THIS 12/29/19. Liquid diet only. No carbonated beverages. No straws. No lifting over 4 pounds in 4 weeks, January 23. November shower. No bath tub soaks for 2 weeks until January 09. November take [id number] Tylenol for pain. Do not remove scopolamine patch for 3 days, if present Discharge Disposition: HOME SELF-CARE
== END 2019-12-27 13:31 | disposition home or self-care (01) | DRG 326 ==
LOC: OR 06:21 → 4SSUR 10:42
PROVIDERS: ADMIT Surgery Plastic and Reconstructive Surgery; ATTEND Surgery Plastic and Reconstructive Surgery
PROC: 0BUT4JZ Supplement Diaphragm with Synthetic Substitute, Percutaneous Endoscopic Approach (ICD-10-PCS; principal; 2019-12-25 07:00)
PROC: 8E0W4CZ Robotic Assisted Procedure of Trunk Region, Percutaneous Endoscopic Approach (ICD-10-PCS; principal; 2019-12-25 07:00)
PROC: 0D7 Gastrointestinal System, Dilation (ICD-10-PCS; principal; 2019-12-25 07:00)
PROC: 0DJ08ZZ Inspection of Upper Intestinal Tract, Via Natural or Artificial Opening Endoscopic (ICD-10-PCS; principal; 2019-12-25 07:00)
DX: K44.9 Diaphragmatic hernia without obstruction or gangrene (principal); N18.6 End stage renal disease; I13.11 Hypertensive heart and chronic kidney disease without heart failure, with stage 5 chronic kidney disease, or end stage renal disease; I48.19 Other persistent atrial fibrillation; K26.9 Duodenal ulcer, unspecified as acute or chronic, without hemorrhage or perforation; K22.70 Barrett's esophagus without dysplasia; K21.9 Gastro-esophageal reflux disease without esophagitis; F32.9 Major depressive disorder, single episode, unspecified; K29.80 Duodenitis without bleeding; K40.91 Unilateral inguinal hernia, without obstruction or gangrene, recurrent; M89.9 Disorder of bone, unspecified; E05.00 Thyrotoxicosis with diffuse goiter without thyrotoxic crisis or storm; K22.8 Other specified diseases of esophagus; Z76.82 Awaiting organ transplant status; Z79.01 Long term (current) use of anticoagulants; Z79.899 Other long term (current) drug therapy; Z90.5 Acquired absence of kidney; Z99.2 Dependence on renal dialysis; Z90.49 Acquired absence of other specified parts of digestive tract
CPT/HCPCS: 74210; 80048; 80051; 80053; 82310; 82565; 83735; 84100; 84520; 85025; 85610

== ENCOUNTER → 2020-07-01 | Outpatient (CLI) | payer BC ==
--- NOTE | 2020-07-01 10:56 | FL ---
ESOPHOGRAM. HISTORY: History of hiatal hernia repair Esophagram was performed per the air contrast technique. The patient swallowed barium and effervesce nt crystals without difficulty or delay. Esophageal peristalsis and motility appear to be within normal limits. There is no evidence for filling defect, mass or diverticulum. Tiny reducible hiatal hernia is noted. IMPRESSION: Tiny reducible hiatal hernia is noted.
== END | disposition home or self-care (01) ==
LOC: RADUSWWP 09:47
PROVIDERS: ATTEND Surgery Plastic and Reconstructive Surgery
DX: K44.9 Diaphragmatic hernia without obstruction or gangrene (principal)
CPT/HCPCS: 74220

== ENCOUNTER → 2021-08-01 | Outpatient (CLI) | payer BC ==
[2021-08-01 20:35] LABS: T4, Free (Free Thyroxine) 1.4 ng/dL (0.800-1.800)
== END | disposition home or self-care (01) ==
LOC: LABWHC1 11:46
PROVIDERS: ATTEND Internal Medicine Endocrinology, Diabetes & Metabolism
DX: E05.00 Thyrotoxicosis with diffuse goiter without thyrotoxic crisis or storm (principal)
CPT/HCPCS: 36415; 84439; 84443; 84480

== ENCOUNTER → 2021-10-22 | Outpatient (CLI) | payer BC ==
[2021-10-22 19:30] LABS: T4, Free (Free Thyroxine) 1.31 ng/dL (0.800-1.800)
== END | disposition home or self-care (01) ==
LOC: LABWHC1 13:51
PROVIDERS: ATTEND Internal Medicine Endocrinology, Diabetes & Metabolism
DX: E04.2 Nontoxic multinodular goiter (principal)
CPT/HCPCS: 36415; 84439; 84443

== ENCOUNTER → 2021-12-15 | Outpatient (CLI) | payer MEDICARE, BC ==
[2021-12-15 23:13] LABS: T4, Free (Free Thyroxine) 0.68 ng/dL (0.800-1.800)
== END | disposition home or self-care (01) ==
LOC: LABWHC1 15:34
PROVIDERS: ATTEND Internal Medicine Endocrinology, Diabetes & Metabolism
DX: E04.2 Nontoxic multinodular goiter (principal)
CPT/HCPCS: 36415; 84439; 84443

== ENCOUNTER → 2022-01-28 | Outpatient (CLI) | payer MEDICARE, BC ==
[2022-01-28 22:24] LABS: T4, Free (Free Thyroxine) 1.23 ng/dL (0.800-1.800)
== END | disposition home or self-care (01) ==
LOC: LABWHC1 11:14
PROVIDERS: ATTEND Internal Medicine Endocrinology, Diabetes & Metabolism
DX: E04.2 Nontoxic multinodular goiter (principal)
CPT/HCPCS: 36415; 84439; 84443; 84480

== ENCOUNTER → 2022-03-27 | Outpatient (CLI) | payer MEDICARE, BC | END | disposition home or self-care (01) | LOC: LABWHC1 11:09 | PROVIDERS: ATTEND Internal Medicine Endocrinology, Diabetes & Metabolism | DX: E03.8 Other specified hypothyroidism (principal) | CPT/HCPCS: 36415; 84443 ==

== ENCOUNTER → 2022-06-29 | Outpatient (CLI) | payer MEDICARE, BC | END | disposition home or self-care (01) | LOC: LABWHC1 10:44 | PROVIDERS: ATTEND Internal Medicine Endocrinology, Diabetes & Metabolism | DX: E03.8 Other specified hypothyroidism (principal) | CPT/HCPCS: 36415; 84443 ==

== ENCOUNTER 2022-07-02 18:06 | Emergency (ER) | payer OTHER, BC, MEDICARE ==
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
[2022-07-02 22:16] VITALS: BP 132/96; PULSE 85; RESP 18; TEMP 98.2
== END 2022-07-02 22:10 | disposition home or self-care (01) ==
LOC: EC 18:06
DX: Z04.3 Encounter for examination and observation following other accident (principal); I48.91 Unspecified atrial fibrillation; E07.9 Disorder of thyroid, unspecified; I12.9 Hypertensive chronic kidney disease with stage 1 through stage 4 chronic kidney disease, or unspecified chronic kidney disease; N18.9 Chronic kidney disease, unspecified; F41.9 Anxiety disorder, unspecified; Z99.2 Dependence on renal dialysis; Z87.891 Personal history of nicotine dependence; Z79.899 Other long term (current) drug therapy
CPT/HCPCS: 70450; 71250; 72125; 72128; 72131; 74176; 99284

== ENCOUNTER → 2022-08-12 | Outpatient (CLI) | payer MEDICARE, BC | END | disposition home or self-care (01) | LOC: LABWHC1 11:25 | PROVIDERS: ATTEND Internal Medicine Endocrinology, Diabetes & Metabolism | DX: E03.8 Other specified hypothyroidism (principal) | CPT/HCPCS: 36415; 84443 ==

== ENCOUNTER → 2022-10-12 | Outpatient (CLI) | payer BC, MEDICARE | END | disposition home or self-care (01) | LOC: LABWHC1 12:46 | PROVIDERS: ATTEND Internal Medicine Endocrinology, Diabetes & Metabolism | DX: E03.8 Other specified hypothyroidism (principal) | CPT/HCPCS: 36415; 84443 ==

== ENCOUNTER → 2022-11-11 | Outpatient (CLI) | payer BC, MEDICARE | END | disposition home or self-care (01) | LOC: LABWHC1 13:47 | PROVIDERS: ATTEND Internal Medicine Endocrinology, Diabetes & Metabolism | DX: E03.8 Other specified hypothyroidism (principal) | CPT/HCPCS: 36415; 84443 ==

== ENCOUNTER 2022-11-26 09:27 | Day surgery (SDC) | payer MEDICARE, BC ==
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
[2022-11-26 09:59] VITALS: RESP 16; TEMP 97.3
[2022-11-26] MEDS ORDERED: SODIUM CHLORIDE 0.9% 1,000 ML IV ONE (09:59)
[2022-11-26] MEDS ORDERED: LACTATED RINGERS 1,000 ML IV SCH (10:17)
[2022-11-26] MEDS ORDERED: PROPOFOL 10 MG/ML 20 ML VIAL IV ONE (11:33)
[2022-11-26] MEDS ORDERED: LIDOCAINE 2% INJ 20 MG/ML (2 ML VIAL) ONE (11:33)
--- NOTE | 2022-11-26 12:47 | P.PCN ---
Date of Procedure: 11/26/22 Description of Procedure: PREOPERATIVE DIAGNOSIS: Colonoscopy screening Transplant list candidate POSTOPERATIVE DIAGNOSIS: Tubular adenoma rectum Tubular adenoma transverse colon Tubular adenoma ascending colon Tubular adenoma cecum Sigmoid diverticulosis OPERATION: Colonoscopy to the ileocecal valve and appendiceal orifice, cecum Colonoscopy with hot snare polypectomy SURGEON: Jolanta Carrera MD. ANESTHESIA: MAC. INDICATIONS: The patient is an 67-year-old male who presents for colonoscopy screening. Last colonoscopy 5 years. Benefits and risks were described and informed consent was obtained. DESCRIPTION OF PROCEDURE: The patient had undergone Sutab prep. The patient had been brought into the operating room and laid in the left lateral decubitus position. After adequate intravenous sedation, the rectum was examined with 2% lidocaine jelly. The prostate was unremarkable. External hemorrhoids were encountered. The rectal tone was within normal limits. No lesions were palpated in the rectal vault. An Olympus colonoscope was advanced until the cecum, ileocecal valve and appe ndiceal orifice were clearly viewed. The prep was good. Sigmoid diverticulosis was encountered. Colonic polyps were found and removed. No evidence of focal colitis was found. Retroflexion of the scope demonstrated grade 2 internal hemorrhoids without active bleeding or inflammation. The colon was desufflated. The patient had tolerated the procedure well. Withdrawal time was over 6 minutes. FINDINGS: Aronchick preparation quality scale 2 (1-5) Internal hemorrhoids, grade 2 External hemorrhoids, grade 2. No arteriovenous malformations. Sigmoid diverticulosis Removal of 7 polyps: - Snare polypectomy at a rectal 4, 5 to 6 mm tubulovillous adenoma - Snare polypectomy at transverse colon, 4 mm flat villous adenoma - Snare polypectomy at cecum, 5 mm flat villous adenoma - Snare polypectomy at ascending colon, 6 mm tubulovillous adenoma No focal colitis. RECOMMENDATIONS: Given severity of tubular adenomas, recommend repeat colonoscopy 1 year, 2023 Plan - Discharge Summary Discharge Rx Participant: No New Discharge Prescriptions: Continue PARoxetine [Paxil] 20 mg PO HS Warfarin [Coumadin] 2.5 mg PO DAILY Febuxostat [Uloric] 40 mg PO HS Renal Multivitamin 1 tab PO DAILY Cinacalcet [Sensipar] 90 mg PO HS Sevelamer Carbonate 800 mg PO TID-W/MEALS Acetaminophen Tab [Tylenol] 500 mg PO Q6H PRN #30 tablet PRN Reason: Pain Metoprolol Succ(Unknown) 50 mg PO DAILY Levothyroxine Sodium [Synthroid] 300 mcg PO DAILY Discharge Medication List PARoxetine [Paxil] 20 mg PO HS 05/02/14 [History] Warfarin [Coumadin] 2.5 mg PO DAILY 05/02/14 [History] Febuxostat [Uloric] 40 mg PO HS 02/03/18 [History] Cinacalcet [Sensipar] 90 mg PO HS 06/29/19 [History] Renal Multivitamin 1 tab PO DAILY 06/29/19 [History] Sevelamer Carbonate 800 mg PO TID-W/MEALS 12/21/19 [History] Acetaminophen Tab [Tylenol] 500 mg PO Q6H PRN #30 tablet 12/27/19 [Rx] Levothyroxine Sodium [Synthroid] 300 mcg PO DAILY 11/24/22 [History] Metoprolol Succ(Unknown) 50 mg PO DAILY 11/24/22 [History] Follow up Appointment(s)/Referral(s): Jolanta Carrera MD [STAFF PHYSICIAN] - As Needed Patient Instructions/Handouts: Diverticulosis Diet (GEN), Colorectal Polyps (GEN) Activity/Diet/Wound Care/Special Instructions: Repeat colonoscopy one year, 2023 Discharge Disposition: HOME SELF-CARE
[2022-11-26 12:55] VITALS: BP 154/90; PULSE 75
== END 2022-11-26 13:25 | disposition home or self-care (01) ==
LOC: ORWHC2ENDO 09:27
PROVIDERS: ATTEND Surgery Plastic and Reconstructive Surgery
DX: Z12.11 Encounter for screening for malignant neoplasm of colon (principal); D12.3 Benign neoplasm of transverse colon; D12.2 Benign neoplasm of ascending colon; D12.0 Benign neoplasm of cecum; K57.30 Diverticulosis of large intestine without perforation or abscess without bleeding; K64.1 Second degree hemorrhoids; K64.4 Residual hemorrhoidal skin tags; I48.91 Unspecified atrial fibrillation; I12.0 Hypertensive chronic kidney disease with stage 5 chronic kidney disease or end stage renal disease; E07.9 Disorder of thyroid, unspecified; N18.6 End stage renal disease; Z99.2 Dependence on renal dialysis; Z90.49 Acquired absence of other specified parts of digestive tract; Z87.891 Personal history of nicotine dependence; Z79.01 Long term (current) use of anticoagulants; Z79.890 Hormone replacement therapy
CPT/HCPCS: 88305; 84132; 45385; J2704; J2001

== ENCOUNTER → 2023-01-21 | Outpatient (CLI) | payer MEDICARE, BC | END | disposition home or self-care (01) | LOC: LABWHC1 11:30 | PROVIDERS: ATTEND Internal Medicine Endocrinology, Diabetes & Metabolism | DX: E03.8 Other specified hypothyroidism (principal) | CPT/HCPCS: 36415; 84443 ==

== ENCOUNTER → 2023-07-28 | Outpatient (CLI) | payer OTHER, MEDICARE, BC | END | disposition home or self-care (01) | LOC: LABWHC1 14:22 | PROVIDERS: ATTEND Internal Medicine Endocrinology, Diabetes & Metabolism | DX: E03.8 Other specified hypothyroidism (principal) | CPT/HCPCS: 36415; 84443 ==

== ENCOUNTER → 2023-10-29 | Outpatient (CLI) | payer MEDICARE, BC | END | disposition home or self-care (01) | LOC: LABWHC1 11:56 | PROVIDERS: ATTEND Internal Medicine Endocrinology, Diabetes & Metabolism | DX: E03.8 Other specified hypothyroidism (principal) | CPT/HCPCS: 36415; 84443 ==

== ENCOUNTER → 2023-12-20 | Outpatient (CLI) | payer MEDICARE, BC | END | disposition home or self-care (01) | LOC: LABWHC1 13:27 | PROVIDERS: ATTEND Internal Medicine Endocrinology, Diabetes & Metabolism | DX: E03.8 Other specified hypothyroidism (principal) | CPT/HCPCS: 36415; 84443 ==

== ENCOUNTER → 2024-01-14 | Outpatient (CLI) | payer MEDICARE, BC | END | disposition home or self-care (01) | LOC: LABWHC1 09:35 | PROVIDERS: ATTEND Internal Medicine Endocrinology, Diabetes & Metabolism | DX: E03.8 Other specified hypothyroidism (principal) | CPT/HCPCS: 36415; 84443 ==

== ENCOUNTER 2024-02-03 10:49 | Day surgery (SDC) | payer MEDICARE, BC ==
[2024-01-31 15:57] VITALS: BMI 25.7
--- NOTE | 2024-02-03 07:46 | P.GSHP ---
History of Present Illness H&P Date: 02/03/24 CHIEF COMPLAINT: GERD and colon screen HISTORY OF PRESENT ILLNESS: The patient is a 68-year-old male who presents with gastroesophageal reflux disease and need for colon screen. Upper and lower endoscopy were offered for further evaluation and management. PAST MEDICAL HISTORY: Please see list. PAST SURGICAL HISTORY: Please see list. MEDICATIONS: Please see list. ALLERGIES: Please see list. SOCIAL HISTORY: No illicit drug use FAMILY HISTORY: No reports of Crohn disease or ulcerative colitis. REVIEW OF ORGAN SYSTEMS: CONSTITUTIONAL: No reports of fevers or chills. GI: Denies any blood in stools or constipation. PHYSICAL EXAM: VITAL SIGNS: Stable GENERAL: Well-developed pleasant in no acute distress. HEENT: No scleral icterus. Extraocular movements grossly intact. Moist buccal mucosa. NECK: Supple without lymphadenopathy. CHEST: Unlabored respirations. Equal bilateral excursions. CARDIOVASCULAR: Regular rate and rhythm. Distal 2+ pulses. ABDOMEN: Soft, nondistended. MUSCULOSKELETAL: No clubbing, cyanosis, or edema. ASSESSMENT: 1. Gastroesophageal reflux disease 2. Colon screen. PLAN: 1. Recommend proceeding with an upper and lower endoscopy Past Medical History Past Medical History: Atrial Fibrillation, Dialysis, Eye Disorder, Hypertension, Renal Disease, Thyroid Disorder Additional Past Medical History / Comment(s): HEMODIALYSIS TREATMENT ,,Sat ON LIST FOR KIDNEY TRANSPLANT, POSSIBLE STROKE LEFT EYE, INJURY TO LEFT KIDNEY A CHILD AND KIDNEY REMOVED. HIATAL HERNIA, OCCASIONAL BACK PAIN. ANEMIA (HX OF IRON INFUSIONS in past) bulging eye surgery to correct it from thyroid issues History of Any Multi-Drug Resistant Organisms: None Reported Past Surgical History: Cholecystectomy, Hernia Repair Additional Past Surgical History / Comment(s): lt kidney removed (CHILD), rt arm HEMODIALYSIS fistula placed 04/11/18, COLONOSCOPY thyroidectomy, january 06 had surgery to left eye from thyroid, had eye placed back in socket Past Anesthesia/Blood Transfusion Reactions: No Reported Reaction Additional Past Anesthesia/Blood Transfusion Reaction / Comment(s): no blood transfusion Smoking Status: Former smoker - Past Family History Mother Family Medical History: No Reported History Medications and Allergies Home Medications Medication Instructions Recorded Confirmed Type PARoxetine [Paxil] 20 mg PO HS 05/02/14 01/31/24 History Warfarin [Coumadin] 2.5 mg PO DAILY 05/02/14 01/31/24 History Febuxostat [Uloric] 40 mg PO HS 02/03/18 01/31/24 History Cinacalcet [Sensipar] 90 mg PO HS 06/29/19 01/31/24 History Sevelamer Carbonate 800 mg PO TID-W/MEALS 12/21/19 01/31/24 History Acetaminophen Tab [Tylenol] 500 mg PO Q6H PRN #30 tablet 12/27/19 01/31/24 Rx Levothyroxine Sodium [Synthroid] 300 mcg PO DAILY 11/24/22 01/31/24 History Metoprolol Succinate (ER) [Toprol 50 mg PO DAILY 01/31/24 01/31/24 History Xl] Allergies Allergy/AdvReac Type Severity Reaction Status Date / Time No Known Allergies Allergy Verified 01/31/24 15:51
[2024-02-03] MEDS: IV FLUID CONTINUATION 1,000 ML IV ONE (11:04)
[2024-02-03 11:21] VITALS: TEMP 98
[2024-02-03] MEDS: LACTATED RINGERS 1,000 ML IV SCH (11:29)
[2024-02-03] MEDS ORDERED: LIDOCAINE 1% INJ 10MG/ML (20 ML MDV) ONE (11:46)
[2024-02-03] MEDS ORDERED: PROPOFOL 10 MG/ML 20 ML VIAL IV ONE (11:46)
--- NOTE | 2024-02-03 12:39 | P.PCN ---
Date of Procedure: 02/03/24 Description of Procedure: PREOPERATIVE DIAGNOSIS: Diaphragmatic hiatal hernia POSTOPERATIVE DIAGNOSIS: Gastroesophageal reflux disease with erosive esophagitis Esophageal ulcers Gastric ulcer with bleeding Duodenal polyps Gastritis. Diaphragmatic hiatal hernia, recurrent OPERATION: Esophagogastroduodenoscopy with biopsies along esophagus, antrum and duodenum SURGEON: Jolanta Carrera MD ANESTHESIA: MAC. INDICATIONS: The patient is a 68-year-old male who presents with hiatal hernia. Benefits and risks of the procedure were described. Informed consent was obtained. DESCRIPTION: The patient was brought into the endoscopy suite and laid in the left lateral decubitus position. An Olympus gastroscope was passed along the posterior oropharynx down to the distal esophagus where the squamocolumnar junction was encountered at 40 cm from the incisors. The stomach was entered and no bile reflux was found. Additional findings are listed below. Biopsies with cold forceps were obtained of the antrum. The first through third portion of the duodenum was examined. Retroflexion of the scope confirmed Hill grade 3 lower esophageal valve. The squamocolumnar junction demonstrated LA grade C erosive esophagitis. The stomach was desufflated. The patient tolerated the procedure well. FINDINGS: Squamocolumnar junction 40 cm from the incisors. Diaphragmatic hiatus at 43 cm. Hiatal hernia, 3 cm, sliding-type Hill grade 3 lower esophageal valve. LA grade C erosive esophagitis. Biopsies obtained. Gastric ulcer along gastric cardia with bleeding. Gastritis Duodenum polyps, first portion Biopsies obtained of the duodenum. Chronic gastritis with biopsies obtained. RECOMMENDATIONS: Pepcid 40 mg daily started
--- NOTE | 2024-02-03 12:41 | P.PCN ---
Date of Procedure: 02/03/24 Description of Procedure: PREOPERATIVE DIAGNOSIS: Personal history of colon polyps End-stage renal disease, transplant candidate Colonoscopy screening POSTOPERATIVE DIAGNOSIS: Tubular adenoma cecum Sigmoid diverticulosis Internal hemorrhoids, grade 2 OPERATION: Colonoscopy to the ileocecal valve and appendiceal orifice, cecum Colonoscopy with hot snare polypectomy SURGEON: Jolanta Carrera MD. ANESTHESIA: MAC. INDICATIONS: The patient is an 68-year-old female who presents personal history of colon polyps. Last colonoscopy 5 years. Benefits and risks were described and informed consent was obtained. DESCRIPTION OF PROCEDURE: The patient had undergone GoLytely prep. The patient had been brought into the operating room and laid in the left lateral decubitus position. After adequate intravenous sedation, the rectum was examined with 2% lidocaine jelly. The prostate was unremarkable. External hemorrhoids were encountered. The rectal tone was within normal limits. No lesions were palpated in the rectal vault. An Olympus colonoscope was advanced until the cecum, ileocecal valve and appendiceal orifice were clearly viewed. The prep was good. Sigmoid diverticulosis was encountered. Colonic polyps were found and removed. No evidence of focal colitis was found. Retroflexion of the scope demonstrated grade 2 internal hemorrhoids without active bleeding or inflammation. The colon was desufflated. The patient had tolerated the procedure well. Withdrawal time was over 6 minutes. FINDINGS: Aronchick preparation quality scale 2 (1-5) Internal hemorrhoids, grade 2 External hemorrhoids, grade 2. No arteriovenous malformations. Sigmoid diverticulosis, mild Removal of 1 polyps: - Snare polypectomy ileocecal valve/cecum, 6 mm tubulovillous adenoma No focal colitis. RECOMMENDATIONS: Repeat colonoscopy 3 years, 2026 Plan - Discharge Summary Discharge Rx Participant: No New Discharge Prescriptions: New Famotidine [Pepcid] 40 mg PO DAILY #14 tablet Continue PARoxetine [Paxil] 20 mg PO HS Warfarin [Coumadin] 2.5 mg PO DAILY Febuxostat [Uloric] 40 mg PO HS Cinacalcet [Sensipar] 90 mg PO HS Sevelamer Carbonate 800 mg PO TID-W/MEALS Acetaminophen Tab [Tylenol] 500 mg PO Q6H PRN #30 tablet PRN Reason: Pain Levothyroxine Sodium [Synthroid] 300 mcg PO DAILY Metoprolol Succinate (ER) [Toprol XL] 50 mg PO DAILY Discharge Medication List PARoxetine [Paxil] 20 mg PO HS 05/02/14 [History] Warfarin [Coumadin] 2.5 mg PO DAILY 05/02/14 [History] Febuxostat [Uloric] 40 mg PO HS 02/03/18 [History] Cinacalcet [Sensipar] 90 mg PO HS 06/29/19 [History] Sevelamer Carbonate 800 mg PO TID-W/MEALS 12/21/19 [History] Acetaminophen Tab [Tylenol] 500 mg PO Q6H PRN #30 tablet 12/27/19 [Rx] Levothyroxine Sodium [Synthroid] 300 mcg PO DAILY 11/24/22 [History] Metoprolol Succinate (ER) [Toprol XL] 50 mg PO DAILY 01/31/24 [History] Famotidine [Pepcid] 40 mg PO DAILY #14 tablet 02/03/24 [Rx] Follow up Appointment(s)/Referral(s): Jolanta Carrera MD [STAFF PHYSICIAN] - 02/22/24 11:15 am Patient Instructions/Handouts: Peptic Ulcer (DC), Hiatal Hernia (DC), Colorectal Polyps (GEN), Diverticulosis Diet (GEN) Activity/Diet/Wound Care/Special Instructions: Repeat colonoscopy in 3 years, 2026 Discharge Disposition: HOME SELF-CARE
[2024-02-03 12:48] VITALS: BP 116/78; PULSE 63; RESP 18
== END 2024-02-03 13:06 | disposition home or self-care (01) ==
LOC: ORWHC2ENDO 10:49
PROVIDERS: ATTEND Surgery Plastic and Reconstructive Surgery
DX: Z12.11 Encounter for screening for malignant neoplasm of colon (principal); D12.0 Benign neoplasm of cecum; K26.3 Acute duodenal ulcer without hemorrhage or perforation; K22.10 Ulcer of esophagus without bleeding; K31.7 Polyp of stomach and duodenum; K21.9 Gastro-esophageal reflux disease without esophagitis; K64.1 Second degree hemorrhoids; E78.5 Hyperlipidemia, unspecified; K57.30 Diverticulosis of large intestine without perforation or abscess without bleeding; N18.6 End stage renal disease; I12.0 Hypertensive chronic kidney disease with stage 5 chronic kidney disease or end stage renal disease; Z86.39 Personal history of other endocrine, nutritional and metabolic disease; Z98.890 Other specified postprocedural states; Z90.49 Acquired absence of other specified parts of digestive tract; Z87.891 Personal history of nicotine dependence; Z79.890 Hormone replacement therapy; Z79.01 Long term (current) use of anticoagulants; Z79.899 Other long term (current) drug therapy
CPT/HCPCS: 88305; 84132; 45385; 43239; J2001; J2704

== ENCOUNTER 2024-09-15 07:41 | Emergency (ER) | payer MEDICARE, BC ==
[2024-09-15 07:53] VITALS: RESP 18
--- NOTE | 2024-09-15 08:08 | ED ---
General Adult HPI - General Chief complaint: GI Bleed Stated complaint: poss gi bleed Time Seen by Provider: 09/15/24 07:43 Source: patient, RN notes reviewed, old records reviewed Mode of arrival: EMS Limitations: no limitations - History of Present Illness Initial comments: 68-year-old male who is 5 weeks status post renal transplant presenting with m elanotic stool. Patient had several episodes of diarrhea and small amount of vomiting which was reported as nonbloody. He has had dark stool over the past 2 days and was started on Eliquis for atrial fibrillation 3 days prior. No fever. No significant abdominal pain. He has been making urine. Transplant was performed at [facility] in [place] - Related Data Home Medications Medication Instructions Recorded Confirmed PARoxetine [Paxil] 20 mg PO HS 05/02/14 02/03/24 Warfarin [Coumadin] 2.5 mg PO DAILY 05/02/14 02/03/24 Febuxostat [Uloric] 40 mg PO HS 02/03/18 02/03/24 Cinacalcet [Sensipar] 90 mg PO HS 06/29/19 02/03/24 Sevelamer Carbonate 800 mg PO TID-W/MEALS 12/21/19 02/03/24 Levothyroxine Sodium [Synthroid] 300 mcg PO DAILY 11/24/22 02/03/24 Metoprolol Succinate (ER) [Toprol 50 mg PO DAILY 01/31/24 02/03/24 XL] Previous Rx's Medication Instructions Recorded Acetaminophen Tab [Tylenol] 500 mg PO Q6H PRN #30 tablet 12/27/19 Famotidine [Pepcid] 40 mg PO DAILY #14 tablet 02/03/24 Allergies Allergy/AdvReac Type Severity Reaction Status Date / Time No Known Allergies Allergy Verified 02/03/24 11:27 Review of Systems ROS Statement: Those systems with pertinent positive or pertinent negative responses have been documented in the HPI. ROS Other: All systems not noted in ROS Statement are negative. Past Medical History Past Medical History: Atrial Fibrillation, Dialysis, Eye Disorder, Hypertension, Renal Disease, Thyroid Disorder Additional Past Medical History / Comment(s): HEMODIALYSIS TREATMENT ,,Sat ON LIST FOR KIDNEY TRANSPLANT, POSSIBLE STROKE LEFT EYE, INJURY TO LEFT KIDNEY A CHILD AND KIDNEY REMOVED. HIATAL HERNIA, OCCASIONAL BACK PAIN. ANEMIA (HX OF IRON INFUSIONS in past) bulging eye surgery to correct it from thyroid issues History of Any Multi-Drug Resistant Organisms: None Reported Past Surgical History: Cholecystectomy, Hernia Repair Additional Past Surgical History / Comment(s): lt kidney removed (CHILD), rt arm HEMODIALYSIS fistula placed 04/11/18, COLONOSCOPY thyroidectomy, january 06 had surgery to left eye from thyroid, had eye placed back in socket, kidney transplant Past Anesthesia/Blood Transfusion Reactions: No Reported Reaction Additional Past Anesthesia/Blood Transfusion Reaction / Comment(s): no blood transfusion Past Psychological History: Anxiety Smoking Status: Former smoker Past Alcohol Use History: None Reported Past Drug Use History: None Reported - Past Family History Mother Family Medical History: No Reported History General Exam Limitations: no limitations General appearance: alert, in no apparent distress Head exam: Present: atraumatic, normocephalic Eye exam: Present: normal appearance, PERRL ENT exam: Present: normal exam Neck exam: Present: normal inspection. Absent: tenderness, meningismus Respiratory exam: Present: normal lung sounds bilaterally. Absent: respiratory distress, wheezes Cardiovascular Exam: Present: regular rate, irregular rhythm GI/Abdominal exam: Present: soft, distended, other (Mild erythema over the proximal portion of right lower quadrant incision). Absent: tenderness, guarding, rebound Rectal exam: Present: black stool Extremities exam: Present: normal inspection, normal capillary refill Neurological exam: Present: alert, oriented X3, CN II-XII intact. Absent: motor sensory deficit Psychiatric exam: Present: normal affect, normal mood Skin exam: Present: pallor Course Vital Signs 09/15/24 09/15/24 07:48 08:44 Temperature 97.9 F Pulse Rate 87 97 Respiratory 18 18 Rate Blood Pressure 100/58 82/62 O2 Sat by Pulse 100 100 Oximetry Medical Decision Making - Medical Decision Making Was pt. sent in by a medical professional or institution (, PA, DEHYDRATING PRESS OPERATOR, urgent care, hospital, or alf...) When possible be specific @ -No Did you speak to anyone other than the patient for history (EMS, parent, family, police, friend...)? What history was obtained from this source @ -Paramedics as well as patient's family members able to give complete history Did you review nursing and triage notes (agree or disagree)? Why? @ -I reviewed and agree with nursing and triage notes Were old charts reviewed (outside hosp., previous admission, EMS record, old EKG, old radiological studies, urgent care reports/EKG's, alf records)? Report findings @ -No old charts were reviewed Differential GI Bleed: Esophageal varices, aortoenteric fistula, Kesha-Hendrix, gastritis, peptic ulcer disease, diverticulosis, inflammatory bowel disease, hemorrhoids, fissure, colitis, malignancy, Meckel's diverticulum, this is not meant to be an all- inclusive list. EKG interpreted by me (3pts min.). @Atrial fibrillation, rate of 9, QRS duration 84, QTc 368 X-rays interpreted by me (1pt min.). @ -None done CT interpreted by me (1pt min.). @ -None done U/S interpreted by me (1pt. min.). @ -None done What testing was considered but not performed or refused? (CT, X-rays, U/S, labs)? Why? @ -None What meds were considered but not given or refused? Why? @ -None Did you discuss the management of the patient with other professionals (ramsey nuno i.e. , PA, DEHYDRATING PRESS OPERATOR, lab, RT, psych nurse, medical social consultant, disability insurance hearing officer, teacher, chief security officer, block and case maker)? Give summary @ -[I was able to speak with the transfer team at [facility] regarding transfer Dr. Talavera, will accept, I was also able to speak with Dr. Alva the patient's transplant physician he does recommend 1 L crystalloid and magnesium replacement, No blood transfusion at this time and no Eliquis reversal at this time. Was smoking cessation discussed for >3mins.? @ -No Was critical care preformed (if so, how long)? @Yes 35 Were there social determinants of health that impacted care today? How? (Homelessness, low income, unemployed, alcoholism, drug addiction, transpor tation, low edu. Level, literacy, decrease access to med. care, fdc, rehab)? @ -No Was there de-escalation of care discussed even if they declined (Discuss DNR or withdrawal of care, Hospice)? DNR status @ -No What co-morbidities impacted this encounter? (DM, HTN, Smoking, COPD, CAD, Cancer, CVA, ARF, Chemo, Hep., AIDS, mental health diagnosis, sleep apnea, morbid obesity)? @ -Atrial fibrillation, 5 weeks postop renal transplant Was patient admitted / discharged? Hospital course, mention meds given and route, prescriptions, significant lab abnormalities, going to OR and other pertinent info. @ -[68-year-old male who is 5 weeks postop renal transplant at [facility] presenting with melanotic stool. Stool is heme positive. His hemoglobin is 8.8. His BUN is 40 and creatinine is 1.2. He has normal white blood cell count, normal platelets. I discussed the care of this patient with the transplant physician Dr. Alva, and Dr. Sadaf alicea for the emergency department at [facility]. Patient given gentle IV hydration, magnesium replacement and 80 mg Protonix. He will be transferred for continuity of care and gastrointestinal consultation to [facility] in [place]. Undiagnosed new problem with uncertain prognosis?. @ -No Drug Therapy requiring intensive monitoring for toxicity (Heparin, Nitro, Insulin, Cardizem)? @ -No Were any procedures done? @ -No Diagnosis/symptom? @ -Suspected upper GI bleed, melanotic stool, recent renal transplant Acute, or Chronic, or Acute on Chronic? @Acute Uncomplicated (without systemic symptoms) or Complicated (systemic symptoms)? @ -[Complicated Side effects of treatment? @ -No Exacerbation, Progression, or Severe Exacerbation? @ -No Poses a threat to life or bodily function? How? (Chest pain, [place], [place], pneumonia, PE, COPD, DKA, ARF, appy, cholecystitis, CVA, Diverticulitis, Homicidal, Suicidal, threat to staff... and all critical care pts) @ -Yes, GI bleed, hemorrhagic shock - Lab Data Result diagrams: 09/15/24 08:18 09/15/24 08:18 Lab Results 09/15/24 09/15/24 09/15/24 Range/Units 08:18 08:18 08:21 WBC 6.0 (3.8-10.6) k/uL RBC 2.89 L (4.30-5.90) m/uL Hgb 8.8 L (13.0-17.5) gm/dL Hct 29.9 L (39.0-53.0) % MCV 103.2 H (80.0-100.0) fL MCH 30.6 (25.0-35.0) pg MCHC 29.6 L (31.0-37.0) g/dL RDW 18.2 H (11.5-15.5) % Plt Count 429 (150-450) k/uL MPV 7.2 Neutrophils % 85 % Lymphocytes % 6 % Monocytes % 7 % Eosinophils % 0 % Basophils % 0 % Neutrophils # 5.1 (1.3-7.7) k/uL Lymphocytes # 0.4 L (1.0-4.8) k/uL Monocytes # 0.4 (0-1.0) k/uL Eosinophils # 0.0 (0-0.7) k/uL Basophils # 0.0 (0-0.2) k/uL Hypochromasia Marked Anisocytosis Slight Macrocytosis Moderate Sodium 136 L (137-145) mmol/L Potassium 5.5 H (3.5-5.1) mmol/L Chloride 108 H (98-107) mmol/L Carbon Dioxide 16 L (22-30) mmol/L Anion Gap 12 mmol/L BUN 40 H (9-20) mg/dL Creatinine 1.23 (0.66-1.25) mg/dL Est GFR (CKD-EPI)AfAm 70 (>60 ml/min/1.73 sqM) Est GFR (CKD-EPI)NonAf 61 (>60 ml/min/1.73 sqM) Glucose 109 H (74-99) mg/dL Calcium 10.3 H (8.4-10.2) mg/dL Magnesium 1.2 L (1.6-2.3) mg/dL Total Bilirubin 0.4 (0.2-1.3) mg/dL AST 23 (17-59) U/L ALT 18 (4-49) U/L Alkaline Phosphatase 143 H (38-126) U/L Total Protein 6.1 L (6.3-8.2) g/dL Albumin 3.8 (3.5-5.0) g/dL Stool Occult Blood POSITIVE (Negative) Blood Type Recheck Bld Type Recheck Status Spec Expiration Date 09/15/24 Range/Units 08:30 WBC (3.8-10.6) k/uL RBC (4.30-5.90) m/uL Hgb (13.0-17.5) gm/dL Hct (39.0-53.0) % MCV (80.0-100.0) fL MCH (25.0-35.0) pg MCHC (31.0-37.0) g/dL RDW (11.5-15.5) % Plt Count (150-450) k/uL MPV Neutrophils % % Lymphocytes % % Monocytes % % Eosinophils % % Basophils % % Neutrophils # (1.3-7.7) k/uL Lymphocytes # (1.0-4.8) k/uL Monocytes # (0-1.0) k/uL Eosinophils # (0-0.7) k/uL Basophils # (0-0.2) k/uL Hypochromasia Anisocytosis Macrocytosis Sodium (137-145) mmol/L Potassium (3.5-5.1) mmol/L Chloride (98-107) mmol/L Carbon Dioxide (22-30) mmol/L Anion Gap mmol/L BUN (9-20) mg/dL Creatinine (0.66-1.25) mg/dL Est GFR (CKD-EPI)AfAm (>60 ml/min/1.73 sqM) Est GFR (CKD-EPI)NonAf (>60 ml/min/1.73 sqM) Glucose (74-99) mg/dL Calcium (8.4-10.2) mg/dL Magnesium (1.6-2.3) mg/dL Total Bilirubin (0.2-1.3) mg/dL AST (17-59) U/L ALT (4-49) U/L Alkaline Phosphatase (38-126) U/L Total Protein (6.3-8.2) g/dL Albumin (3.5-5.0) g/dL Stool Occult Blood (Negative) Blood Type Recheck No Previous Record Bld Type Recheck Status CABO Indicated Spec Expiration Date 09/18/20242335 Critical Care Time Critical Care Time: Yes Total Critical Care Time: 35 Disposition Clinical Impression: Melena, Renal transplant, status post Disposition: OTHER INSTITUTION NOT DEFINED Condition: Serious Is patient prescribed a controlled substance at d/c from ED?: No Referrals: Radha Emanuel MD [Primary Care Provider] - 1-2 days Time of Disposition: 09:01 - Out of Hospital Transfer - Req. Specs Out of Hospital Transfer - Requested Specifics: Other Emergency Center (Transfer to [facility] in [place])
[2024-09-15 08:32] LABS: Anisocytosis Slight; Basophils % (A) 0 %; Eosinophils % (A) 0 %; HCT 29.9 % (39.0-53.0); HGB 8.8 gm/dL (13.0-17.5); Hypochromasia Marked; Lymphocytes # (A) 0.4 k/uL (1.0-4.8); Lymphocytes % (A) 6 %; MCH 30.6 pg (25.0-35.0); MCHC 29.6 g/dL (31.0-37.0); MCV 103.2 fL (80.0-100.0); Macrocytosis Moderate; Mean Platelet Volume 7.2; Monocytes # (A) 0.4 k/uL (0-1.0); Monocytes % (A) 7 %; Neutrophils # (A) 5.1 k/uL (1.3-7.7); Neutrophils % (A) 85 %; Platelet Count 429 k/uL (150-450); RBC 2.89 m/uL (4.30-5.90); RDW 18.2 % (11.5-15.5)
[2024-09-15 08:40] LABS: ALT 18 U/L (4-49); AST 23 U/L (17-59); African American GFR (CKD) 70 (>60 ml/min/1.73 sqM); Albumin 3.8 g/dL (3.5-5.0); Alkaline Phosphatase 143 U/L (38-126); Anion Gap 12 mmol/L; Blood Urea Nitrogen 40 mg/dL (9-20); Calcium 10.3 mg/dL (8.4-10.2); Carbon Dioxide 16 mmol/L (22-30); Chloride 108 mmol/L (98-107); Glucose 109 mg/dL (74-99); Magnesium 1.2 mg/dL (1.6-2.3); Non-African American GFR(CKD) 61 (>60 ml/min/1.73 sqM); Potassium 5.5 mmol/L (3.5-5.1); Sodium 136 mmol/L (137-145); Total Bilirubin 0.4 mg/dL (0.2-1.3); Total Protein 6.1 g/dL (6.3-8.2)
[2024-09-15] MEDS: PANTOPRAZOLE 40 MG/10 ML VIAL IVP STA (08:40)
[2024-09-15] MEDS: SODIUM CHLORIDE 0.9% 500 ML 500 ML IV ONE ×2 (08:43→09:40)
[2024-09-15 09:04] LABS: Prothrombin Time 11.2 sec (10.0-12.5)
[2024-09-15 09:05] LABS: Partial Thromboplastin Time 19.2 sec (22.0-30.0)
[2024-09-15] MEDS: MAGNESIUM SULFATE-D5W PMX 1 GM in DEXTROSE/WATER 1 100ML.BAG IVPB ONE (09:51)
[2024-09-15 09:56] VITALS: TEMP 97.8
[2024-09-15 10:04] VITALS: BP 91/54; PULSE 78
== END 2024-09-15 10:02 | disposition other institution (70) ==
LOC: EC 07:41
DX: K92.1 Melena (principal); Z94.0 Kidney transplant status; Z98.890 Other specified postprocedural states; I48.91 Unspecified atrial fibrillation; Z87.891 Personal history of nicotine dependence
CPT/HCPCS: 36415; 93005; 86900; 86901; 80053; 83605; 83735; 85025; 85610; 85730; 86850; 82272; 99291; 96365; 96375; J3475; J2470

== ENCOUNTER 2024-10-26 10:13 | Day surgery (SDC) | payer MEDICARE, BC ==
[2024-10-26 10:34] VITALS: BMI 23.3
[2024-10-26 10:49] VITALS: TEMP 97.3
[2024-10-26] MEDS: IV FLUID CONTINUATION 1,000 ML IV ONE (10:52)
[2024-10-26] MEDS: LACTATED RINGERS 1,000 ML IV SCH (10:53)
[2024-10-26] MEDS ORDERED: LIDOCAINE 1% INJ 10MG/ML (20 ML MDV) ONE (11:02)
[2024-10-26] MEDS ORDERED: PROPOFOL 10 MG/ML 20 ML VIAL IV ONE (11:02)
--- NOTE | 2024-10-26 11:24 | P.GSHP ---
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 Upper endoscopy was offered for further evaluation and management. PAST MEDICAL HISTORY: Please see list. PAST SURGICAL HISTORY: Please see list. MEDICATIONS: Please see list. ALLERGIES: Please see list. SOCIAL HISTORY: No illicit drug use FAMILY HISTORY: No reports of Crohn disease or ulcerative colitis. REVIEW OF ORGAN SYSTEMS: CONSTITUTIONAL: No reports of fevers or chills. GI: Denies any blood in stools or constipation. PHYSICAL EXAM: VITAL SIGNS: Stable GENERAL: Well-developed and pleasant in no acute distress. HEENT: No scleral icterus. Extraocular movements grossly intact. Moist buccal mucosa. NECK: Supple without lymphadenopathy. CHEST: Unlabored respirations. Equal bilateral excursions. CARDIOVASCULAR: Regular rate and rhythm. Distal 2+ pulses. ABDOMEN: Soft, nondistended. MUSCULOSKELETAL: No clubbing, cyanosis, or edema. ASSESSMENT: 1. Upper GI bleed PLAN: 1. Recommend proceeding with an upper endoscopy Past Medical History Past Medical History: Atrial Fibrillation, Eye Disorder, Hypertension, Thyroid Disorder Additional Past Medical History / Comment(s): PREVIOUSLY DID DIAYLSIS PRE TRANSPLANT. POSSIBLE STROKE LEFT EYE, INJURY TO LEFT KIDNEY A CHILD AND KIDNEY REMOVED. HIATAL HERNIA, OCCASIONAL BACK PAIN. ANEMIA (HX OF IRON INFUSIONS in past) bulging eye surgery to correct it from thyroid issues History of Any Multi-Drug Resistant Organisms: None Reported Past Surgical History: Cholecystectomy, Hernia Repair Additional Past Surgical History / Comment(s): lt kidney removed (CHILD), rt arm HEMODIALYSIS fistula placed 04/11/18, COLONOSCOPY thyroidectomy, january 06 had surgery to left eye from thyroid, had eye placed back in socket, RIGHT KIDNEY TRANSPLANT 07/2024 Past Anesthesia/Blood Transfusion Reactions: No Reported Reaction Additional Past Anesthesia/Blood Transfusion Reaction / Comment(s): no blood transfusion Past Psychological History: Anxiety Smoking Status: Former smoker Past Alcohol Use History: None Reported Past Drug Use History: None Reported - Past Family History Mother Family Medical History: No Reported History Medications and Allergies Home Medications Medication Instructions Recorded Confirmed Type Levothyroxine Sodium [Synthroid] 150 mcg PO DAILY 11/24/22 10/26/24 History Metoprolol Succinate (ER) [Toprol 25 mg PO BID 01/31/24 10/26/24 History XL] Latanoprost Ophth [Xalatan 0.005%] 1 drop OP DAILY 10/26/24 10/26/24 History Mirtazapine 1 tab PO DAILY 10/26/24 10/26/24 History Sucralfate [Carafate] 1 gm PO BID #30 tablet 10/26/24 Rx Sulfamethoxazole/Trimethoprim 2 tab PO BID 10/26/24 10/26/24 History [Bactrim SS 400-80 mg] Tacrolimus [Prograf] 1 cap PO BID 10/26/24 10/26/24 History Venlafaxine HCl [Effexor XR] 1 tab PO DAILY 10/26/24 10/26/24 History mycophenolate mofetiL [Cellcept] 1 tab PO DAILY 10/26/24 10/26/24 History predniSONE 1 tab PO DAILY 10/26/24 10/26/24 History valGANciclovir [Valcyte] 1 tab PO DAILY 10/26/24 10/26/24 History Allergies Allergy/AdvReac Type Severity Reaction Status Date / Time No Known Allergies Allergy Verified 10/26/24 10:37 Surgical - Exam Vital Signs Temp Pulse Resp BP Pulse Ox 97.3 F L 86 16 118/70 99 10/26/24 10:48 10/26/24 10:48 10/26/24 10:48 10/26/24 10:48 10/26/24 10:48
--- NOTE | 2024-10-26 11:27 | P.PCN ---
Date of Procedure: 10/26/24 Description of Procedure: PREOPERATIVE DIAGNOSIS: History of upper GI bleed Renal allograft recipient Chronic anticoagulant use Diabetes type 2 End-stage renal disease POSTOPERATIVE DIAGNOSIS: Esophageal ulcer with bleeding Gastroparesis OPERATION: Esophagogastroduodenoscopy SURGEON: Jolanta Carrera MD ANESTHESIA: MAC. INDICATIONS: The patient is a 68-year-old male who presents with gastrointestinal bleeding. Benefits and risks of the procedure were described. Informed consent was obtained. DESCRIPTION: The patient was brought into the endoscopy suite and laid in the left lateral decubitus position. An Olympus gastroscope was passed along the posterior oropharynx down to the distal esophagus where the squamocolumnar junction was encountered at 38 cm from the incisors. The stomach was entered and no bile reflux was found. Additional findings are listed below. The first through third portion of the duodenum was examined and unremarkable. Retroflexion of the scope confirmed Hill grade 2 lower esophageal valve. The squamocolumnar junction demonstrated LA grade B erosive esophagitis. The stomach was desufflated. The patient tolerated the procedure well. FINDINGS: Squamocolumnar junction 38 cm from the incisors. Diaphragmatic hiatus at 38 cm. Moderate retained food consistent with gastroparesis Esophageal ulceration, distal third, 3 mm with bleeding/easily foreign Hill grade 2 lower esophageal valve. LA grade B erosive esophagitis. No active duodenitis. RECOMMENDATIONS: 1. Elevated risk for rebleed with chronic anticoagulant use from esophageal ulcer 2. Recommend Carafate 1 g twice daily for at least 2 weeks 3. Presence of gastroparesis I recommend small meals Plan - Discharge Summary Discharge Rx Participant: No New Discharge Prescriptions: New Sucralfate [Carafate] 1 gm PO BID #30 tablet Continue predniSONE 1 tab PO DAILY Mirtazapine 1 tab PO DAILY Latanoprost Ophth [Xalatan 0.005%] 1 drop OP DAILY Levothyroxine Sodium [Synthroid] 150 mcg PO DAILY Metoprolol Succinate (ER) [Toprol XL] 25 mg PO BID Tacrolimus [Prograf] 1 cap PO BID Venlafaxine HCl [Effexor XR] 1 tab PO DAILY valGANciclovir [Valcyte] 1 tab PO DAILY mycophenolate mofetiL [Cellcept] 1 tab PO DAILY Sulfamethoxazole/Trimethoprim [Bactrim SS 400-80 mg] 2 tab PO BID Discharge Medication List Levothyroxine Sodium [Synthroid] 150 mcg PO DAILY 11/24/22 [History] Metoprolol Succinate (ER) [Toprol XL] 25 mg PO BID 01/31/24 [History] Latanoprost Ophth [Xalatan 0.005%] 1 drop OP DAILY 10/26/24 [History] Mirtazapine 1 tab PO DAILY 10/26/24 [History] Sucralfate [Carafate] 1 gm PO BID #30 tablet 10/26/24 [Rx] Sulfamethoxazole/Trimethoprim [Bactrim SS 400-80 mg] 2 tab PO BID 10/26/24 [History] Tacrolimus [Prograf] 1 cap PO BID 10/26/24 [History] Venlafaxine HCl [Effexor XR] 1 tab PO DAILY 10/26/24 [History] mycophenolate mofetiL [Cellcept] 1 tab PO DAILY 10/26/24 [History] predniSONE 1 tab PO DAILY 10/26/24 [History] valGANciclovir [Valcyte] 1 tab PO DAILY 10/26/24 [History] Follow up Appointment(s)/Referral(s): Breanna Alva MD [REFERRING] - 1 Week Patient Instructions/Handouts: *Sur[facility] - (Anesthesia) Discharge Instructions Outpatient Surgery, Esophagitis (DC) Discharge Disposition: HOME SELF-CARE
[2024-10-26 11:41] VITALS: BP 120/77; PULSE 66; RESP 17
== END 2024-10-26 11:58 | disposition home or self-care (01) ==
LOC: ORWHC2ENDO 10:13
PROVIDERS: ATTEND Surgery Plastic and Reconstructive Surgery
DX: K22.11 Ulcer of esophagus with bleeding (principal); E11.43 Type 2 diabetes mellitus with diabetic autonomic (poly)neuropathy; K31.84 Gastroparesis; K44.9 Diaphragmatic hernia without obstruction or gangrene; K22.89 Other specified disease of esophagus; K21.00 Gastro-esophageal reflux disease with esophagitis, without bleeding; I48.91 Unspecified atrial fibrillation; E89.0 Postprocedural hypothyroidism; E78.5 Hyperlipidemia, unspecified; F41.9 Anxiety disorder, unspecified; Z94.0 Kidney transplant status; Z90.49 Acquired absence of other specified parts of digestive tract; Z87.448 Personal history of other diseases of urinary system; Z86.73 Personal history of transient ischemic attack (TIA), and cerebral infarction without residual deficits; Z79.899 Other long term (current) drug therapy; Z98.890 Other specified postprocedural states; Z79.890 Hormone replacement therapy; Z79.624 Long term (current) use of inhibitors of nucleotide synthesis; Z79.52 Long term (current) use of systemic steroids; Z79.621 Long term (current) use of calcineurin inhibitor; Z79.01 Long term (current) use of anticoagulants; Z87.891 Personal history of nicotine dependence
CPT/HCPCS: 43235; J2003; J2704

== ENCOUNTER → 2024-11-16 | Outpatient (CLI) | payer MEDICARE, BC ==
[2024-11-16 18:45] LABS: T4, Free (Free Thyroxine) 0.95 ng/dL (0.80-1.80)
== END | disposition home or self-care (01) ==
LOC: LABWHC1 11:30
PROVIDERS: ATTEND Internal Medicine Endocrinology, Diabetes & Metabolism
DX: E03.8 Other specified hypothyroidism (principal)
CPT/HCPCS: 36415; 84439; 84443